=== PATIENT | female | born 1940 | race Caucasian/White ===

== ENCOUNTER 2017-11-01 15:15 | Outpatient (RCR) | payer MEDICARE, SELFPAY ==
--- NOTE | 2017-09-27 10:42 | PT.OTN ---
Current Diagnoses Other chronic pain (09/27/17) Bilateral primary osteoarthritis of knee (09/27/17) Pain in right knee (09/27/17) Other specified enthesopathies of unspecified lower limb, excluding foot (09/27/17) Transition note: On September 26, 2017 our therapy services consisting of Speech, Occupational, and Physical Therapy transitioned from the [employer] electronic documentation system to a new [employer] electronic documentation system.?? All documentation prior to September 26 can be found under [employer] saved data. From September 26 forward all medical record documentation will be in [employer] 6.1.
--- NOTE | 2017-09-27 14:45 | PT.OTN ---
Current Diagnoses Other chronic pain (09/27/17) Bilateral primary osteoarthritis of knee (09/27/17) Pain in right knee (09/27/17) Other specified enthesopathies of unspecified lower limb, excluding foot (09/27/17) Physical Therapy Treatment Note PT-OP-A Visit Information Start: 09/27/17 12:51 Freq: Status: Active Protocol: Activity Type Activity Date Activity User E-Sign Co-Sign Detail Recorded Client Recorded Date Recorded By Document 09/27/17 14:42 EA [id number] 09/27/17 14:44 EA 09/27/17 14:42 Out-Patient Physical Therapy Visit Information [Visit Information] -Visit Type Treatment Note -Total Visit Minutes 46 -Visit Number 3 -Number of SHOP SUPERVISOR Visits 0 PT-OP-C Subjective Start: 09/27/17 12:51 Freq: Status: Active Protocol: Activity Type Activity Date Activity User E-Sign Co-Sign Detail Recorded Client Recorded Date Recorded By Document 09/27/17 12:52 EA [id number] 09/27/17 12:54 EA 09/27/17 12:52 OP-PT Subjective [Patient Comments] -Patient Comments Patient reports she has been following recommended HEP and knee pain is much less at this time. Patient wants to know if previous cardio machine exercise still possible. -Patient Reported Progress Improving PT-OP-Q Treatments Start: 09/27/17 12:51 Freq: Status: Active Protocol: Activity Type Activity Date Activity User E-Sign Co-Sign Detail Recorded Client Recorded Date Recorded By Document 09/27/17 12:54 EA [id number] 09/27/17 13:01 EA 09/27/17 12:54 Cardio Equipment [Recumbent Elliptical ([employer])] -Duration (Minutes) 8 -Resistance 2 Gym Equipment [Shuttle Recovery] Unilateral Squats -Details R, SLS -Resistance 1 cord -Shuttle Recovery Platform Stable -Reps/Time 15 reps x 2 Bilateral Squats -Details 0-90 angle -Shuttle Recovery Platform Stable -Reps/Time 15 reps x 2 at 2 cords Therapeutic Exercises [Other Exercises] 1 -Other Exercise Name Sit to stand squat w/ hand support to progress with heel raises -Side bilateral -Resistance BW -Equipment Used // bars/rails -Reps/Minutes 10 reps x 2 -Comments knees not over toes Self-Care/Home Management Treatment [Education] -Patient Education Home Exercise Program -Other Education Patient educated w/ proper exercises sequencing from wam-up, cardio to HEP. PT-OP-R Modalities Start: 09/27/17 12:51 Freq: Status: Active Protocol: Activity Type Activity Date Activity User E-Sign Co-Sign Detail Recorded Client Recorded Date Recorded By Document 09/27/17 13:01 CARY [email or web address] 09/27/17 13:03 EA 09/27/17 13:01 Electric Stimulation [Electric Stimulation] Interferential Current (IFC) -Body Location Medial hamstring/quads -Duration (Minutes) 15 -Contraction Type Normal -Target/Sweep Target -High/Low High -Patient Position Supine -Combined With Heat/Cold Cold Pack Hot Pack/Cold Pack [Treatment] Cold Pack -Patient Position Supine -Treatment Duration (minutes) 15 -Patient Tolerance Good Ultrasound Therapy [Treatment] Right Knee -Treatment Duration (minutes) 8 -Patient Position Supine -Coupling Medium Ultrasound Gel -Frequency Setting (mHz) 1 -Mode Setting Pulsed -Intensity Setting (w/cm2) 1.0 -Patient Tolerance Fair [Comment] -Treatment Comment medial hamstring distal tendon, and medial distal quads tendon. PT-OP-T Assessment and Plan Start: 09/27/17 12:51 Freq: Status: Active Protocol: Activity Type Activity Date Activity User E-Sign Co-Sign Detail Recorded Client Recorded Date Recorded By Document 09/27/17 14:28 CARY [id number] 09/27/17 14:31 EA 09/27/17 14:28 Physical Therapy Assessment [Assessment Summary] -Assessment Patient unable to tolerate leg extension and curl machine due to increased of knee pain, however other exercises did not show increased in symptoms. Recommended patient begin cardio machine at home w/ min to moderate intensity and ice knee after any exercises. Physical Therapy Plan [Next Visit Focus/Plan] -Next Visit Plan Cont w/ current rehab. To begin with Isotonic ankle weight knee and hip exercises to right LE or as tolerated.
--- NOTE | 2017-09-29 12:41 | PT.OTN ---
Current Diagnoses Other chronic pain (09/29/17) Bilateral primary osteoarthritis of knee (09/29/17) Pain in right knee (09/29/17) Other specified enthesopathies of unspecified lower limb, excluding foot (09/29/17) Physical Therapy Treatment Note PT-OP-A Visit Information Start: 09/27/17 12:51 Freq: Status: Active Protocol: Activity Type Activity Date Activity User E-Sign Co-Sign Detail Recorded Client Recorded Date Recorded By Document 09/29/17 09:45 GGD [email or web address] 09/29/17 12:33 GGD 09/29/17 09:45 Out-Patient Physical Therapy Visit Information [Visit Information] -Visit Type Treatment Note -Total Visit Minutes 55 -Visit Number 4 -Number of ADVERTISING ASSOCIATE Visits 1 PT-OP-C Subjective Start: 09/27/17 12:51 Freq: Status: Active Protocol: Activity Type Activity Date Activity User E-Sign Co-Sign Detail Recorded Client Recorded Date Recorded By Document 09/29/17 09:45 GGD [email or web address] 09/29/17 12:33 GGD 09/29/17 09:45 OP-PT Subjective [Patient Comments] -Patient Comments Pt states she not having pain and is walking up to 3/4 of a mil. -Patient Reported Progress Improving PT-OP-Q Treatments Start: 09/27/17 12:51 Freq: Status: Active Protocol: Activity Type Activity Date Activity User E-Sign Co-Sign Detail Recorded Client Recorded Date Recorded By Document 09/29/17 09:45 GGD [email or web address] 09/29/17 12:41 GGD 09/29/17 09:45 Cardio Equipment [Recumbent Elliptical ([employer])] -Duration (Minutes) 8 -Resistance 2 -Seat Position 7 Gym Equipment [Shuttle Recovery] Unilateral Squats -Details R, SLS -Resistance 25# -Shuttle Recovery Platform Stable -Reps/Time 15 reps x 2 Bilateral Squats -Details 0-90 angle -Resistance 50# -Shuttle Recovery Platform Stable -Reps/Time 15 reps x 2 Therapeutic Exercises [Supine Exercises] 2 -Supine Exercise Name SAQ -Side right -Resistance 1 -Equipment Used ankle weight -Reps/Minutes 10x 1 -Supine Exercise Name SLR -Side right -Reps/Minutes 10 [Sidelying Exercises] 1 -Sidelying Exercise Name Hip abd -Side right -Resistance 1# -Equipment Used ankle weight -Reps/Minutes 15 [Other Exercises] 1 -Other Exercise Name Sit to stand squat w/ hand support to progress with heel raises -Side bilateral -Resistance BW -Equipment Used // bars/rails -Reps/Minutes 10 reps x 2 -Comments knees not over toes PT-OP-R Modalities Start: 09/27/17 12:51 Freq: Status: Active Protocol: Activity Type Activity Date Activity User E-Sign Co-Sign Detail Recorded Client Recorded Date Recorded By Document 09/29/17 09:45 GGD [email or web address] 09/29/17 12:41 GGD 09/29/17 09:45 Electric Stimulation [Electric Stimulation] Interferential Current (IFC) -Body Location Medial hamstring/quads -Duration (Minutes) 15 -Contraction Type Normal -Target/Sweep Sweep -High/Low High -Patient Position Supine -Combined With Heat/Cold Cold Pack Ultrasound Therapy [Treatment] Right Knee -Treatment Duration (minutes) 8 -Patient Position Supine -Coupling Medium Ultrasound Gel -Frequency Setting (mHz) 3 -Mode Setting Pulsed -Intensity Setting (w/cm2) 1.0 -Patient Tolerance Good PT-OP-T Assessment and Plan Start: 09/27/17 12:51 Freq: Status: Active Protocol: Activity Type Activity Date Activity User E-Sign Co-Sign Detail Recorded Client Recorded Date Recorded By Document 09/29/17 09:45 GGD [email or web address] 09/29/17 12:41 GGD 09/29/17 09:45 Physical Therapy Assessment [Assessment Summary] -Assessment Pt improving with LE strengthening tolerance. She was unable to tolerated SLR with ankle weight and LAQ. She had improved tolerance to PUS. Physical Therapy Plan [Frequency and Duration] -Frequency of Treatment 2 -Duration of Treatment 8 weeks -Plan of Care Start Date 09/19/17 -Plan of Care End Date 11/13/17 [Next Visit Focus/Plan] -Next Visit Plan Progress under current plan of care. Increase LE strengthening as tolerated.
--- NOTE | 2017-10-03 14:33 | PT.OTN ---
Current Diagnoses Other chronic pain (10/03/17) Bilateral primary osteoarthritis of knee (10/03/17) Pain in right knee (10/03/17) Other specified enthesopathies of unspecified lower limb, excluding foot (10/03/17) Physical Therapy Treatment Note PT-OP-A Visit Information Start: 09/27/17 12:51 Freq: Status: Active Protocol: Activity Type Activity Date Activity User E-Sign Co-Sign Detail Recorded Client Recorded Date Recorded By Document 10/03/17 11:15 GGD [email or web address] 10/03/17 14:33 [facility] 10/03/17 11:15 Out-Patient Physical Therapy Visit Information [Visit Information] -Visit Type Treatment Note -Visit Start Time 11:15 -Visit Stop Time 12:10 -Total Visit Minutes 55 -Visit Number 5 -Number of HEALTH SANITARIAN Visits 2 [Evaluation Information] -Evaluation Date 09/19/17 PT-OP-C Subjective Start: 09/27/17 12:51 Freq: Status: Active Protocol: Activity Type Activity Date Activity User E-Sign Co-Sign Detail Recorded Client Recorded Date Recorded By Document 10/03/17 11:15 GGD [email or web address] 10/03/17 14:33 GGD 10/03/17 11:15 OP-PT Subjective [Patient Comments] -Patient Comments Pt states that she doing her HEP and feels less pain. -Patient Reported Progress Improving PT-OP-Q Treatments Start: 09/27/17 12:51 Freq: Status: Active Protocol: Activity Type Activity Date Activity User E-Sign Co-Sign Detail Recorded Client Recorded Date Recorded By Document 10/03/17 11:15 GGD [email or web address] 10/03/17 14:33 GGD 10/03/17 11:15 Cardio Equipment [Recumbent Elliptical ([employer])] -Duration (Minutes) 8 -Resistance 2 -Seat Position 7 Gym Equipment [Shuttle Recovery] Unilateral Squats -Details R, SLS -Resistance 25# -Shuttle Recovery Platform Stable -Reps/Time 15 reps x 2 Bilateral Squats -Details 0-90 angle -Resistance 62# -Shuttle Recovery Platform Stable -Reps/Time 15 reps x 2 Therapeutic Exercises [Supine Exercises] 2 -Supine Exercise Name SAQ -Side right -Resistance 1 -Equipment Used ankle weight -Reps/Minutes 10x 1 -Supine Exercise Name SLR -Side right -Reps/Minutes 10 x 2 [Sidelying Exercises] 1 -Sidelying Exercise Name Hip abd -Side right -Resistance 1# -Equipment Used ankle weight -Reps/Minutes 15 [Other Exercises] 1 -Other Exercise Name Sit to stand squat w/ hand support to progress with heel raises -Side bilateral -Resistance BW -Equipment Used // bars/rails -Reps/Minutes 10 reps x 2 -Comments knees not over toes PT-OP-R Modalities Start: 09/27/17 12:51 Freq: Status: Active Protocol: Activity Type Activity Date Activity User E-Sign Co-Sign Detail Recorded Client Recorded Date Recorded By Document 10/03/17 11:15 GGD [email or web address] 10/03/17 14:33 GGD 10/03/17 11:15 Electric Stimulation [Electric Stimulation] Interferential Current (IFC) -Body Location Medial hamstring/quads -Duration (Minutes) 15 -Contraction Type Normal -Target/Sweep Sweep -High/Low High -Patient Position Supine -Combined With Heat/Cold Cold Pack Ultrasound Therapy [Treatment] Right Knee -Treatment Duration (minutes) 8 -Patient Position Supine -Coupling Medium Ultrasound Gel -Frequency Setting (mHz) 3 -Mode Setting Pulsed -Intensity Setting (w/cm2) 1.0 -Patient Tolerance Good PT-OP-T Assessment and Plan Start: 09/27/17 12:51 Freq: Status: Active Protocol: Activity Type Activity Date Activity User E-Sign Co-Sign Detail Recorded Client Recorded Date Recorded By Document 10/03/17 11:15 GGD [email or web address] 10/03/17 14:33 GGD 10/03/17 11:15 Physical Therapy Assessment [Assessment Summary] -Assessment Pt improving with LE strengthening tolerance and decrease extensor lag with SLR. Physical Therapy Plan [Frequency and Duration] -Frequency of Treatment 2 -Duration of Treatment 8 weeks -Plan of Care Start Date 09/19/17 -Plan of Care End Date 11/13/17 [Next Visit Focus/Plan] -Next Visit Plan Progress under current plan of care. Increase LE strengthening, LAQ.
--- NOTE | 2017-10-05 13:51 | PT.OTN ---
Current Diagnoses Other chronic pain (10/05/17) Bilateral primary osteoarthritis of knee (10/05/17) Pain in right knee (10/05/17) Other specified enthesopathies of unspecified lower limb, excluding foot (10/05/17) Physical Therapy Treatment Note PT-OP-A Visit Information Start: 09/27/17 12:51 Freq: Status: Active Protocol: Document 10/05/17 11:11 EA (Rec: 10/05/17 11:15 EA [id number]) Out-Patient Physical Therapy Visit Information Visit Information Visit Type Treatment Note Visit Start Time 10:30 Visit Stop Time 11:25 Total Visit Minutes 55 Visit Number 6 Number of MULTIPLE DRILL OPERATOR Visits 2 PT-OP-C Subjective Start: 09/27/17 12:51 Freq: Status: Active Protocol: Document 10/05/17 11:11 EA (Rec: 10/05/17 11:15 EA [id number]) OP-PT Subjective Patient Comments Patient Comments Patient reports has been compliant to HEP and is improving; states she feels much improve at this time. Patient Reported Progress Improving PT-OP-Q Treatments Start: 09/27/17 12:51 Freq: Status: Active Protocol: Document 10/05/17 13:05 EA (Rec: 10/05/17 13:50 EA [id number]) Cardio Equipment Recumbent Elliptical ([employer]) Duration (Minutes) 8 Resistance 2 Seat Position 7 Therapeutic Exercises Supine Exercises 1 Supine Exercise Name SLR Side right Reps/Minutes 10 x 2 Sitting Exercises 2 Sitting Exercise Name Hip flexion Side bilateral Resistance 5 lbs AW Reps/Minutes 12 x 2 1 Sitting Exercise Name leg extension pain free Side right Resistance ankle weight x 2 lbs Reps/Minutes 12 x 3 Other Exercises 1 Other Exercise Name Sit to stand squat w/ hand support to progress with heel raises Side bilateral Resistance BW Equipment Used // bars/rails Reps/Minutes 10 reps x 2 Comments knees not over toes PT-OP-R Modalities Start: 09/27/17 12:51 Freq: Status: Active Protocol: Document 10/05/17 13:05 EA (Rec: 10/05/17 13:50 EA [id number]) Electric Stimulation Electric Stimulation Interferential Current (IFC) Body Location Medial hamstring/quads Duration (Minutes) 15 Contraction Type Normal Target/Sweep Sweep High/Low High Patient Position Supine Combined With Heat/Cold Cold Pack Ultrasound Therapy Treatment Right Knee Treatment Duration (minutes) 8 Patient Position Supine Frequency Setting (mHz) 1 Mode Setting Pulsed Intensity Setting (w/cm2) 1.2 Patient Tolerance Good PT-OP-T Assessment and Plan Start: 09/27/17 12:51 Freq: Status: Active Protocol: Document 10/05/17 11:11 EA (Rec: 10/05/17 11:15 EA [id number]) Physical Therapy Assessment Assessment Summary Assessment Patient tolerated treatment and is improving well. Physical Therapy Plan Next Visit Focus/Plan Next Visit Plan Cont. w/ current plan.
--- NOTE | 2017-10-10 16:01 | PT.OTN ---
Current Diagnoses Other chronic pain (10/10/17) Bilateral primary osteoarthritis of knee (10/10/17) Pain in right knee (10/10/17) Other specified enthesopathies of unspecified lower limb, excluding foot (10/10/17) Physical Therapy Treatment Note PT-OP-A Visit Information Start: 09/27/17 12:51 Freq: Status: Active Protocol: Document 10/10/17 15:23 EA (Rec: 10/10/17 15:58 EA [id number]) Out-Patient Physical Therapy Visit Information Visit Information Visit Type Treatment Note Visit Start Time 02:30 Visit Stop Time 03:25 Visit Number 7 PT-OP-C Subjective Start: 09/27/17 12:51 Freq: Status: Active Protocol: Document 10/10/17 15:23 EA (Rec: 10/10/17 15:58 EA [id number]) OP-PT Subjective Patient Comments Patient Comments Pt reports both knees quite sore last session but much feeling better at this time. Pt states that she has been complaint w/ HEP. Patient Reported Progress Improving PT-OP-Q Treatments Start: 09/27/17 12:51 Freq: Status: Active Protocol: Document 10/10/17 15:23 EA (Rec: 10/10/17 15:58 EA [id number]) Cardio Equipment Recumbent Elliptical ([employer]) Duration (Minutes) 8 Resistance 2 Seat Position 8 Gym Equipment Shuttle Recovery Unilateral Squats Details R, SLS Resistance 25# Shuttle Recovery Platform Stable Reps/Time 15 reps x 2 Bilateral Squats Details 0-90 angle Resistance 62# Shuttle Recovery Platform Stable Reps/Time 15 reps x 2 Therapeutic Exercises Supine Exercises 2 Supine Exercise Name SAQ Side right Resistance 1 Equipment Used ankle weight Reps/Minutes 10x 1 Supine Exercise Name SLR Side right Reps/Minutes 10 x 2 Sitting Exercises 2 Sitting Exercise Name Hip flexion Side bilateral Resistance 5 lbs AW Reps/Minutes 12 x 2 1 Sitting Exercise Name leg extension pain free Side right Resistance ankle weight x 2 lbs Reps/Minutes 12 x 3 Other Exercises 1 Other Exercise Name Sit to stand squat w/ hand support to progress with heel raises Side bilateral Resistance BW Equipment Used // bars/rails Reps/Minutes 10 reps x 2 Comments knees not over toes PT-OP-R Modalities Start: 09/27/17 12:51 Freq: Status: Active Protocol: Document 10/10/17 15:23 EA (Rec: 10/10/17 15:58 EA [id number]) Electric Stimulation Electric Stimulation Interferential Current (IFC) Body Location Medial hamstring/quads Duration (Minutes) 15 Contraction Type Normal Target/Sweep Sweep High/Low High Patient Position Supine Combined With Heat/Cold Cold Pack Ultrasound Therapy Treatment Right Knee Treatment Duration (minutes) 8 Patient Position Supine Frequency Setting (mHz) 1 Mode Setting Pulsed Intensity Setting (w/cm2) 1.2 Patient Tolerance Good PT-OP-T Assessment and Plan Start: 09/27/17 12:51 Freq: Status: Active Protocol: Document 10/10/17 15:23 EA (Rec: 10/10/17 15:58 EA [id number]) Physical Therapy Assessment Assessment Summary Assessment Patient had improved strength and tolerance to exercises today; high sensitive pain spot still noted to medial distal quads tendon. Physical Therapy Plan Next Visit Focus/Plan Next Visit Plan Progress under current joyce; add wlla squat next visit as tolerated.
--- NOTE | 2017-10-12 13:46 | PT.OTN ---
Current Diagnoses Other chronic pain (10/12/17) Bilateral primary osteoarthritis of knee (10/12/17) Pain in right knee (10/12/17) Other specified enthesopathies of unspecified lower limb, excluding foot (10/12/17) Physical Therapy Treatment Note PT-OP-A Visit Information Start: 09/27/17 12:51 Freq: Status: Active Protocol: Document 10/12/17 12:14 EA (Rec: 10/12/17 13:03 EA [id number]) Out-Patient Physical Therapy Visit Information Visit Information Visit Type Treatment Note Visit Start Time 09:45 Visit Stop Time 10:30 Visit Number 7 PT-OP-C Subjective Start: 09/27/17 12:51 Freq: Status: Active Protocol: Document 10/12/17 12:14 EA (Rec: 10/12/17 13:03 EA [id number]) OP-PT Subjective Patient Comments Patient Comments Patient reports new knee pain appears in the morning but decreased after few activities; states today much feel better. Patient Reported Progress Improving PT-OP-Q Treatments Start: 09/27/17 12:51 Freq: Status: Active Protocol: Document 10/12/17 12:14 EA (Rec: 10/12/17 13:03 EA [id number]) Cardio Equipment Recumbent Elliptical ([employer]) Duration (Minutes) 8 Resistance 3 Gym Equipment Shuttle Recovery Unilateral Squats Details R, SLS Resistance 25- 37 Shuttle Recovery Platform Stable Reps/Time 15 reps x 3 Bilateral Squats Details 0-90 angle Resistance 50 -87 Shuttle Recovery Platform Stable Reps/Time 15 reps x3 Therapeutic Exercises Supine Exercises 1 Supine Exercise Name SLR Side right Reps/Minutes 10 x 2 Sidelying Exercises 1 Sidelying Exercise Name Hip abd Side right Resistance 1# Equipment Used ankle weight Reps/Minutes 15 Sitting Exercises 2 Sitting Exercise Name Hip flexion Side bilateral Resistance 5 lbs AW Reps/Minutes 12 x 2 1 Sitting Exercise Name leg extension pain free Side right Resistance ankle weight x 2 lbs Reps/Minutes 12 x 3 Other Exercises 1 Other Exercise Name Sit to stand squat w/ hand support to progress with heel raises Side bilateral Resistance BW Equipment Used // bars/rails Reps/Minutes 10 reps x 2 Comments knees not over toes PT-OP-R Modalities Start: 09/27/17 12:51 Freq: Status: Active Protocol: Document 10/12/17 12:14 EA (Rec: 10/12/17 13:03 EA [id number]) Electric Stimulation Electric Stimulation Interferential Current (IFC) Contraction Type Normal Combined With Heat/Cold Cold Pack PT-OP-T Assessment and Plan Start: 09/27/17 12:51 Freq: Status: Active Protocol: Document 10/12/17 12:14 EA (Rec: 10/12/17 13:03 EA [id number]) Physical Therapy Assessment Progress Towards Goals Progress Towards Goals Slow Progress - Other Assessment Summary Assessment Tolerated treatment well; no signs of acute inflammation Physical Therapy Plan Next Visit Focus/Plan Next Visit Plan Cont. with current plan; progress as tolerated
--- NOTE | 2017-10-17 17:06 | PT.OTN ---
Current Diagnoses Other chronic pain (10/17/17) Bilateral primary osteoarthritis of knee (10/17/17) Pain in right knee (10/17/17) Other specified enthesopathies of unspecified lower limb, excluding foot (10/17/17) Physical Therapy Treatment Note PT-OP-A Visit Information Start: 09/27/17 12:51 Freq: Status: Active Protocol: Document 10/17/17 13:45 GGD (Rec: 10/17/17 17:06 GGD [email or web address]) Out-Patient Physical Therapy Visit Information Visit Information Visit Type Treatment Note Visit Start Time 13:45 Visit Stop Time 14:40 Total Visit Minutes 55 Visit Number 9 Number of TASSEL MAKING MACHINE OPERATOR Visits 1 Evaluation Information Evaluation Date 09/19/17 PT-OP-C Subjective Start: 09/27/17 12:51 Freq: Status: Active Protocol: Document 10/17/17 13:45 GGD (Rec: 10/17/17 17:06 GGD [email or web address]) OP-PT Subjective Patient Comments Patient Comments Pt states knee pain and strength is improving. Patient Reported Progress Improving PT-OP-Q Treatments Start: 09/27/17 12:51 Freq: Status: Active Protocol: Document 10/17/17 13:45 GGD (Rec: 10/17/17 17:06 GGD [email or web address]) Cardio Equipment Recumbent Elliptical ([employer]) Duration (Minutes) 8 Resistance 3 Gym Equipment Shuttle Recovery Unilateral Squats Details R, SLS Resistance 25- 37 Shuttle Recovery Platform Stable Reps/Time 15 reps x 3 Bilateral Squats Details 0-90 angle Resistance 50 -87 Shuttle Recovery Platform Stable Reps/Time 15 reps x3 Therapeutic Exercises Supine Exercises 1 Supine Exercise Name SLR Side right Resistance 1# Reps/Minutes 10 x 2 Sidelying Exercises 1 Sidelying Exercise Name Hip abd Side right Resistance 1# Equipment Used ankle weight Reps/Minutes 15 Sitting Exercises 1 Sitting Exercise Name leg extension pain free Side right Resistance ankle weight x 2 lbs Reps/Minutes 12 x 3 Standing Exercises 2 Standing Exercise Name step ups Equipment Used 4 in 1 Standing Exercise Name wall squats with ball Reps/Minutes 10 Other Exercises 1 Other Exercise Name Sit to stand squat w/ hand support to progress with heel raises Side bilateral Resistance BW Equipment Used // bars/rails Reps/Minutes 10 reps x 2 Comments knees not over toes PT-OP-R Modalities Start: 09/27/17 12:51 Freq: Status: Active Protocol: Document 10/17/17 13:45 GGD (Rec: 10/17/17 17:06 GGD [email or web address]) Electric Stimulation Electric Stimulation Interferential Current (IFC) Body Location Medial hamstring/quads Duration (Minutes) 15 Contraction Type Normal Target/Sweep Sweep High/Low High Patient Position Supine Combined With Heat/Cold Cold Pack PT-OP-T Assessment and Plan Start: 09/27/17 12:51 Freq: Status: Active Protocol: Document 10/17/17 13:45 GGD (Rec: 10/17/17 17:06 GGD [email or web address]) Physical Therapy Assessment Assessment Summary Assessment Slow improvement in strength, diffcultly with squats and stairs. Physical Therapy Plan Frequency and Duration Frequency of Treatment 2 Duration of Treatment 8 weeks Plan of Care Start Date 09/19/17 Plan of Care End Date 11/13/17 Next Visit Focus/Plan Next Visit Plan Re-eval objective measurements for progress note and g-codes
--- NOTE | 2017-11-02 11:06 | PT.OTRE ---
Current Diagnoses Other chronic pain (11/01/17) Bilateral primary osteoarthritis of knee (11/01/17) Pain in right knee (11/01/17) Other specified enthesopathies of unspecified lower limb, excluding foot (11/01/17) Surgical History Status post appendectomy Status post laparoscopic cholecystectomy (04/07/16) Provider Visit Care Team Role Provider Type Andrew Gonzalez MD Family Provider Physician Primary Care Provider Specialty: Internal Medicine Address: [address] [place] [address] [address], [address] Email: [email or web address] Rito Zurita DO Attending Provider Non-Staff Specialty: Orthopedics Address: [address] [facility] [place] [address], [place], [address] Email: Physical Therapy Re-Evaluation PT-OP-A Visit Information Start: 09/27/17 12:51 Freq: Status: Active Protocol: Document 11/01/17 17:00 EA (Rec: 11/01/17 17:27 EA [id number]) Out-Patient Physical Therapy Visit Information Visit Information Visit Type Treatment Note Visit Note Progress reports perform to this session. Total Visit Minutes 15 Visit Number 10 PT-OP-B Current Condition Start: 09/27/17 12:51 Freq: Status: Active Protocol: Document 11/01/17 17:00 EA (Rec: 11/01/17 17:27 EA [id number]) Current Condition History of Current Condition Onset Date 5 years chronic condition and was intensified earlier in 2018. History of Current Condition Present condition started 5 years ago with single injury reports that she hyperextend the knee years ago; states pain disappear and was able to function few after the injury . Pt states earlier this year when she noted right knee pain is increasing and is not improving. Patient had 10 PT session including today's date and has been improving since the last visit until last week when patient accidentally hyperextend the knee and aggravated the condition. Patient seen his doctor and MRI reveals meniscal tear with severe tricompartmental OA. Prior Treatments and Tests Skilled PT sessions x 9 Future Testing and Treatments Planned None at the moment Treatment Goals Patient/Caregiver Goals Patient wants to decrease knee pain and strengthen it so she could perform usual daily activities without discomfort. Prior Functional Status Baseline Function- ADL's Independent Baseline Function- Mobility Independent Current Functional Impairments (Reported) Functional Limitations- ADL's Indep with increase time. Functional Limitations- Mobility/Gait Indep with increase time with STC and knee brace PT-OP-C Subjective Start: 09/27/17 12:51 Freq: Status: Active Protocol: Document 11/01/17 17:00 EA (Rec: 11/01/17 17:27 EA [id number]) OP-PT Subjective Patient Comments Patient Comments Patient reports right knee got worsen after hyperextending ( ) it while doing garden work. Patient reports that she feels better that morning prior to injury where she was able to climb up stairs without difficulty in which she was not able to do it for a long time. Patient states that she will follow her doctor advised to reduced inflammation and pain before coming back to skilled PT. Patient Reported Progress Worse Patient Questionnaires Oswestry Low Back Index Oswestry Score 73 (October 17 Prior to latest injury) PT-OP-G Mobility & Gait Start: 09/27/17 12:51 Freq: Status: Active Protocol: Document 11/01/17 17:00 EA (Rec: 11/01/17 17:27 EA [id number]) OP Gait Assessment Assistive Devices Assistive Device Straight Cane Orthotic/Prosthetic Devices or Brace: Yes Gait Deviations General Gait Pattern Antalgic Factors Limiting Gait Function Factors Limiting Gait Function Decreased Strength Pain Comments Gait Comments Decreased WB to right LE PT-OP-M Strength Start: 09/27/17 12:51 Freq: Status: Active Protocol: Document 11/01/17 17:00 EA (Rec: 11/02/17 11:01 EA [id number]) Knee Strength Knee Manual Muscle Testing Right Flexion (S2) 4- Good- Extension (L3) 3- Fair- Reason Not Measured Pain Comments weakness and atrophy of quads PT-OP-Q Treatments Start: 09/27/17 12:51 Freq: Status: Active Protocol: Document 11/01/17 17:00 EA (Rec: 11/01/17 17:27 EA [id number]) Gait Training Gait Activity 1 Description Level ambulation: heel to toe gait pattern step through Treatment Focus Step through gait PT-OP-R Modalities Start: 09/27/17 12:51 Freq: Status: Active Protocol: Document 10/17/17 13:45 GGD (Rec: 10/17/17 17:06 GGD [id number]) Electric Stimulation Electric Stimulation Interferential Current (IFC) Body Location Medial hamstring/quads Duration (Minutes) 15 Contraction Type Normal Target/Sweep Sweep High/Low High Patient Position Supine Combined With Heat/Cold Cold Pack PT-OP-T Assessment and Plan Start: 09/27/17 12:51 Freq: Status: Active Protocol: Document 11/01/17 17:00 EA (Rec: 11/01/17 17:27 EA [id number]) Physical Therapy Assessment Rehab Potential Rehabilitation Potential Fair Impairments Impairments Activity Tolerance Gait Pain ROM Strength Goals Three Impairment Grade 2 tenderness to right anterior knee (distomedial side) Skilled Nursing Goal (LTG) Patient will exhibit Grade 1 tenderness to right ant knee LTG Duration 4 wks. Two Impairment Weakness to right knee extensors Skilled Nursing Goal (LTG) Patient will exhibit MMT to right knee extensors of at least 3+/5 LTG Duration 4 wks One Impairment Pain score 6/10 Relays Draftsperson Goal (LTG) Patient will reports pain score of 2/10 with weight bearing activities. LTG Duration 4 wks Progress Towards Goals Progress Towards Goals Slow Progress - Other Progress Comments Patient exhibits relapse at this time due to recent home incident. Assessment Summary Assessment Patient requested to cancel all appointment and will call back once she is ready. Patient had relapsed due to recent injury at home. I recommended to focus on decreasing inflammation and other symptoms prior to resuming physical therapy. I recommended to see her physician for further advise and recommendations. Physical Therapy Plan Frequency and Duration Frequency of Treatment 2 x/wk once advise Plan of Care Start Date 11/01/17 Plan of Care End Date 12/20/17 Therapeutic Interventions Therapeutic Interventions Gait Training Home Exercise Program Joint Mobilizations Self-Care/Home Management Soft Tissue Mobilization Taping Therapeutic Exercises Modalities Cold Pack/Ice Massage Electric Stimulation Ultrasound Hold Physical Therapy Reason For Hold Patient request. Next Visit Focus/Plan Next Note Type Treatment Note Next Visit Plan assessment would be indicate prior to commencing planned PT program. Please Sign and Return: I have reviewed this Plan of Care and certify that the skilled therapy services above are required to meet the patient?s needs. Physician Signature Date Printed Name and Credentials Clinical Instructor Signature Printed Name and Credentials
--- NOTE | 2017-11-02 11:07 | PT.OPPOC ---
Current Diagnoses Other chronic pain (11/01/17) Bilateral primary osteoarthritis of knee (11/01/17) Pain in right knee (11/01/17) Other specified enthesopathies of unspecified lower limb, excluding foot (11/01/17) Provider Visit Care Team Role Provider Type Andrew Gonzalez MD Family Provider Physician Primary Care Provider Specialty: Internal Medicine Address: [address] [place] [address] [address], [place], [address] Email: [email or web address] Rito Zurita DO Attending Provider Non-Staff Specialty: Orthopedics Address: [address] [facility] [address], [place], [address] Email: Plan Of Care PT-OP-T Assessment and Plan Start: 09/27/17 12:51 Freq: Status: Active Protocol: Document 11/01/17 17:00 CARY (Rec: 11/01/17 17:27 EA [id number]) Physical Therapy Assessment Rehab Potential Rehabilitation Potential Fair Impairments Impairments Activity Tolerance Gait Pain ROM Strength Goals Three Impairment Grade 2 tenderness to right anterior knee (distomedial side) Halfway Goal (LTG) Patient will exhibit Grade 1 tenderness to right ant knee LTG Duration 4 wks. Two Impairment Weakness to right knee extensors Halfway Goal (LTG) Patient will exhibit MMT to right knee extensors of at least 3+/5 LTG Duration 4 wks One Impairment Pain score 6/10 Halfway Goal (LTG) Patient will reports pain score of 2/10 with weight bearing activities. LTG Duration 4 wks Progress Towards Goals Progress Towards Goals Slow Progress - Other Progress Comments Patient exhibits relapse at this time due to recent home incident. Assessment Summary Assessment Patient requested to cancel all appointment and will call back once she is ready. Patient had relapsed due to recent injury at home. I recommended to focus on decreasing inflammation and other symptoms prior to resuming physical therapy. I recommended to see her physician for further advise and recommendations. Physical Therapy Plan Frequency and Duration Frequency of Treatment 2 x/wk once advise Plan of Care Start Date 11/01/17 Plan of Care End Date 12/20/17 Therapeutic Interventions Therapeutic Interventions Gait Training Home Exercise Program Joint Mobilizations Self-Care/Home Management Soft Tissue Mobilization Taping Therapeutic Exercises Modalities Cold Pack/Ice Massage Electric Stimulation Ultrasound Hold Physical Therapy Reason For Hold Patient request. Next Visit Focus/Plan Next Note Type Treatment Note Next Visit Plan assessment would be indicate prior to commencing planned PT program. Plan of Care Dates Plan of Care Start Date 11/01/17 Plan of Care End Date 12/20/17 Please Sign and Return: I have reviewed this Plan of Care and certify that the skilled therapy services above are required to meet the patient?s needs. Physician Signature Date Printed Name and Credentials Clinical Instructor Signature Printed Name and Credentials
--- NOTE | 2018-02-27 14:15 | PT.OPDS ---
Current Diagnoses Other chronic pain (11/01/17) Bilateral primary osteoarthritis of knee (11/01/17) Pain in right knee (11/01/17) Other specified enthesopathies of unspecified lower limb, excluding foot (11/01/17) Provider Visit Care Team Role Provider Type Andrew Gonzalez MD Family Provider Physician Primary Care Provider Specialty: Internal Medicine Address: [address] [place] [address] [address], [address] Email: [email or web address] Rito Zurita DO Attending Provider Non-Staff Specialty: Orthopedics Address: [address] [facility] [address], [place], [address] Email: Visit Number Visit Number 10 Discharge Summary PT-OP-B Current Condition Start: 09/27/17 12:51 Freq: Status: Active Protocol: Document 11/01/17 17:00 EA (Rec: 11/01/17 17:27 EA [id number]) Current Condition History of Current Condition Onset Date 5 years chronic condition and was intensified earlier in 2018. History of Current Condition Present condition started 5 years ago with single injury reports that she hyperextend the knee years ago; states pain disappear and was able to function few after the injury . Pt states earlier this year when she noted right knee pain is increasing and is not improving. Patient had 10 PT session including today's date and has been improving since the last visit until last week when patient accidentally hyperextend the knee and aggravated the condition. Patient seen his doctor at MRI reveals menical tear with severe tricompartmental OA. Prior Treatments and Tests Skilled PT sessions x 9 Future Testing and Treatments Planned None at the moment Treatment Goals Patient/Caregiver Goals Patient wants to decrease knee pain and strengthen it so she could perform usual daily activities without discomfort. Prior Functional Status Baseline Function- ADL's Independent Baseline Function- Mobility Independent Current Functional Impairments (Reported) Functional Limitations- ADL's Indep with increase time. Functional Limitations- Mobility/Gait Indep with increase time with STC and knee brace PT-OP-C Subjective Start: 09/27/17 12:51 Freq: Status: Active Protocol: Document 11/01/17 17:00 EA (Rec: 11/01/17 17:27 EA [id number]) OP-PT Subjective Patient Comments Patient Comments Patient reports right knee got worsen after hyperextending ( ) it while doing garden work. Patient reports that she feels better that morning prior to injury where she was able to climb up stairs without difficulty in which she was not able to do it for a long time. Patient states that she will follow her doctor advised to reduced inflammation and pain before coming back to skilled PT. Patient Reported Progress Worse Patient Questionnaires Oswestry Low Back Index Oswestry Score 73 (October 17 Prior to latest injury) PT-OP-G Mobility & Gait Start: 09/27/17 12:51 Freq: Status: Active Protocol: Document 11/01/17 17:00 EA (Rec: 11/01/17 17:27 EA [id number]) OP Gait Assessment Assistive Devices Assistive Device Straight Cane Orthotic/Prosthetic Devices or Brace: Yes Gait Deviations General Gait Pattern Antalgic Factors Limiting Gait Function Factors Limiting Gait Function Decreased Strength Pain Comments Gait Comments Decreased WB to right LE PT-OP-M Strength Start: 09/27/17 12:51 Freq: Status: Active Protocol: Document 11/01/17 17:00 EA (Rec: 11/02/17 11:01 EA [id number]) Knee Strength Knee Manual Muscle Testing Right Flexion (S2) 4- Good- Extension (L3) 3- Fair- Reason Not Measured Pain Comments weakness and atrophy of quads PT-OP-T Assessment and Plan Start: 09/27/17 12:51 Freq: Status: Active Protocol: Document 02/27/18 14:11 EA (Rec: 02/27/18 14:15 EA [id number]) Physical Therapy Assessment Assessment Summary Assessment Patient is discharged due to no longer attending physical therapy session. Patient did not call back after advising to call back once seen by her primary care. Physical Therapy Plan Discharge Physical Therapy Discharge Reasons No Longer Attending PT
== END 2018-03-12 09:03 ==
LOC: PHYS 15:15
PROVIDERS: Family Provider Internal Medicine; PCP Internal Medicine; Visit Provider Orthopaedic Surgery
DX: M76.899 Other specified enthesopathies of unspecified lower limb, excluding foot (principal); M17.0 Bilateral primary osteoarthritis of knee; M25.561 Pain in right knee; G89.29 Other chronic pain
CPT/HCPCS: 97010; 97014; 97035; 97110; 97116; G0283

== ENCOUNTER → 2018-04-11 09:24 | Outpatient (CLI) | payer MEDICARE, SELFPAY ==
[2018-04-11 16:33] LABS: Alanine Aminotransferase 31 IU/L (9-52); Albumin 4.6 g/dL (3.5-5.0); Albumin Globulin Ratio 1.9 (1.0-2.8); Alkaline Phosphatase 88 U/L (38-126); Aspartate Aminotransferase 25 IU/L (14-36); BUN Creatinine Ratio 21.1 (6-22); Bilirubin Total 0.5 mg/dL (0.2-1.3); Blood Urea Nitrogen 19 mg/dL (7-17); Calcium 9.8 mg/dL (8.4-10.2); Carbon Dioxide 29 mmol/L (22-32); Chloride 104 mmol/L (98-107); Cholesterol 251 mg/dL (140-199); Estimated Glomerular Filt Rate > 60.0 mL/min (>60); Globulin 2.4 g/dL (1.7-4.1); Glucose 100 mg/dL (80-110); HDL Cholesterol 44 mg/dL (40-60); HEMOLYSIS < 15 (0-50); Sodium 145 mmol/L (137-145); Triglycerides 439 mg/dL (35-150)
[2018-04-11 16:42] LABS: Potassium 5.6 mmol/L (3.4-5.1)
== END ==
PROVIDERS: PCP Internal Medicine; Visit Provider Internal Medicine
DX: E78.5 Hyperlipidemia, unspecified (principal); I10 Essential (primary) hypertension; K21.9 Gastro-esophageal reflux disease without esophagitis
CPT/HCPCS: 36415; 80053; 80061

== ENCOUNTER → 2018-09-06 10:36 | Outpatient (CLI) | payer MEDICARE, SELFPAY ==
--- NOTE | 2018-09-06 | DI.MG.S_ITS ---
BILATERAL DIGITAL SCREENING MAMMOGRAM 3D/2D WITH CAD: 09/06/2018 CLINICAL: Personal history of bilateral breast cancer. Comparison is made to exams dated: 08/31/2017 mammogram, 08/11/2016 mammogram, and 08/27/2015 mammogram - [facility]. The tissue of both breasts is heterogeneously dense. This may lower the sensitivity of mammography. Current study was also evaluated with a Computer Aided Detection (CAD) system. There are benign post operative findings in both breasts. There also are benign vascular calcifications in both breasts. There are mole markers on both breasts. No significant masses, calcifications, or other findings are seen in either breast. There has been no significant interval change. IMPRESSION: There is no mammographic evidence of malignancy. A 1 year screening mammogram is recommended. This exam was interpreted at Station ID: [id number]. NOTE: For mammograms, a report in lay terms will be sent to the patient. Approximately 15% of breast malignancies will not be visualized mammographically. In the management of a palpable breast mass, a negative mammogram must not discourage biopsy of a clinically suspicious lesion. Electronically Signed By: Martínez messina/samantha:09/07/2018 03:14:06 letter sent: Normal Exam ACR BI-RADS Category 2: Benign Finding(s) 3342F
== END ==
PROVIDERS: Family Provider Internal Medicine; PCP Internal Medicine; Visit Provider Internal Medicine
DX: Z12.31 Encounter for screening mammogram for malignant neoplasm of breast (principal)
CPT/HCPCS: 77063; 77067

== ENCOUNTER 2018-12-11 08:32 | Day surgery (SDC) | payer MEDICARE, SELFPAY ==
[2018-12-11 09:45] VITALS: BP 197/87; PULSE 85; RESP 20; TEMP 36.6; O2SAT 98; BMI 24.2
[2018-12-11] MEDS: PROPARACAINE 0.5% OPHTH SOL 2 DROPS EYE-OP (09:45)
[2018-12-11] MEDS: CATARACT EYE COMPOUND (10 DROPS/SYRINGE) 3 DROPS EYE-OP (09:50)
--- NOTE | 2018-12-11 10:11 | PM.PREOP ---
Pre-operative Note Interval Note History & Physical reviewed/Exam performed by Physician: No Changes to H&P: No
--- NOTE | 2018-12-11 10:12 | PM.OP.1 ---
Operative Date/Time/Diagnoses Pre-op diagnosis: Nuclear Cataract Left eye Post-op diagnosis: same Procedure & Clinicians Surgeon: Ravi Wood Anesthesia Type: MAC +/- and Sedation Operative Notes Procedure in detail: Patient brought to the operating suite. Tetracaine drops placed in the left eye. Patient was prepped and draped in sterile manner. Wire lid speculum was placed in the eye. Betadine drops were placed on the eye. This was irrigated. Lidocaine jelly was placed on the eye. A paracentesis port was created with a side-port blade. 0.1 mL 1% preservative free lidocaine was injected into the anterior chamber. The anterior chamber was deepened with viscoelastic. 2.6 mm keratome was used to create a temporal clear corneal incision. Cystotome and Utrata forceps were used to create continuous tear capsulorrhexis. Balanced salt solution was used to hydro dissect the nucleus. The phacoemulsification handpiece was inserted and the nucleus was removed using the stop and chop technique. The irrigation aspiration handpiece was inserted and the remaining cortex was removed. Anterior chamber was deepened with viscoelastic. An Goldstein ZCB00 intraocular lens with a power of 23.0 was injected into the capsular bag. Irrigation aspiration handpiece was inserted and the remaining viscoelastic was removed. Incision was hydrated with balanced salt solution and found to be leak free with pressure with Weck-Nika sponges. 0.1 mL Vigamox injected anterior chamber. 0.3 mL Kenalog 10 mg was injected subconjunctivally. Lid speculum was removed. The patient left the operating room in excellent condition. Complications: none Condition: stable Disposition: same day surgery
[2018-12-11] MEDS: MOXIFLOXACIN OPHTH DROPS 3 ML BOTTLE 2 DROPS INJ (10:29)
[2018-12-11] MEDS: TRIAMCINOLONE 50 MG/5 ML VIAL INJ (10:29)
[2018-12-11] MEDS: PHENYLEPHRINE/LIDOCAINE VIAL (OR) 0.2 ML EYE-OP (10:29)
[2018-12-11] MEDS: TETRACAINE 0.5% OPHTH DROPS 4 ML 2 DROPS EYE-OP (10:30)
[2018-12-11] MEDS: LIDOCAINE JELLY 2% 5 ML 1 APPLIC TOP (10:30)
[2018-12-11] MEDS: BALANCED SALT IRRIG SOLN NO.2 500 ML, EPINEPHrine 1 MG IRR (10:30)
[2018-12-11] MEDS: CHONDROIDTIN/SOD HYALURONATE 1.05 ML SYRINGE INTRAOCULA (10:30)
[2018-12-11 10:47] VITALS: BP 172/99; PULSE 60; RESP 16; TEMP 36.5; O2SAT 100
== END 2018-12-11 10:55 | disposition home or self-care (01) ==
LOC: OR 08:37
PROVIDERS: Family Provider Internal Medicine; PCP Internal Medicine; Visit Provider Ophthalmology
PROC: (CPT 66984; principal; 2018-12-11 10:45)
DX: H25.12 Age-related nuclear cataract, left eye (principal); I10 Essential (primary) hypertension
CPT/HCPCS: 66984; J0171; J2250; J3301

== ENCOUNTER 2018-12-25 10:27 | Day surgery (SDC) | payer MEDICARE, SELFPAY ==
[2018-12-25 11:07] VITALS: BP 164/88; PULSE 96; RESP 16; TEMP 37.4; O2SAT 98; BMI 25.7
[2018-12-25] MEDS: PROPARACAINE 0.5% OPHTH SOL 2 DROPS EYE-OP (11:14)
[2018-12-25] MEDS: CATARACT EYE COMPOUND (10 DROPS/SYRINGE) 3 DROPS EYE-OP (11:16)
--- NOTE | 2018-12-25 11:58 | PM.PREOP ---
Pre-operative Note Interval Note History & Physical reviewed/Exam performed by Physician: No Changes to H&P: No
--- NOTE | 2018-12-25 11:58 | PM.OP.1 ---
Operative Date/Time/Diagnoses Pre-op diagnosis: Nuclear cataract right eye Procedure & Clinicians Procedure: Cataract Surgery Same procedure as scheduled: Yes Surgeon: Ravi Wood Anesthesia Type: MAC +/- and Sedation Operative Notes Procedure in detail: Patient brought to the operating suite. Tetracaine drops placed in the right eye. Patient was prepped and draped in sterile manner. Wire lid speculum was placed in the eye. Betadine drops were placed on the eye. This was irrigated. Lidocaine jelly was placed on the eye. A paracentesis port was created with a side-port blade. 0.1 mL 1% preservative free lidocaine was injected into the anterior chamber. The anterior chamber was deepened with viscoelastic. 2.6 mm keratome was used to create a temporal clear corneal incision. Cystotome and Utrata forceps were used to create continuous tear capsulorrhexis. Balanced salt solution was used to hydro dissect the nucleus. The phacoemulsification handpiece was inserted and the nucleus was removed using the stop and chop technique. The irrigation aspiration handpiece was inserted and the remaining cortex was removed. Anterior chamber was deepened with viscoelastic. An Goldstein ZCB00 intraocular lens with a power of 23.0 was injected into the capsular bag. Irrigation aspiration handpiece was inserted and the remaining viscoelastic was removed. Incision was hydrated with balanced salt solution and found to be leak free with pressure with Weck-Nika sponges. 0.1 mL Vigamox injected anterior chamber. 0.3 mL Kenalog 10 mg was injected subconjunctivally. Lid speculum was removed. The patient left the operating room in excellent condition. Complications: none Condition: stable Disposition: same day surgery
[2018-12-25] MEDS: TRIAMCINOLONE 50 MG/5 ML VIAL INJ (12:20)
[2018-12-25] MEDS: PHENYLEPHRINE/LIDOCAINE VIAL (OR) 0.2 ML EYE-OP (12:20)
[2018-12-25] MEDS: MOXIFLOXACIN OPHTH DROPS 3 ML BOTTLE 2 DROPS INJ (12:20)
[2018-12-25] MEDS: CHONDROIDTIN/SOD HYALURONATE 1.05 ML SYRINGE INTRAOCULA (12:20)
[2018-12-25] MEDS: BALANCED SALT IRRIG SOLN NO.2 500 ML, EPINEPHrine 1 MG IRR (12:21)
[2018-12-25] MEDS: TETRACAINE 0.5% OPHTH DROPS 4 ML 2 DROPS EYE-OP (12:21)
[2018-12-25] MEDS: LIDOCAINE JELLY 2% 5 ML 1 APPLIC TOP (12:21)
[2018-12-25 12:40] VITALS: BP 124/70; PULSE 70; RESP 16; TEMP 37; O2SAT 99
== END 2018-12-25 12:45 | disposition home or self-care (01) ==
LOC: OR 10:30
PROVIDERS: Family Provider Internal Medicine; PCP Internal Medicine; Visit Provider Ophthalmology
PROC: (CPT 66984; principal; 2018-12-25 12:15)
DX: H25.11 Age-related nuclear cataract, right eye (principal); I10 Essential (primary) hypertension
CPT/HCPCS: 66984; J0171; J2250; J3010; J3301

== ENCOUNTER → 2019-02-19 06:50 | Outpatient (CLI) | payer MEDICARE, SELFPAY ==
--- NOTE | 2019-02-19 06:51 | DI.ECHO.S_ITS ---
[facility]---------[facility] +---------+ : : [address] : : : : [id number] : : : : Phone: [phone]+ Echocardiogram Report + + :Name: JORDAN GONSALVES Study Date: 02/19/2019 Height: 66 in : :[facility] Exam Location: IS Weight: 160 lb : : Gender: Female BSA: 1.8 m2 : :: 1940 Age: 78 yrs BP: 142/85 mmHg: :Reason For Study: TIA, MURMUR : : Performed By: Kirk Patino : :Referring: MAURO RODRIGUEZ R : + + Interpretation Summary The left ventricle is normal in size. Left ventricular systolic function is normal without focal wall motion abnormalities. The ejection fraction is estimated to be 60-65%. The right ventricle is normal in size and function. The left atrium is mildly dilated. Right atrial size is normal. There is moderate mitral regurgitation. The aortic valve is mildly calcified. There is no hemodynamically significant valvular aortic stenosis. There is mild aortic regurgitation. There is no other significant valvular heart disease. The aortic root is normal size. Procedure: A two-dimensional transthoracic echocardiogram with color flow and Doppler was performed. The study quality was technically adequate. There is no prior echocardiogram noted for this patient. The patient was in normal sinus rhythm during the exam. The patient had occasional PACs during the exam. Left Ventricle: The left ventricle is normal in size. There is normal left ventricular wall thickness. Left ventricular systolic function is normal without focal wall motion abnormalities. The ejection fraction is estimated to be 60-65%. Diastolic function could not be accurately assessed due to contradictory data. Right Ventricle: The right ventricle is normal in size and function. Atria: The left atrium is mildly dilated. Right atrial size is normal. The interatrial septum is intact with no evidence for an atrial septal defect. Mitral Valve: The mitral valve leaflets are mildly calcified. There is moderate mitral regurgitation. Aortic Valve: The aortic valve is trileaflet. The aortic valve is mildly calcified. There is minimally reduced leaflet mobility. The calculated aortic valve area is 1.8 cm2. There is no hemodynamically significant valvular aortic stenosis. There is mild aortic regurgitation. Tricuspid Valve: The tricuspid valve is normal in structure and function. There is trace tricuspid regurgitation. Pulmonic Valve: The pulmonic valve is normal in structure and function. There is trace pulmonic regurgitation. There is no other significant valvular heart disease. Great Vessels: The aortic root is normal size. The dimensions of the ascending aorta are normal. The pulmonary artery is normal size. The IVC is of normal diameter and collapses greater than 50% with a sniff. This suggests a low right atrial pressure of 3 mm Hg. Pericardium/ Pleura There is no pericardial effusion. There is no pleural effusion. MMode/2D Measurements & Calculations LVIDd: 4.3 cm LVOT diam: 2.0 cm LVIDs: 2.6 cm Ao root diam: 2.5 cm FS: 38.9 % asc Aorta Diam: 3.2 cm EPSS: 0.44 cm Ao Arch Diam (Prox Trans): 2.9 cm IVSd: 0.83 cm LVPWd: 1.0 cm LV martinez. diameter/BSA (cm/m^2): 2.3 LV sys. diameter/BSA (cm/m^2): 1.4 LA dimension: 3.7 cm RA long axis: 4.2 cm LA A2 area: 21.1 cm2 RA area: 14.0 cm2 LA A4 area: 20.2 cm2 RA vol: 39.9 ml LA length (vol): 5.5 cm RA : 22.0 ml/m2 LA vol: 65.1 ml IVC diam: 1.9 cm LA vol index: 35.8 ml/m2 Doppler Measurements & Calculations Ao V2 max: 203.1 cm/sec LVOT Max Rainer: 120.5 cm/sec Ao V2 mean: 150.9 cm/sec LV V1 max P.8 mmHg Ao max P.5 mmHg LV V1 VTI: 29.7 cm Ao mean P.6 mmHg SVETLANA(I,D): 2.0 cm2 Ao V2 VTI: 46.0 cm SVETLANA(V,D): 1.8 cm2 sev ratio: 0.65 SVETLANA indexed to BSA (cm^2/m^2): 1.1 AI P1/2t: 541.8 msec AI dec slope: 234.4 cm/sec2 MV E max rainer: 98.9 cm/sec TR max rainer: 242.8 cm/sec MV A max rainer: 113.8 cm/sec TR max P.6 mmHg MV E/A: 0.87 PA V2 max: 95.3 cm/sec Med Peak E' Rainer: 4.6 cm/sec PA V2 mean: 70.1 cm/sec E/E' med: 21.3 PA mean P.1 mmHg Lat Peak E' Rainer: 7.0 cm/sec PA pr(Accel): 46.6 mmHg E/E' lat: 14.1 PA Accel Time: 0.07 sec E/e' average: 17.7 MV dec time: 0.12 sec SV(LVOT): 92.6 ml Reading Physician:07:36 PM
== END ==
PROVIDERS: Family Provider Internal Medicine; PCP Internal Medicine; Visit Provider Internal Medicine
DX: G45.9 Transient cerebral ischemic attack, unspecified (principal); R01.1 Cardiac murmur, unspecified; I08.0 Rheumatic disorders of both mitral and aortic valves; I10 Essential (primary) hypertension
CPT/HCPCS: 93306

== ENCOUNTER → 2019-02-20 07:37 | Outpatient (CLI) | payer MEDICARE, SELFPAY ==
--- NOTE | 2019-02-20 07:39 | DI.US.S_ITS ---
PROCEDURE: US CAROTID DOPPLER BI INDICATIONS: TRANSIENT ISCHEMIC ATTACK TECHNIQUE: Color and pulse Doppler interrogation was performed of both carotid systems, with image documentation and velocity measurements. COMPARISON: None. FINDINGS: Stenosis calculations are based on SRU (Society of Radiologists in Ultrasound) criteria. Right side: Brachial blood pressure: 159/89 mm Hg. Common carotid artery peak systolic velocity: 105 cm/sec. Internal carotid artery peak systolic velocity: 127 cm/sec. Internal carotid artery end diastolic velocity: 38 cm/sec. External carotid artery peak systolic velocity: 61 cm/sec. ICA/CCA peak systolic ratio: 1.2. Schwarz scale imaging description: There is atherosclerosis involving the imaged portions of the distal common carotid artery and internal carotid artery with less than 50% narrowing of the lumen. Percent internal carotid artery stenosis: 50-60% stenosis. Vertebral artery: Flow direction is antegrade. Left side: Brachial blood pressure: Unable to measure secondary to surgical changes in the area the left arm. Common carotid artery peak systolic velocity: 98 cm/sec. Internal carotid artery peak systolic velocity: 105 cm/sec. Internal carotid artery end diastolic velocity: 21 cm/sec. External carotid artery peak systolic velocity: 75 cm/sec. ICA/CCA peak systolic ratio: 1.1. Schwarz scale imaging description: There are atherosclerotic calcifications of the imaged portions of the common carotid artery and internal carotid artery with less than 50% narrowing of the lumen. Percent internal carotid artery stenosis: Less than 50% stenosis.. Vertebral artery: Flow direction is antegrade. 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 Dictated by: Max Mkcenzie M.D. on 02/20/2019 at 11:58 Approved by: Max Mckenzie M.D. on 02/20/2019 at 12:08
--- NOTE | 2019-02-20 07:39 | DI.MRI.S_ITS ---
PROCEDURE: MR STROKE Pre- and post-contrast brain MRI, non-contrast brain MR angiogram, pre- and postcontrast neck MR angiogram INDICATIONS: tia TECHNIQUE: Brain: Noncontrast axial T1 spin echo, axial T2 fast spin echo, sagittal and axial FLAIR, coronal T2 fast spin echo, axial gradient echo, axial diffusion and ADC through the brain. After the administration of contrast, axial 3D VIBE of the cranial vasculature and brain. Brain MRA: Non-contrast 3-D time of flight MR angiogram, with multiple zsknwad-crfgiyafh-koplomzfqv (MIP) reformats performed. Neck MRA: Axial and sagittal TruFISP through the neck. Coronal dynamic MR angiogram during administration of contrast in the arterial and venous phases, with 3-dimenstional lklzvzm-zzfjtflcc-wefiptscmk (MIP) reformats constructed from subtraction images. COMPARISON: None. FINDINGS: Image quality: Excellent. BRAIN: CSF spaces: Ventricles are normal in size and shape. Basal cisterns are patent. No extra-axial fluid collections. Brain: No intracranial bleeds or mass effects. Mild diffuse cerebral volume loss. Mild degree of patchy high FLAIR signal within the periventricular and subcortical white matter. Schwarz-white matter interface is normal. Diffusion weighted images show no acute ischemic insults. Brainstem appears normal. Normal intravascular flow voids are present. No abnormal intracranial enhancement. Skull and face: Calvarial marrow signal is normal. Orbits appear normal. Sinuses: Sinuses and mastoids are clear. BRAIN MR ANGIOGRAM: Anterior circulation: There are artifactual weblike stenoses within the bilateral high cervical internal carotid arteries which appear normally on the accompanying cervical MR angiography examination. Intracranial internal carotid arteries are otherwise normal in size and enhancement. The flow within the paired anterior cerebral arteries is normal and symmetric. The flow within the middle cerebral arteries is normal and symmetric. The anterior communicating artery is seen. No stenoses, occlusions, or aneurysms. Posterior circulation: The visualized portions of the vertebral arteries demonstrate normal caliber, and join to form a normal appearing basilar artery. The flow within the posterior cerebral arteries is normal and symmetric. No stenoses, occlusions, or aneurysms. NECK MR ANGIOGRAM: Carotids: Great vessels demonstrate a conventional anatomy as they arise from the aortic arch. The origins of the common carotid arteries appear patent. The calibers and courses of both common carotid arteries are normal. The bifurcation regions appear normal bilaterally. The internal carotid arteries demonstrate normal course and caliber. Posterior circulation: The origins of the vertebral arteries appear patent. More superior portions of both vertebral arteries demonstrate normal course and caliber, and join to form a normal appearing basilar artery. Miscellaneous: Subclavian arteries appear patent. Pre-contrast images through the neck show no soft tissue abnormalities. IMPRESSION: BRAIN MRI: 1. No acute intracanal abnormality. No recent infarct. 2. Mild volume loss and small vessel ischemic disease. BRAIN MR ANGIOGRAM: Negative cerebral MR angiography. NECK MR ANGIOGRAM: 1. No internal carotid artery stenosis bilaterally. 2. Patent bilateral vertebral arteries. Dictated by: Britney Angulo M.D. on 02/20/2019 at 9:31 Approved by: Britney Angulo M.D. on 02/20/2019 at 9:47
== END ==
PROVIDERS: Family Provider Internal Medicine; PCP Internal Medicine; Visit Provider Internal Medicine
DX: I65.23 Occlusion and stenosis of bilateral carotid arteries (principal)
CPT/HCPCS: 70548; 70553; 93880

== ENCOUNTER → 2019-06-10 16:10 | Outpatient (CLI) | payer MEDICARE, SELFPAY ==
[2019-06-10 16:43] LABS: Add Manual Diff / Slide Review NO; Basophils Absolute Auto 100 /uL (0-100); Basophils Percent Auto 0.9 % (0-2); Eosinophils Absolute Auto 500 /uL (0-450); Hematocrit 43.9 % (36-46); Hemoglobin 14.7 g/dL (12.0-16.0); Lymphocytes Absolute Auto 2100 /uL (1100-4500); Lymphocytes Percent Auto 21.1 % (25-40); Mean Corpuscular HGB Conc 33.4 % (30-36); Mean Corpuscular Hemoglobin 27.1 PG (26-34); Mean Corpuscular Volume 81.3 fL (80-100); Monocytes Absolute Auto 800 /uL (0-900); Monocytes Percent Auto 8.3 % (3-14); Neutrophils Absolute Auto 6500 /uL (1500-7000); Neutrophils Percent Auto 64.7 % (50-75); Platelet Count 205 X10^3/uL (150-400)
[2019-06-10 16:57] LABS: Carbon Dioxide 27 mmol/L (22-32); Chloride 102 mmol/L (98-107); HEMOLYSIS < 15 (0-50); Potassium 4.1 mmol/L (3.4-5.1); Sodium 140 mmol/L (137-145)
== END ==
PROVIDERS: PCP Internal Medicine; Visit Provider Orthopaedic Surgery
DX: Z01.812 Encounter for preprocedural laboratory examination (principal); Z01.818 Encounter for other preprocedural examination
CPT/HCPCS: 36415; 80051; 85025; 93005

== ENCOUNTER 2019-07-03 07:44 | Day surgery (SDC) | payer MEDICARE, SELFPAY ==
[2019-06-27 09:59] VITALS: BMI 26.6
[2019-07-03] VITALS (18 sets, daily range): BP systolic 124–228; BP diastolic 61–129; PULSE 74–105; RESP 8–18; TEMP 36.4–37; O2SAT 91–100; BMI 26.6
--- NOTE | 2019-07-03 06:00 | DI.RAD.S_ITS ---
PROCEDURE: XR KNEE RT 1TO2V INDICATIONS: post op TKA TECHNIQUE: 2 views of the knee were acquired. COMPARISON: [facility] Outside Film, RG, KNEE 3VW (RT), 03/26/2019, 9:03. FINDINGS: Expected interval postsurgical changes are present related to a total knee arthroplasty. The metallic prosthetic components are intact without a periprosthetic fracture evident. There is a soft tissue air and edema are present within the overlying soft tissues about the knee. No unexpected radiopaque foreign bodies are appreciated. IMPRESSION: Expected interval postoperative changes related to a total right knee arthroplasty. Dictated by: Jace Mo M.D. on 07/03/2019 at 10:05 Approved by: Jace Mo M.D. on 07/03/2019 at 10:06
[2019-07-03] MEDS: CELECOXIB 200 MG CAPSULE PO (08:16)
[2019-07-03] MEDS: PREGABALIN 75 MG CAPSULE PO (08:17)
[2019-07-03] MEDS: ACETAMINOPHEN 325 MG TABLET 975 MG PO (08:17)
[2019-07-03] MEDS: LACTATED RINGERS 1,000 ML 42 ML IV (08:27)
--- NOTE | 2019-07-03 08:42 | PM.PREOP ---
Pre-operative Note Interval Note History & Physical reviewed/Exam performed by Physician: Yes Changes to H&P: No
--- NOTE | 2019-07-03 08:43 | P.OP_ITS ---
Operative Date/Time/Diagnoses Date of procedure: 07/03/19 Time of procedure: 10:50 Pre-op diagnosis: Right knee osteoarthritis Post-op diagnosis: same Procedure & Clinicians Procedure: Right total knee arthroplasty Same procedure as scheduled: Yes Indications: The patient presents today for total knee arthroplasty after failure of conservative treatment. The nature of the procedure including the risks and benefits, alternatives, postoperative course and expected outcome were discussed and all questions answered. Consent was obtained. Operative site confirmed and marked. Surgeon: Domenic Jones Software Publisher: Alex Flores Anesthesia Type: General and Local Operative Notes Findings: The patient had relatively full range of motion prior to surgery with a moderate varus deformity. Standard cuts were made. The bone was fairly soft overall. The knee was tight medially which was corrected with routine medial soft tissue releases as well as percutaneous release of the MCL with an 18 gauge needle. This nicely balance the knee with just slight increased laxity laterally compared to medially. Patella tracks centrally. The knee easily went into full extension with flexion beyond 130?. Closure Type: primary Specimen(s): none sent Prosthetic devices, grafts, tissues, transplants, or devices: [employer] BCS: 5 femoral component, 4 tibial component, 9 mm BCS polyethylene tray and 29 x 7.5 mm round patella Applied: implant(s) Estimated Blood Loss (mL): 10 Blood products transfused: none Tourniquet time (min): 57 Procedure in detail: The patient was taken to the operative suite and placed under general anesthesia. The patient was given prophylactic antibiotics prior to surgery. The patient was also given tranexamic acid, 1 g, just prior to surgery for postoperative hemostasis. The lateral knee was prepped and the joint injected with 20 mL of 1% Lidocaine with epinephrine. The knee was then prepped and draped in usual sterile fashion. The leg was exsanguinated with an Esmarch dressing and the tourniquet raised to 250 torr. A 15 cm anterior incision was made. Next a medial trivector arthrotomy was made. The extensor mechanism was marked to ensure accurate repair. Initial exposing dissection was carried out medially and laterally. The knee was then flexed and the intramedullary femoral guide brandon placed. The distal femoral cut was made in 6? of valgus at the +0 position. The femoral size was measured and the appropriate cutting block was then placed and the anterior, posterior and chamfer cuts made. The intramedullary tibial alignment brandon was then placed. The guide was set to remove approximately 10 mm from the less affected lateral side. The proximal tibial cut was then made with an oscillating saw. All meniscus and bony debris was then removed. Posterior femoral osteophytes removed with a curved osteotome. Flexion extension gaps were checked. The knee was tight medially especially in extension. This was corrected with routine soft tissue releases as well as some percutaneous release of the MCL with an 18 gauge needle. The soft tissues were then injected with a combination of 20 mL of half percent Marcaine with epinephrine and 20 mL of Exparel. The trial components were then placed. The knee was then extended and the patellar thickness was measured and a cut made removing approximately 7-8 mm of bone. The patella was then sized and drilled. Some excess lateral bone was excised and the patellofemoral ligament released. The knee went into full extension and flexion beyond 130?. There was excellent medial-lateral balance throughout motion. Patellar tracking was excellent. The trial components were removed and the knee was cleansed with Pulsavac irrigation and dried. The final components were cemented with high viscosity vacuum mixed bone cement with antibiotics. The joint was filled with a dilute Betadine solution. The knee was held in extension and the patellar clamped until the cement was adequately cured. The knee was then irrigated. The extensor mechanism was closed with 5 interrupted #1 Vicryl sutures and a running Quill suture at approximately 90 degrees of flexion. The joint was then injected with a combination of 1 g of tranexamic acid and 20 mL of quarter percent Marcaine with epinephrine. The subcutaneous tissue was closed with 2 0 Vicryl. The skin was closed with a subcuticular suture and surgical adhesive. An Aquacel dressing and Dannie wrap were then applied. The patient tolerated the procedure well and was returned to recovery room in good condition. Complications: none Post-operative Condition: stable Disposition: PACU Plan for aftercare: [facility] protocol for total knee arthroplasty.
[2019-07-03] MEDS: CEFAZOLIN 2 GM/100 ML FROZ.PIGGY IV ×2 (08:45→16:30)
[2019-07-03] MEDS: LIDOCAINE 1% W/EPI 20 ML INJ (09:00)
[2019-07-03] MEDS: TRANEXAMIC ACID 1,000 MG VIAL 1000 MG INJ (09:10)
--- NOTE | 2019-07-03 09:19 | SUR.OPER ---
Supine on padded OR bed. Pillow under head, arms secured on padded armboards <90 degree abduction. Safety belt across torso. Non-operative leg secured with tape over blanket over lower leg. Operative leg secured in DeMayo/Vance positioner. Foam padded brace at thigh of operative leg.
[2019-07-03] MEDS: BUPIVACAINE 0.25% W/ EPI (PF) 40 ML, BUPIVACAINE LIPOSOME 266 MG, SODIUM CHLORIDE 0.9% ... INJ (09:23)
[2019-07-03] MEDS: BUPIVACAINE 0.25% W/ EPI (PF) 20 ML, TRANEXAMIC ACID 1,000 MG, SODIUM CHLORIDE 0.9% 10 ML INJ (09:23)
[2019-07-03] MEDS: ONDANSETRON 4 MG/2 ML INJ IV (11:58)
[2019-07-03] MEDS: lisinopriL 10 MG TABLET PO (11:58)
[2019-07-03] MEDS: LACTATED RINGERS 1,000 ML 125 ML IV ×2 (11:58→20:24)
--- NOTE | 2019-07-03 13:49 | PC.NURSE ---
Pt to floor at 1200 from PACU; moderate nausea; IV Zofran administered; 100 mL emesis, following lisinopril administration; @ 1315 BP 228/129; this RN at lunch; Nurse Coordinator, Roxie spoke with MD and IV Labetol ordered c/m/s to RLE positive; LS clear, O2 RA=95%; pt denies pain; SCD to LLE active; pt instructed to use IS with 1200 output; pt instructed regarding fall prevention; call light within reach; daughter in room
[2019-07-03] MEDS: LABETALOL 20 MG/4 ML SYRINGE 10 MG IV (14:04)
[2019-07-03] MEDS: SIMVASTATIN 20 MG TABLET PO (15:02)
[2019-07-03] MEDS: ACETAMINOPHEN 325 MG TABLET 650 MG PO ×2 (15:03→21:37)
--- NOTE | 2019-07-03 15:35 | PT.IIE ---
Current Diagnoses Unilateral primary osteoarthritis, right knee (07/03/19) Surgery Performed Operation Date: 07/03/19 08:45 Actual Procedures p Total Knee Arthroplasty(Right) - Domenic Jones MD Surgical History (Last Updated 06/27/19 @ 10:26 by Jazmin Cabral RN) History of colonoscopy (Acute) History of lumpectomy of both breasts (Acute) Hx of bilateral cataract extraction (Acute ~10/2018) Hx of tonsillectomy (Acute) Status post appendectomy (~1958) Status post laparoscopic cholecystectomy (04/07/16) Medical History (Last Updated 06/27/19 @ 10:11 by Jazmin Cabral RN) Bilateral breast cancer (Acute) Cardiac murmur (Chronic) Carotid bruit (Chronic) Cholelithiasis (Chronic ~01/2016) Difficulty swallowing (Acute) Elevated liver enzymes (Acute ~2017) Essential hypertension (Chronic 08/31/11) Gastroesophageal reflux disease (Chronic 02/07/14) History of malignant neoplasm of breast (Inactive 08/31/11) Hyperlipidemia (Chronic 08/31/11) Hypertension (Chronic) Pancreatitis (Chronic) Physical Therapy Inpatient Evaluation/Re-Eval M1 PT/OT-IP Prior Functional Status Start: 07/03/19 17:38 Freq: NEEDED Status: Active Protocol: Document 07/03/19 15:35 AB (Rec: 07/03/19 17:55 AB [id number]) Medical Review Prior Functional Status Medical History Reviewed Yes Communication able to make needs known Mobility and Gait pt stated that she is independent with all mobilities and ambulation without AD Social History Household Members none Living Arrangements House Number of Floors (Floors) One Floor Number of Stairs To Enter/Railing? 2 steps to enter with R rail ascending Home Environment Standard Height Toilet,Walk in Shower Home Equipment Front Wheel Walker,Raised Toilet Seat w/Armrests,Hand Held Shower,Grab Bars In Shower Additional Social History Comment pt's daughter will stay with her for 2 weeks to assist her pt also has a hurrycane M2 PT-IP Current Condition Start: 07/03/19 17:38 Freq: NEEDED Status: Active Protocol: Document 07/03/19 15:35 AB (Rec: 07/03/19 17:55 AB [id number]) Physical Therapy Current Condition Current Condition Evaluation Date 07/03/19 Treatment Diagnosis s/p R TKA; difficulty in walking Onset Date 07/03/2019 Weight Bearing Status Weight Bearing Status Weight Bear as Tolerated Allowed Weight Bearing Amount (enter % RLE WBAT or #) (%) M3 PT-IP Subjective Start: 07/03/19 17:38 Freq: NEEDED Status: Active Protocol: Document 07/03/19 15:35 AB (Rec: 07/03/19 17:55 AB [id number]) Subjective Physical Therapy Visit Type Type Initial Evaluation Visit Start Time 15:35 Visit Stop Time 16:01 Total Visit Minutes 26 Number of MARKETING LEAD Visits 0 Physical Therapy Visit Comments Patient Comments pt agreeable to do PT Therapy Pain Assessment Pain When Pain Assessed At Rest Pain Present Pain Present Pain Reported Location right knee Intensity 2 Scale Used Numeric (1 - 10) Pain Management Techniques Apply Cold,Re-positioning, Timing of Activity with Medications M4 PT-IP Mobility and Gait Start: 07/03/19 17:38 Freq: NEEDED Status: Active Protocol: Document 07/03/19 15:35 AB (Rec: 07/03/19 17:55 AB [id number]) PT-Bed Mobility Assessment Supine to Sit Supine to Sit Standby Assistance PT-Transfer Assessment Sit to and From Stand Sit to and from Stand Minimal Assistance,1 Person Assistance,Use of Upper Extremities Equipment Transfer Assistive Device Gait Belt,Front Wheeled Walker Orthotic/Prosthetic Devices or Brace: No Transfers Transfer Destination Toilet Transfer Technique ambulated using FWW Transfer Ability Level of Assist Minimal Assistance,1 Person Assistance,Use of Upper Extremities Comments Mobility Comments BP: 135/70. pt completed supine to sit SBA, sit to stand min A and cues. requested to use the toilet and ambulation using FWw min A ~ 10 ft. cues for quad activation. c/o nausea. ambulated back to the chair after using the toilet. BP checked: 170/90. positioned pt on the chair. call light and table placed within reach. informed nurse regarding c/o nausea. Gait Assessment Gait Gait Assistance Required: Minimum Assistance Distance (Feet) 10 Able to Maintain Weight Bearing Status Yes During Gait Assistive Devices Assistive Device Gait Belt,Front Wheeled Walker Orthotic/Prosthetic Devices or Brace: No Gait Deviations General Gait Pattern Antalgic,Decreased Stride Length,Decreased Feet Clearance Factors Limiting Gait Function Factors Limiting Gait Function Decreased Activity Tolerance, Decreased Strength,Limited Range of Motion,Pain,Poor Balance Comments Gait Comments pls refer to mobility section for details PT-Balance Assessment Sitting Balance and Reactions Static Sitting Balance Ability Normal Dynamic Sitting Balance Ability Good Standing Balance and Reactions Static Standing Balance Ability Fair Dynamic Standing Balance Ability Fair Device Used FWW M5 PT-IP Objective Assessments Start: 07/03/19 17:38 Freq: NEEDED Status: Active Protocol: Document 07/03/19 15:35 AB (Rec: 07/03/19 17:55 AB [id number]) Orientation Orientation/Cognition Level of Alertness Alert Orientation Name,Place,Situation Memory Description No Deficits Noted Gross Range of Motion Lower Extremity ROM Assessment Right Impaired Impairments R knee flexion up to 70 deg R knee extension lacking ~ 20 deg to neutral Strength Lower Extremity Strength Assessment Right Impaired Hip 4-/5 Knee 3+/5 Coordination Assessment Gross Coordination Gross Coordination WNL Muscle Tone Muscle Tone WNL Yes M6 PT-IP Treatment Start: 07/03/19 17:38 Freq: NEEDED Status: Active Protocol: Document 07/03/19 15:35 AB (Rec: 07/03/19 17:55 AB [id number]) Physical Therapy Treatment Exercises Exercises Heel Slides Education Education Provided Precautions,Weight Bearing Status,Post-Op Packet,Safety M7 PT-IP Assessment and Plan Start: 07/03/19 17:38 Freq: NEEDED Status: Active Protocol: Document 07/03/19 15:35 AB (Rec: 07/03/19 17:55 AB [id number]) PT Summary Assessment and Plan Potential Rehabilitation Potential Good Status of Condition at Evaluation Stable Summary Impairments Pain,ROM,Strength,Balance, Coordination,Sensation,Tone, Cognition,Bed Mobility, Transfers,Gait,Activity Tolerance Assessment Summary pt requiring min A with mobility. pt just had surgery today and will likely improve during hospital stay. pt plans to go home and daughter will be assisting her. will conduct caregiver training when appropriate. pt also has steps to enter the house and stair training will be completed prior to d/c. pt stated that she is set up for outpt PT. Goals Bed Mobility Goal Independent Transfer Goal Independent,Front Wheeled Walker Gait Goal Independent,Front Wheel Walker Gait Distance 200 Other Goals up/down 2 steps R rail ascending SBA Days to Meet Goals 5 Frequency of Treatment Frequency Of Treatment Twice a Day Treatment Plan Physical Therapy Treatment Plan Bed Mobility Training,Transfer Training,Gait Training, Therapeutic Exercise,Balance Retraining,Post Op Education, Discharge Planning,Hot or Cold Pack,Neuromuscular Re-ed, Coordination Retraining,Manual Therapy Recommendations To Nursing Amount of Assist Needed 1 Person Assist Discharge Recommendations PT Discharge Recommendations Home with Assistance, Outpatient PT Transportation Needs at Discharge Private Vehicle
[2019-07-03] MEDS: IBUPROFEN 400 MG TABLET PO ×2 (16:30→21:39)
--- NOTE | 2019-07-03 16:56 | PC.NURSE ---
- Pt was in bed at beginning of shift, is currently up to chair by PT, 1PA FWW to BR to void 300mL yellow urine. A/O x4, thankful for staffs great care. Rt knee aquacell elenita wrap CDI with ice pack to knee, pillow under calves bilat. Pt reports little numbness to right outer aspect of foot and top of Rt great toe, feels pressure, but little numb. LS clear 96% RA, RAC LR @ 125, and ABO infusing. Pt has scar to forehead. Reports pain managed with ibu and tylenol. Daughter in room visiting. Call light in reach.
[2019-07-03] MEDS: ASPIRIN EC 81 MG TABLET PO (21:39)
[2019-07-03] MEDS: PANTOPRAZOLE 40 MG TABLET PO (21:40)
[2019-07-04 00:02] VITALS: BP 136/67; PULSE 87; RESP 16; TEMP 36.9; O2SAT 98
[2019-07-04] MEDS: IBUPROFEN 400 MG TABLET PO ×4 (01:07→13:43)
[2019-07-04] MEDS: CEFAZOLIN 2 GM/100 ML FROZ.PIGGY IV (01:07)
--- NOTE | 2019-07-04 05:36 | PC.NURSE ---
Patient with elevated BP of 171/67, asymptomatic, notifying on-call Dr Kalyn kimball ordered for patient's lisnopril to be given early and to monitor blood pressure.
[2019-07-04 05:41] VITALS: BP 171/67; PULSE 75; RESP 16; TEMP 36.6; O2SAT 98
[2019-07-04 05:44] VITALS: BP 171/67
[2019-07-04] MEDS: lisinopriL 10 MG TABLET PO (05:44)
[2019-07-04 05:58] LABS: Hemoglobin 12.6 g/dL (12.0-16.0)
--- NOTE | 2019-07-04 07:02 | PM.PN.1 ---
Subjective Subjective Date Patient Seen: 07/04/19 Time Patient Seen: 07:02 Interval history: Patient is POD# 1 s/p right TKA with Dr. Jones. Pain has been mild and well controlled. She has mobilized with PT about the room. Voiding appropriately. One episode of emesis, nausea has since resolved. No lightheadedness, dizziness, or headache. Exam Vital Signs (past 8 hours): - 07/04/19 00:02 07/04/19 05:41 07/04/19 05:44 Temperature 98.5 F 97.9 F Pulse Rate 87 75 Respiratory Rate 16 16 Blood Pressure 136/67 171/67 H 171/67 H Pulse Oximetry 98 98 Oxygen Delivery Method Room Air Oxygen Flow Rate 0 Narrative Exam Narrative: 78 year old female resting in bed. Alert and oriented in no acute distress. Dressing in place over right knee is CDI, small area of shadow drainage at distal dressing. Patient able to flex/extend the ankle. Palpable pedal pulse with soft calves. Objective Labs Result Diagrams: 07/04/19 05:25 Labs: Laboratory Results - last 24 hr 07/04/19 05:25 Hgb 12.6 Hct 38.0 Assessment & Plan Assessment & Plan narrative: Patient progressing well postoperatively. Continue present pain control. Continue to work with PT. Would benefit from completing afternoon session of PT as well as stair training prior to discharge. Several episodes of hypertension, continue Lisinopril. If this continues as is will have her increase to BID and follow with her PCP within 1 week. Discharge this afternoon after completing PT. Quality VTE Deep Vein Thrombosis/Pulmonary Embolism Present on Admission: No
[2019-07-04 08:35] VITALS: BP 145/64; PULSE 80; RESP 16; TEMP 36.6; O2SAT 99
[2019-07-04] MEDS: ASPIRIN EC 81 MG TABLET PO (08:54)
[2019-07-04] MEDS: DOCUSATE 100 MG CAPSULE PO (08:55)
[2019-07-04] MEDS: ACETAMINOPHEN 325 MG TABLET 650 MG PO ×2 (08:56→13:42)
[2019-07-04] MEDS: SIMVASTATIN 20 MG TABLET PO (09:17)
--- NOTE | 2019-07-04 09:44 | PT.IPTN ---
Current Diagnoses Unilateral primary osteoarthritis, right knee (07/03/19) Surgery Performed Operation Date: 07/03/19 08:45 Actual Procedures p Total Knee Arthroplasty(Right) - Domenic Jones MD Physical Therapy Treatment Note M2 PT-IP Current Condition Start: 07/03/19 17:38 Freq: NEEDED Status: Active Protocol: Document 07/03/19 15:35 AB (Rec: 07/03/19 17:55 AB [id number]) Physical Therapy Current Condition Current Condition Evaluation Date 07/03/19 Treatment Diagnosis s/p R TKA; difficulty in walking Onset Date 07/03/2019 Weight Bearing Status Weight Bearing Status Weight Bear as Tolerated Allowed Weight Bearing Amount (enter % RLE WBAT or #) (%) M3 PT-IP Subjective Start: 07/03/19 17:38 Freq: NEEDED Status: Active Protocol: Document 07/04/19 09:18 KS (Rec: 07/04/19 10:05 KS [id number]) Subjective Physical Therapy Visit Type Type Treatment Note Visit Start Time 09:18 Visit Stop Time 09:44 Total Visit Minutes 26 Notes Pt daughter was present when returning to room, pt and daughter will benefit from caregiver training for ambulation and stairs this afternoon. 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 Visits 1 Physical Therapy Visit Comments Patient Comments pt agreeable to do PT Therapy Pain Assessment Pain When Pain Assessed During Mobility Pain Present Pain Present Pain Reported Location right knee Intensity 3 Scale Used Numeric (1 - 10) Pain Management Techniques Apply Cold,Re-positioning, Timing of Activity with Medications M4 PT-IP Mobility and Gait Start: 07/03/19 17:38 Freq: NEEDED Status: Active Protocol: Document 07/04/19 09:18 KS (Rec: 07/04/19 10:05 KS [id number]) PT-Bed Mobility Assessment Supine to Sit Supine to Sit Standby Assistance PT-Transfer Assessment Sit to and From Stand Sit to and from Stand Standby Assistance,1 Person Assistance,Use of Upper Extremities Equipment Transfer Assistive Device Gait Belt,Front Wheeled Walker Orthotic/Prosthetic Devices or Brace: No Transfers Transfer Destination Bed Transfer Technique ambulated using FWW Transfer Ability Level of Assist Standby Assistance Comments Mobility Comments Pt was sitting in bed w/ HOB elevated upon arrival from therapy. Pt recalled and performed 1x5 post-op LE exercises including SLR, ankle pumps, and quad sets. Instructed pt on heel slides. SBA for sup<>sit w/ HOB elevated, scooting EOB, and sit<.stand w/ FWW w/ cues to push up from bed. Pt then ambulated w/ FWW and completed stair training and then returned to bed. SBA and Min cues for reaching back for bed when sitting and SBA for sit< >sup. Pt left in bed w/ all needs in reach and daugther in room. Gait Assessment Gait Gait Assistance Required: Standby Assistance,Contact Guard Assist,1 Person Assist Distance (Feet) 200 Able to Maintain Weight Bearing Status Yes During Gait Assistive Devices Assistive Device Gait Belt,Front Wheeled Walker Orthotic/Prosthetic Devices or Brace: No Gait Deviations General Gait Pattern Antalgic,Decreased Stride Length,Decreased Feet Clearance Factors Limiting Gait Function Factors Limiting Gait Function Decreased Activity Tolerance, Decreased Strength,Limited Range of Motion,Pain,Poor Balance Comments Gait Comments Pt ambulated ~200ft w/ FWW and CGA on the way to stairs and SBA on the way back from stairs. Pts initial gait is step-to pattern and she had some trouble staying inside of FWW. With cues, pt is able to perform step-thru gait and remain inside of FWW and states she feels more comfortable doing so. Pt still has gait deviations due to pain and lack of ROM. Stair Climbing Assessment Evaluation Level of Assist On Stairs Contact Guard Assistance,1 Person Assistance Devices Stair Climbing Assistive Devices Left Railing,Right Railing Technique/Endurance Stair Climbing Direction Ascend and Descend Stair Climbing Technique Step to Step Number of Steps Climbed 3 Stair Climbing Set # Repetitions (reps) 1 Comments Stair Climbing Comments Pt was instructed on how to ascend stairs w/ unoperative leg, and descend w/ operative first. Pt used B hand rails for support, but only has R side at home. Step to step technique, pt remained stable and had good safety awareness. After finishing stairs, pt stated she really wants to be able to perform stairs later today w/ daughter for caregiver training so she feels more comfortable at home . PT-Balance Assessment Sitting Balance and Reactions Static Sitting Balance Ability Normal Dynamic Sitting Balance Ability Good Standing Balance and Reactions Static Standing Balance Ability Fair Dynamic Standing Balance Ability Fair Device Used FWW M5 PT-IP Objective Assessments Start: 07/03/19 17:38 Freq: NEEDED Status: Active Protocol: Document 07/03/19 15:35 AB (Rec: 07/03/19 17:55 AB [id number]) Orientation Orientation/Cognition Level of Alertness Alert Orientation Name,Place,Situation Memory Description No Deficits Noted Gross Range of Motion Lower Extremity ROM Assessment Right Impaired Impairments R knee flexion up to 70 deg R knee extension lacking ~ 20 deg to neutral Strength Lower Extremity Strength Assessment Right Impaired Hip 4-/5 Knee 3+/5 Coordination Assessment Gross Coordination Gross Coordination WNL Muscle Tone Muscle Tone WNL Yes M6 PT-IP Treatment Start: 07/03/19 17:38 Freq: NEEDED Status: Active Protocol: Document 07/04/19 09:18 KS (Rec: 07/04/19 10:05 KS [id number]) Physical Therapy Treatment Exercises Exercises Ankle Pumps,Quad Sets,Heel Slides,Straight Leg Raises Education Education Provided Precautions,Weight Bearing Status,Post-Op Packet,Safety Other Treatments Other Treatment Performed Instructed daughter how to don gait belt on pt. M7 PT-IP Assessment and Plan Start: 07/03/19 17:38 Freq: NEEDED Status: Active Protocol: Document 07/04/19 09:18 KS (Rec: 07/04/19 10:05 KS [id number]) PT Summary Assessment and Plan Potential Rehabilitation Potential Good Status of Condition at Evaluation Stable Summary Impairments Pain,ROM,Strength,Balance, Coordination,Sensation,Tone, Cognition,Bed Mobility, Transfers,Gait,Activity Tolerance Assessment Summary Pt is SBA for bed mobility, SBA to CGA for ambulation and CGA for stair training. Pt was able to improve gait with cues for quad activation, staying inside FWW, and step thru gait pattern. Pt ambulated ~200 ft and then compelted 3 steps w/ step to gait pattern and B hand rails. Pt will benefit from and feel more comfortable to go home after receving caregiver training this afternoon. Goals Bed Mobility Goal Independent Transfer Goal Independent,Front Wheeled Walker Gait Goal Independent,Front Wheel Walker Gait Distance 200 Other Goals up/down 2 steps R rail ascending SBA Days to Meet Goals 5 Frequency of Treatment Frequency Of Treatment Twice a Day Treatment Plan Physical Therapy Treatment Plan Bed Mobility Training,Transfer Training,Gait Training, Therapeutic Exercise,Balance Retraining,Post Op Education, Discharge Planning,Hot or Cold Pack,Neuromuscular Re-ed, Coordination Retraining,Manual Therapy Recommendations To Nursing Amount of Assist Needed 1 Person Assist Discharge Recommendations PT Discharge Recommendations Home with Assistance, Outpatient PT Transportation Needs at Discharge Private Vehicle
--- NOTE | 2019-07-04 11:41 | CM.IDA ---
Discharge Planning/Care Management CM Discharge Assessment Start: 07/04/19 11:37 Freq: Status: Active Protocol: Document 07/04/19 11:37 JOCY (Rec: 07/04/19 11:41 JOCY [id number]) Discharge Planning Assessment Assigned Ems Director TAYLOR Mauro DPOA/Assigned Designee Name Bozena (daughter) Contact Information [phone] Advance Directives? Yes Advance Directives on File Yes History Provided By Patient,Medical Record Prior Living Arrangements House Household Members none Type of transporation used prior to Drives own vehicle admit Independent with ADL's Yes Is patient alert and oriented? Yes Patient/Family Preference OP PT Therapy Barriers to Discharge No Comment Pt is POD#1 from rt knee surgery w/ Dr Jones. PCP: Andrew Gonzalez Payer: K[employer]/ LAURA Reviewed chart. therapy team has cleared pt for return home today, after stair training and cg training this afternoon w/pt's dtr. Pt is eager to return home and feels confident about plan to return home w/her dtr to assist. No barriers identified to safe return home upon DC. Following in case any DC needs or concerns arise. TAYLOR Ortiz Discharge Plan Home Transportation Arrangement Family Referrals Initiated None needed Review Status In Process
[2019-07-04 12:40] VITALS: BP 148/67; PULSE 76; RESP 16; TEMP 36.6; O2SAT 100
--- NOTE | 2019-07-04 14:02 | PT.IPTN ---
Current Diagnoses Unilateral primary osteoarthritis, right knee (07/03/19) Surgery Performed Operation Date: 07/03/19 08:45 Actual Procedures p Total Knee Arthroplasty(Right) - Domenic Jones MD Physical Therapy Treatment Note M2 PT-IP Current Condition Start: 07/03/19 17:38 Freq: NEEDED Status: Discharge Protocol: Document 07/03/19 15:35 AB (Rec: 07/03/19 17:55 AB [id number]) Physical Therapy Current Condition Current Condition Evaluation Date 07/03/19 Treatment Diagnosis s/p R TKA; difficulty in walking Onset Date 07/03/2019 Weight Bearing Status Weight Bearing Status Weight Bear as Tolerated Allowed Weight Bearing Amount (enter % RLE WBAT or #) (%) M3 PT-IP Subjective Start: 07/03/19 17:38 Freq: NEEDED Status: Discharge Protocol: Document 07/04/19 13:40 SP (Rec: 07/04/19 14:48 SP [email or web address]) Subjective Physical Therapy Visit Type Type Treatment Note Visit Start Time 13:10 Visit Stop Time 14:02 Total Visit Minutes 22 Notes Pt daughter present for caregiver training, Number of AIR AND [employer]DRONIC BALANCING TECHNICIAN Visits 2 Physical Therapy Visit Comments Patient Comments Pt agreeable to PT. Therapy Pain Assessment Pain When Pain Assessed During Mobility Pain Present Pain Present Pain Reported Location right knee Intensity 2 Scale Used Numeric (1 - 10) Pain Management Techniques Re-positioning,Timing of Activity with Medications M4 PT-IP Mobility and Gait Start: 07/03/19 17:38 Freq: NEEDED Status: Discharge Protocol: Document 07/04/19 13:10 SP (Rec: 07/04/19 14:48 SP [id number]) PT-Bed Mobility Assessment Supine to Sit Supine to Sit Independent PT-Transfer Assessment Sit to and From Stand Sit to and from Stand Standby Assistance,Use of Upper Extremities Equipment Transfer Assistive Device Gait Belt,Front Wheeled Walker Transfers Transfer Technique ambulated using FWW Transfer Ability Level of Assist Standby Assistance,Use of Upper Extremities Comments Mobility Comments Pt was laying in bed with nursing and daughter in room when arrived receiving tylenol pre PT to assist paincontrol. Patient and daughter completed caregiver training including gait belt donning, bed mob, transfers and gait using FWW, stair mgt RHR and SPC LUE. Pt was able to complete supine>sitting HOB flat Mod I with ability to move her RLE itself. sit <> stand SBA with use of FWW and walked to stairs and back to the chair with safety hand placement demonstration. Pt was sitting in chair when left with call light and all needs in reach, daughter in room. Gait Assessment Gait Gait Assistance Required: Standby Assistance,Contact Guard Assist,1 Person Assist Distance (Feet) 220 Able to Maintain Weight Bearing Status Yes During Gait Assistive Devices Assistive Device Gait Belt,Front Wheeled Walker Orthotic/Prosthetic Devices or Brace: No Gait Deviations General Gait Pattern Antalgic Factors Limiting Gait Function Factors Limiting Gait Function Decreased Activity Tolerance, Decreased Strength,Limited Range of Motion,Pain Comments Gait Comments Pt was ableto ambulate from R side of bed to stairs and back to her room chair using FWW SBA provided by daughter. Therapist cued awareness of R knee flexion and heel toe and step over step toward normal gait, with improvement demonstrated. Stair Climbing Assessment Evaluation Level of Assist On Stairs Contact Guard Assistance Devices Stair Climbing Assistive Devices Straight Cane,Right Railing Technique/Endurance Stair Climbing Direction Ascend and Descend Stair Climbing Technique Step to Step Number of Steps Climbed 3 Stair Climbing Set # Repetitions (reps) 1 Comments Stair Climbing Comments Pt was ableto complete 3 stairs usign RHR and SPC in LUE step to patterning with daughter provided CGA, stable to assimulate home front enterance but stated doesn't need to enter usign stairs, has a ramp in garage to door but good to try. PT-Balance Assessment Sitting Balance and Reactions Static Sitting Balance Ability Normal Dynamic Sitting Balance Ability Good Standing Balance and Reactions Static Standing Balance Ability Good Dynamic Standing Balance Ability Fair Device Used FWW M5 PT-IP Objective Assessments Start: 07/03/19 17:38 Freq: NEEDED Status: Discharge Protocol: Document 07/03/19 15:35 AB (Rec: 07/03/19 17:55 AB [id number]) Orientation Orientation/Cognition Level of Alertness Alert Orientation Name,Place,Situation Memory Description No Deficits Noted Gross Range of Motion Lower Extremity ROM Assessment Right Impaired Impairments R knee flexion up to 70 deg R knee extension lacking ~ 20 deg to neutral Strength Lower Extremity Strength Assessment Right Impaired Hip 4-/5 Knee 3+/5 Coordination Assessment Gross Coordination Gross Coordination WNL Muscle Tone Muscle Tone WNL Yes M6 PT-IP Treatment Start: 07/03/19 17:38 Freq: NEEDED Status: Discharge Protocol: Document 07/04/19 13:10 SP (Rec: 07/04/19 14:48 SP [id number]) Physical Therapy Treatment Education Education Provided Precautions,Weight Bearing Status,Post-Op Packet,Safety Other Treatments Other Treatment Performed Discussed performance of post op HEP 3xdaily and walking around every hour to progress in ROM until appt with outpatient PT with verbal understanding. M7 PT-IP Assessment and Plan Start: 07/03/19 17:38 Freq: NEEDED Status: Discharge Protocol: Document 07/04/19 13:10 SP (Rec: 07/04/19 14:48 SP [id number]) PT Summary Assessment and Plan Potential Rehabilitation Potential Good Status of Condition at Evaluation Stable Summary Impairments Pain,ROM,Strength,Balance, Coordination,Sensation,Tone, Cognition,Bed Mobility, Transfers,Gait,Activity Tolerance Assessment Summary Pt is Mod I for bed mobility, SBA for ambulation and CGA for stair training. Pt was able to improve gait with cues for quad activation, staying inside FWW, knee flexion and step thru gait pattern. Pt ambulated ~220 ft and then compelted 3 steps w/ step to gait pattern and R HR and SPC in LUE. Pt is cleared by PT to go home with daughter to assist her and recommending outpatient PT. Goals Bed Mobility Goal Independent Transfer Goal Independent,Front Wheeled Walker Gait Goal Independent,Front Wheel Walker Gait Distance 200 Other Goals up/down 2 steps R rail ascending SBA Days to Meet Goals 5 Frequency of Treatment Frequency Of Treatment Twice a Day Treatment Plan Physical Therapy Treatment Plan Bed Mobility Training,Transfer Training,Gait Training, Therapeutic Exercise,Balance Retraining,Post Op Education, Discharge Planning,Hot or Cold Pack,Neuromuscular Re-ed, Coordination Retraining,Manual Therapy Recommendations To Nursing Amount of Assist Needed 1 Person Assist Discharge Recommendations PT Discharge Recommendations Home with Assistance, Outpatient PT Transportation Needs at Discharge Private Vehicle
--- NOTE | 2019-07-04 14:12 | PC.NURSE ---
Patient cleared by P.T. and ready for discharge to home with her daughter. Dressing with JOSE wrap remains intact. IV removed. Patient has prescriptions already at home. Patient has follow up appointment with ortho scheduled, and will call her PCP to schedule a BP check appointment. Medicated with tylenol and ibuprofen for mild discomfort prior to leaving. Patient escorted out via wheelchair with all belongings by student nurse, to be discharged to home with her daughter.
== END 2019-07-04 14:18 | disposition home or self-care (01) ==
LOC: AC 07-04 13:17 → OR 07-04 17:02
PROVIDERS: PCP Internal Medicine; Referring Provider Orthopaedic Surgery; Visit Provider Orthopaedic Surgery
PROC: 0SRC0JZ Replacement of Right Knee Joint with Synthetic Substitute, Open Approach (ICD-10-PCS; CPT 27447; principal; 2019-07-03 08:45)
DX: M17.11 Unilateral primary osteoarthritis, right knee (principal); M21.161 Varus deformity, not elsewhere classified, right knee
CPT/HCPCS: 27447; 36415; 73560; 85014; 85018; 97116; 97161; 97530; C1776; C9290; J0690; J1100; J1170; J2250; J2405; J2704; J3010

== ENCOUNTER → 2019-11-05 09:36 | Outpatient (CLI) | payer MEDICARE, SELFPAY ==
[2019-07-03 12:52] VITALS: BMI 26.6
--- NOTE | 2019-11-05 | DI.MG.S_ITS ---
BILATERAL DIGITAL SCREENING MAMMOGRAM 3D/2D WITH CAD POST LUMPECTOMY: 11/05/2019 CLINICAL: Routine screening. Personal history of bilateral breast cancer. Family history of breast cancer. Comparison is made to exams dated: 09/06/2018 mammogram, 08/31/2017 mammogram, and 08/11/2016 mammogram - [facility]. The tissue of both breasts is heterogeneously dense. This may lower the sensitivity of mammography. Current study was also evaluated with a Computer Aided Detection (CAD) system. There are benign vascular calcifications in both breasts. There also are benign post operative findings in both breasts. There are mole markers on both breasts. No significant masses, calcifications, or other findings are seen in either breast. There has been no significant interval change. IMPRESSION: There is no mammographic evidence of malignancy. A 1 year screening mammogram is recommended. This exam was interpreted at Station ID: [id number]. NOTE: For mammograms, a report in lay terms will be sent to the patient. Approximately 15% of breast malignancies will not be visualized mammographically. In the management of a palpable breast mass, a negative mammogram must not discourage biopsy of a clinically suspicious lesion. Electronically Signed By: Max burgos/samantha:11/05/2019 09:58:19 letter sent: Normal Exam ACR BI-RADS Category 2: Benign Finding(s) 3342F
== END ==
PROVIDERS: PCP Internal Medicine; Referring Provider Internal Medicine; Visit Provider Internal Medicine
DX: Z12.31 Encounter for screening mammogram for malignant neoplasm of breast (principal); Z85.3 Personal history of malignant neoplasm of breast; Z80.3 Family history of malignant neoplasm of breast
CPT/HCPCS: 77063; 77067

== ENCOUNTER → 2020-03-03 09:47 | Outpatient (CLI) | payer MEDICARE, SELFPAY ==
[2019-07-03 12:52] VITALS: BMI 26.6
[2020-03-03 10:57] LABS: INR 0.9 (0.9-1.3); Prothrombin Time 10.8 SECONDS (10.1-12.7)
[2020-03-03 11:02] LABS: Erythrocyte Sedimentation Rate 14 MM/HR (0-20)
[2020-03-03 11:07] LABS: Alanine Aminotransferase 26 IU/L (<35); Albumin 4.3 g/dL (3.5-5.0); Albumin Globulin Ratio 1.5 (1.0-2.8); Alkaline Phosphatase 100 U/L (38-126); Aspartate Aminotransferase 29 IU/L (14-36); BUN Creatinine Ratio 22.5 (6-22); Bilirubin Total 0.3 mg/dL (0.2-1.3); Bilirubin Unconjugated 0.1 mg/dL (0.0-1.1); Blood Urea Nitrogen 20 mg/dL (7-17); C-Reactive Protein Quant 1.2 mg/dL (<1.0); Calcium 9.3 mg/dL (8.4-10.2); Carbon Dioxide 28 mmol/L (22-32); Chloride 104 mmol/L (98-107); Estimated Glomerular Filt Rate > 60.0 mL/min (>60); Globulin 2.9 g/dL (1.7-4.1); Glucose 113 mg/dL (80-110); HEMOLYSIS < 15 (0-50); Potassium 4.2 mmol/L (3.4-5.1); Sodium 139 mmol/L (137-145); Total Protein 7.2 g/dL (6.3-8.2)
[2020-03-03 11:21] LABS: Free T4, Direct Thyroxine 1.11 ng/dL (0.78-2.19)
== END ==
PROVIDERS: PCP Internal Medicine; Referring Provider Internal Medicine; Visit Provider Internal Medicine
DX: E78.5 Hyperlipidemia, unspecified (principal); I10 Essential (primary) hypertension; R74.01 Elevation of levels of liver transaminase levels; L29.9 Pruritus, unspecified; K73.9 Chronic hepatitis, unspecified
CPT/HCPCS: 36415; 80048; 80076; 84439; 84443; 85610; 85651; 86140

== ENCOUNTER → 2020-04-08 12:53 | Outpatient (CLI) | payer MEDICARE, SELFPAY ==
[2019-07-03 12:52] VITALS: BMI 26.6
[2020-04-08 13:55] LABS: Add Manual Diff / Slide Review NO; Basophils Absolute Auto 100 /uL (0-100); Basophils Percent Auto 0.6 % (0-2); Eosinophils Absolute Auto 500 /uL (0-450); Eosinophils Percent Auto 6.1 % (2-4); Hematocrit 39.8 % (36-46); Hemoglobin 13.2 g/dL (12.0-16.0); Lymphocytes Absolute Auto 1800 /uL (1100-4500); Lymphocytes Percent Auto 20.4 % (25-40); Mean Corpuscular HGB Conc 33.2 % (30-36); Mean Corpuscular Hemoglobin 26.9 PG (26-34); Mean Corpuscular Volume 81.1 fL (80-100); Monocytes Absolute Auto 700 /uL (0-900); Monocytes Percent Auto 8.2 % (3-14); Neutrophils Absolute Auto 5600 /uL (1500-7000); Neutrophils Percent Auto 64.7 % (50-75); Platelet Count 196 X10^3/uL (150-400); Red Cell Distribution Width 13.7 % (11.6-14.8); White Blood Cell Count 8.6 X10^3/uL (4.5-11.0)
[2020-04-08 14:54] LABS: Rheumatoid Factor 26.8 IU/mL (<12.0)
[2020-04-10 18:36] LABS: ANA Screen, IFA Positive (.)
== END ==
PROVIDERS: PCP Internal Medicine; Referring Provider Physician Assistant; Visit Provider Physician Assistant
DX: L50.1 Idiopathic urticaria (principal); L30.9 Dermatitis, unspecified
CPT/HCPCS: 36415; 85025; 86038; 86430

== ENCOUNTER → 2020-04-16 14:37 | Outpatient (CLI) | payer MEDICARE, SELFPAY ==
[2019-07-03 12:52] VITALS: BMI 26.6
== END ==
PROVIDERS: PCP Internal Medicine; Referring Provider Physician Assistant; Visit Provider Physician Assistant
DX: L30.9 Dermatitis, unspecified (principal)
CPT/HCPCS: 36415; 86038

== ENCOUNTER → 2020-11-05 10:16 | Outpatient (CLI) | payer MEDICARE, SELFPAY ==
[2019-07-03 12:52] VITALS: BMI 26.6
--- NOTE | 2020-11-05 | DI.MG.S_ITS ---
BILATERAL DIGITAL SCREENING MAMMOGRAM 3D/2D WITH CAD POST LUMPECTOMY: 11/05/2020 CLINICAL: Routine screening. Personal history of bilateral breast cancer. Family history of breast cancer. Comparison is made to exams dated: 11/05/2019 mammogram, 09/06/2018 mammogram, and 08/31/2017 mammogram - [facility]. The tissue of both breasts is heterogeneously dense. This may lower the sensitivity of mammography. Current study was also evaluated with a Computer Aided Detection (CAD) system. There are benign vascular calcifications in both breasts. There also are benign post operative findings in both breasts. There are mole markers on both breasts. No significant masses, calcifications, or other findings are seen in either breast. There has been no significant interval change. IMPRESSION: BENIGN There is no mammographic evidence of malignancy. A 1 year screening mammogram is recommended. This exam was interpreted at Station ID: [id number]. NOTE: For mammograms, a report in lay terms will be sent to the patient. Approximately 15% of breast malignancies will not be visualized mammographically. In the management of a palpable breast mass, a negative mammogram must not discourage biopsy of a clinically suspicious lesion. Electronically Signed By: Rayshawn Hinojosa M.D., jr/samantha:11/05/2020 11:15:02 letter sent: Normal Exam ACR BI-RADS Category 2: Benign Finding(s) 3342F
== END ==
PROVIDERS: PCP Internal Medicine; Referring Provider Internal Medicine; Visit Provider Internal Medicine
DX: Z12.31 Encounter for screening mammogram for malignant neoplasm of breast (principal); Z85.3 Personal history of malignant neoplasm of breast; Z80.3 Family history of malignant neoplasm of breast
CPT/HCPCS: 77063; 77067

== ENCOUNTER → 2021-01-06 07:39 | Outpatient (CLI) | payer MEDICARE, SELFPAY ==
[2019-07-03 12:52] VITALS: BMI 26.6
== END ==
PROVIDERS: PCP Internal Medicine; Referring Provider Ophthalmology; Visit Provider Ophthalmology
DX: H16.202 Unspecified keratoconjunctivitis, left eye (principal)
CPT/HCPCS: 87070; 87205

== ENCOUNTER → 2021-06-17 10:56 | Outpatient (CLI) | payer MEDICARE, SELFPAY ==
[2019-07-03 12:52] VITALS: BMI 26.6
--- NOTE | 2021-06-17 | DI.MRI.S_ITS ---
PROCEDURE: MR SHOULDER RT WO CON INDICATIONS: BURSITIS OF RIGHT SHOULDER TECHNIQUE: Noncontrast oblique coronal T2 fast spin echo with fat saturation, oblique sagittal T1 spin echo and T2 fast spin echo with fat saturation, axial T1 spin echo and T2 fast spin echo with fat saturation through the shoulder. COMPARISON: None. FINDINGS: Image quality: Excellent. Rotator cuff: Full-thickness supraspinatus tendon with retraction by approximately 3.3 cm. Full-thickness infraspinatus tear with retraction by approximately 1.3 cm. Mild subscapularis tendinopathy with partial articular surface tear. Sagittal images demonstrate supraspinatus and infraspinatus muscle atrophy. Bones and bursae: No bone marrow contusions or fractures. Moderate acromioclavicular joint degeneration. No os acromiale. Small volume subacromial-subdeltoid bursal fluid is present. Capsule and soft tissues: Labrum demonstrates degenerative change The long head of the biceps tendon demonstrates normal location evidence of tendinopathy. Small glenohumeral joint effusion. The coracohumeral ligament is normal in thickness. IMPRESSION: 1. Full-thickness supraspinatus and infraspinatus tendon tears as described above. 2. Mild subscapularis tendinopathy with partial articular surface tear. 3. Moderate AC joint degeneration. 4. Small glenohumeral joint effusion. 5. Biceps tendinopathy. Dictated by: Von Erickson M.D. on 06/17/2021 at 11:40 Approved by: Von Erickson M.D. on 06/17/2021 at 11:51
== END ==
PROVIDERS: PCP Internal Medicine; Referring Provider Orthopaedic Surgery; Visit Provider Orthopaedic Surgery
DX: M75.51 Bursitis of right shoulder (principal); M75.121 Complete rotator cuff tear or rupture of right shoulder, not specified as traumatic; M19.011 Primary osteoarthritis, right shoulder; M25.411 Effusion, right shoulder
CPT/HCPCS: 73221

== ENCOUNTER → 2021-07-16 14:08 | Outpatient (CLI) | payer MEDICARE, SELFPAY ==
[2019-07-03 12:52] VITALS: BMI 26.6
[2021-07-16 16:00] LABS: Alanine Aminotransferase 20 IU/L (<35); Albumin 4.6 g/dL (3.5-5.0); Albumin Globulin Ratio 1.5 (1.0-2.8); Alkaline Phosphatase 81 U/L (38-126); Aspartate Aminotransferase 24 IU/L (14-36); Bilirubin Total 0.4 mg/dL (0.2-1.3); Blood Urea Nitrogen 22 mg/dL (7-17); Calcium 9.9 mg/dL (8.4-10.2); Carbon Dioxide 30 mmol/L (22-32); Chloride 106 mmol/L (98-107); Estimated Glomerular Filt Rate 50.7 mL/min (>60); Globulin 3.1 g/dL (1.7-4.1); Glucose 90 mg/dL (80-110); HEMOLYSIS < 15 (0-50); Potassium 4.1 mmol/L (3.4-5.1); Sodium 142 mmol/L (137-145); Total Protein 7.7 g/dL (6.3-8.2)
[2021-07-16 17:23] LABS: TSH w/ Reflex to FT4 1.93 uIU/mL (0.47-4.68)
== END ==
PROVIDERS: PCP Internal Medicine; Referring Provider Internal Medicine; Visit Provider Internal Medicine
DX: E78.5 Hyperlipidemia, unspecified (principal); I10 Essential (primary) hypertension
CPT/HCPCS: 36415; 80053; 84443

== ENCOUNTER → 2021-09-13 08:25 | Outpatient (CLI) | payer MEDICARE, SELFPAY ==
[2019-07-03 12:52] VITALS: BMI 26.6
[2021-09-13 09:35] LABS: BUN Creatinine Ratio 18.2 (6-22); Blood Urea Nitrogen 18 mg/dL (7-17); Calcium 9.2 mg/dL (8.4-10.2); Carbon Dioxide 30 mmol/L (22-32); Chloride 105 mmol/L (98-107); Estimated Glomerular Filt Rate 58 mL/min (>60); Glucose 100 mg/dL (80-110); HEMOLYSIS < 15 (0-50); Sodium 142 mmol/L (137-145)
== END ==
PROVIDERS: PCP Internal Medicine; Referring Provider Internal Medicine; Visit Provider Internal Medicine
DX: I10 Essential (primary) hypertension (principal)
CPT/HCPCS: 36415; 80048

== ENCOUNTER → 2021-11-10 09:42 | Outpatient (CLI) | payer MEDICARE, SELFPAY ==
[2019-07-03 12:52] VITALS: BMI 26.6
--- NOTE | 2021-11-10 | DI.MG.S_ITS ---
BILATERAL DIGITAL SCREENING MAMMOGRAM 3D/2D WITH CAD POST LUMPECTOMY: 11/10/2021 CLINICAL: Routine screening. History of bilateral breast cancer. Comparison is made to exams dated: 11/05/2020 mammogram, 11/05/2019 mammogram, and 09/06/2018 mammogram - [facility]. The tissue of both breasts is heterogeneously dense. This may lower the sensitivity of mammography. Current study was also evaluated with a Computer Aided Detection (CAD) system. There are benign vascular calcifications in both breasts. There also are benign post operative findings in both breasts. There are mole markers on both breasts. No significant masses, calcifications, or other findings are seen in either breast. There has been no significant interval change. IMPRESSION: BENIGN There is no mammographic evidence of malignancy. A 1 year screening mammogram is recommended. This exam was interpreted at Station ID: [id number]. NOTE: For mammograms, a report in lay terms will be sent to the patient. Approximately 15% of breast malignancies will not be visualized mammographically. In the management of a palpable breast mass, a negative mammogram must not discourage biopsy of a clinically suspicious lesion. Electronically Signed By: Rayshawn Hinojosa M.D., jr/samantha:11/10/2021 11:18:14 letter sent: Normal Exam ACR BI-RADS Category 2: Benign Finding(s) 3342F
== END ==
PROVIDERS: PCP Internal Medicine; Referring Provider Internal Medicine; Visit Provider Internal Medicine
DX: Z12.31 Encounter for screening mammogram for malignant neoplasm of breast (principal); Z85.3 Personal history of malignant neoplasm of breast
CPT/HCPCS: 77063; 77067

== ENCOUNTER → 2022-06-16 13:09 | Outpatient (CLI) | payer MEDICARE, SELFPAY ==
[2019-07-03 12:52] VITALS: BMI 26.6
[2022-06-16 14:30] LABS: BUN Creatinine Ratio 31.5 (6-22); Blood Urea Nitrogen 39 mg/dL (7-17); Calcium 9.3 mg/dL (8.4-10.2); Carbon Dioxide 26 mmol/L (22-32); Chloride 101 mmol/L (98-107); Estimated Glomerular Filt Rate 44 mL/min (>60); Glucose 83 mg/dL (80-110); HEMOLYSIS 21 (0-50); Potassium 4.6 mmol/L (3.4-5.1); Sodium 138 mmol/L (137-145)
== END ==
PROVIDERS: PCP Internal Medicine; Referring Provider Internal Medicine; Visit Provider Internal Medicine
DX: I10 Essential (primary) hypertension (principal)
CPT/HCPCS: 36415; 80048

== ENCOUNTER → 2022-11-11 11:47 | Outpatient (CLI) | payer MEDICARE, SELFPAY ==
[2019-07-03 12:52] VITALS: BMI 26.6
--- NOTE | 2022-11-11 | DI.MG.S_ITS ---
BILATERAL DIGITAL SCREENING MAMMOGRAM 3D/2D WITH CAD: 11/11/2022 CLINICAL: Routine screening. Personal history of bilateral breast cancer. Family history of breast cancer. Comparison is made to exams dated: 11/10/2021 mammogram, 11/05/2020 mammogram, and 11/05/2019 mammogram - [facility]. Both breasts are heterogeneously dense, which may obscure small masses (category c / 51-75% glandular tissue). Current study was also evaluated with a Computer Aided Detection (CAD) system. There are benign vascular calcifications in both breasts. There also are benign post operative findings in both breasts. There are mole markers on both breasts. No significant masses, calcifications, or other findings are seen in either breast. There has been no significant interval change. IMPRESSION: BENIGN There is no mammographic evidence of malignancy. A 1 year screening mammogram is recommended. This exam was interpreted at Station ID: [id number]. NOTE: For mammograms, a report in lay terms will be sent to the patient. Approximately 15% of breast malignancies will not be visualized mammographically. In the management of a palpable breast mass, a negative mammogram must not discourage biopsy of a clinically suspicious lesion. Electronically Signed By: Max burgos/samantha:11/11/2022 14:44:52 letter sent: Normal Exam ACR BI-RADS Category 2: Benign Finding(s) [id number]
== END ==
PROVIDERS: PCP Internal Medicine; Referring Provider Internal Medicine; Visit Provider Internal Medicine
DX: Z12.31 Encounter for screening mammogram for malignant neoplasm of breast (principal); Z85.3 Personal history of malignant neoplasm of breast; Z80.3 Family history of malignant neoplasm of breast
CPT/HCPCS: 77063; 77067

== ENCOUNTER → 2022-12-05 08:52 | Outpatient (CLI) | payer MEDICARE, SELFPAY ==
[2019-07-03 12:52] VITALS: BMI 26.6
[2022-12-05 10:42] LABS: BUN Creatinine Ratio 19.4 (6-22); Blood Urea Nitrogen 27 mg/dL (7-17); Calcium 9.4 mg/dL (8.4-10.2); Carbon Dioxide 28 mmol/L (22-32); Chloride 103 mmol/L (98-107); Estimated Glomerular Filt Rate 38 mL/min (>60); Glucose 104 mg/dL (80-110); HEMOLYSIS < 15 (0-50); Potassium 4.8 mmol/L (3.4-5.1); Sodium 137 mmol/L (137-145); Uric Acid 9.9 mg/dL (2.5-6.2)
== END ==
PROVIDERS: PCP Internal Medicine; Referring Provider Internal Medicine; Visit Provider Internal Medicine
DX: M1A.00X0 Idiopathic chronic gout, unspecified site, without tophus (tophi) (principal); I10 Essential (primary) hypertension; N18.31 Chronic kidney disease, stage 3a
CPT/HCPCS: 36415; 80048; 84550

== ENCOUNTER → 2023-03-14 13:16 | Outpatient (CLI) | payer MEDICARE, SELFPAY ==
[2019-07-03 12:52] VITALS: BMI 26.6
[2023-03-14 14:49] LABS: BUN Creatinine Ratio 27.1 (6-22); Blood Urea Nitrogen 39 mg/dL (7-17); Calcium 9.7 mg/dL (8.4-10.2); Carbon Dioxide 24 mmol/L (22-32); Chloride 101 mmol/L (98-107); Estimated Glomerular Filt Rate 37 mL/min (>60); Glucose 109 mg/dL (80-110); HEMOLYSIS < 15 (0-50); Potassium 5.1 mmol/L (3.4-5.1); Sodium 137 mmol/L (137-145)
== END ==
PROVIDERS: PCP Internal Medicine; Referring Provider Internal Medicine; Visit Provider Internal Medicine
DX: I10 Essential (primary) hypertension (principal); N18.31 Chronic kidney disease, stage 3a
CPT/HCPCS: 36415; 80048

== ENCOUNTER → 2023-06-13 09:41 | Outpatient (CLI) | payer MEDICARE, SELFPAY ==
[2019-07-03 12:52] VITALS: BMI 26.6
[2023-06-13 10:55] LABS: BUN Creatinine Ratio 26.4 (6-22); Blood Urea Nitrogen 37 mg/dL (7-17); Carbon Dioxide 27 mmol/L (22-32); Chloride 101 mmol/L (98-107); Estimated Glomerular Filt Rate 38 mL/min (>60); Glucose 81 mg/dL (80-110); HEMOLYSIS < 15 (0-50); Potassium 4.4 mmol/L (3.4-5.1); Sodium 138 mmol/L (137-145); Uric Acid 9.6 mg/dL (2.5-6.2)
== END ==
PROVIDERS: PCP Internal Medicine; Referring Provider Internal Medicine; Visit Provider Internal Medicine
DX: N18.31 Chronic kidney disease, stage 3a (principal); I10 Essential (primary) hypertension; M1A.9XX0 Chronic gout, unspecified, without tophus (tophi)
CPT/HCPCS: 36415; 80048; 84550

== ENCOUNTER 2023-08-08 08:50 | Observation (INO) | payer MEDICARE, SELFPAY ==
[2019-07-03 12:52] VITALS: BMI 26.6
[2023-08-08] VITALS (23 sets, daily range): BP systolic 150–219; BP diastolic 59–94; PULSE 72–91; RESP 13–27; TEMP 36.4–36.8; O2SAT 92–100; BMI 25.0; BMI 26.6
--- NOTE | 2023-08-08 09:09 | DI.RAD.S_ITS ---
PROCEDURE: XR CHEST 1V INDICATIONS: chest pain TECHNIQUE: One view of the chest was acquired. COMPARISON: [facility], , CHEST 2 VIEW, 01/07/2014, 10:13. FINDINGS: Surgical changes and devices: None. Lungs and pleura: Lungs are clear. No pleural effusions or pneumothorax. Mediastinum: Mediastinal contours appear normal. Heart size is normal. Bones and chest wall: No suspicious bony lesions. Overlying soft tissues appear unremarkable. IMPRESSION: No acute cardiopulmonary abnormality is seen. Dictated by: Britney Angulo M.D. on 08/08/2023 at 9:39 Approved by: Britney Angulo M.D. on 08/08/2023 at 9:39
[2023-08-08 09:22] LABS: Add Manual Diff / Slide Review NO; Basophils Absolute Auto 100 /uL (0-100); Basophils Percent Auto 0.9 % (0-2); Eosinophils Absolute Auto 300 /uL (0-450); Hematocrit 36.7 % (36-46); Hemoglobin 12.1 g/dL (12.0-16.0); Lymphocytes Absolute Auto 1500 /uL (1100-4500); Lymphocytes Percent Auto 16.7 % (25-40); Mean Corpuscular HGB Conc 33.1 % (30-36); Mean Corpuscular Hemoglobin 26.2 PG (26-34); Mean Corpuscular Volume 79.3 fL (80-100); Monocytes Absolute Auto 700 /uL (0-900); Monocytes Percent Auto 7.6 % (3-14); Neutrophils Absolute Auto 6200 /uL (1500-7000); Neutrophils Percent Auto 70.8 % (50-75); Platelet Count 208 X10^3/uL (150-400); Red Blood Cell Count 4.63 X10^6/uL (4.0-5.2); Red Cell Distribution Width 14.1 % (11.6-14.8); White Blood Cell Count 8.7 X10^3/uL (4.5-11.0)
--- NOTE | 2023-08-08 09:23 | PC.NURSE ---
Pt came to the ED today because she passed out in the shower and hit her head. + LOC. Pt c/o 10/05 crushing/sharp cp and SOB. Pt currently taking pednisone for gout that was prescribed by her pcp. Pt states that she recently felt dizzy like this while she was shopping at [employer] and had to be escorted to her car before she passed out. Currently a&ox4. Hx htn and breast CA.
[2023-08-08 09:30] LABS: Prothrombin Time 11.4 SECONDS (9.4-12.5)
--- NOTE | 2023-08-08 09:32 | DI.CT.S_ITS ---
PROCEDURE: CT HEAD/BRAIN WO CON INDICATIONS: fall, hit head TECHNIQUE: Noncontrast 4.5 mm thick angled axial sections acquired from the foramen magnum to the vertex, with coronal and sagittal reformats. For radiation dose reduction, the following was used: automated exposure control, adjustment of mA and/or kV according to patient size. COMPARISON: None. FINDINGS: Image quality: Diagnostic. CSF spaces: Basal cisterns are patent. No extra-axial fluid collections. The ventricles are symmetric in size and shape. Brain: No intracranial bleeds or masses. There is cerebral volume loss for age, with resultant ventricular and sulcal prominence. There are periventricular and deep white matter chronic small vessel ischemic changes. There is intracranial internal carotid artery atherosclerosis. Skull and face: Calvarium and visualized facial bones appear intact, without suspicious lesions. Sinuses: Visualized sinuses and mastoids are clear. IMPRESSION: No acute intracranial pathology. Dictated by: Britney Angulo M.D. on 08/08/2023 at 10:00 Approved by: Britney Angulo M.D. on 08/08/2023 at 10:00
--- NOTE | 2023-08-08 09:32 | DI.CT.S_ITS ---
PROCEDURE: CT CERVICAL SPINE WO CON INDICATIONS: fall, hit head TECHNIQUE: Noncontrast 3 mm thick sections acquired from the skull base to the T4 level. Sagittal and coronal reformats were then constructed. For radiation dose reduction, the following was used: automated exposure control, adjustment of mA and/or kV according to patient size. COMPARISON: None. FINDINGS: Image quality: Excellent. Bones: No fractures or dislocations. Visualized superior ribs are intact. Soft tissues: Prevertebral soft tissues are normal in thickness. No paravertebral hematomas. No apical pneumothoraces. IMPRESSION: No acute fracture. No osseous lesion. If symptoms and/or clinical suspicion for pathology persist, further assessment with MRI or bone scan may be helpful for further assessment. Dictated by: Britney Angulo M.D. on 08/08/2023 at 10:00 Approved by: Britney Angulo M.D. on 08/08/2023 at 10:02
[2023-08-08 09:33] LABS: PTT Partial Thromboplastin Tim 34 SECONDS (25.1-36.5)
[2023-08-08 09:35] LABS: Alanine Aminotransferase 18 IU/L (<35); Albumin 4.3 g/dL (3.5-5.0); Albumin Globulin Ratio 1.3 (1.0-2.8); Alkaline Phosphatase 92 U/L (38-126); Aspartate Aminotransferase 21 IU/L (14-36); BUN Creatinine Ratio 15.3 (6-22); Bilirubin Total 0.5 mg/dL (0.2-1.3); Blood Urea Nitrogen 19 mg/dL (7-17); Calcium 9.4 mg/dL (8.4-10.2); Carbon Dioxide 27 mmol/L (22-32); Chloride 105 mmol/L (98-107); Creatine Kinase 45 U/L (30-135); Estimated Glomerular Filt Rate 44 mL/min (>60); Globulin 3.2 g/dL (1.7-4.1); Glucose 116 mg/dL (80-110); HEMOLYSIS < 15 (0-50); Lipase 125 U/L (23-300); Magnesium 1.8 mg/dL (1.6-2.3); Potassium 4.3 mmol/L (3.4-5.1); Sodium 139 mmol/L (137-145); Total Protein 7.5 g/dL (6.3-8.2)
[2023-08-08 09:46] LABS: Troponin I < 0.012 ng/mL (0.01-0.034)
[2023-08-08 09:59] LABS: NT-proBNP (BNP-Adult 18+) 819 pg/mL (<450)
--- NOTE | 2023-08-08 09:59 | ED.SYNCOPE ---
HPI - Syncope General Chief Complaint: Syncope Stated Complaint: syncope, sob, chest pain Time Seen by Provider: 08/08/23 09:32 Source: patient Mode of arrival: Family Vehicle Limitations: no limitations History of Present Illness HPI narrative: 82-year-old female with history of hypertension, dyslipidemia, GERD and gout. Patient presents with symptoms of lightheadedness and feeling like she was going to pass out she had an episode today while taking a shower. States she felt very dizzy like she would pass out and then woke up on the floor. She is good pulled herself up but continued to have some dizziness and felt very lightheaded like she would pass out for a little bit. She is to feels improved now. She did have an episode a week ago while at the grocery store was very similar but did not lose consciousness but felt very close. She has had episodes on and off and will feel short of breath with these episodes when they occur. She has not appreciate any palpitations in her chest. She states no chest pain or pressure until today. Is on her left side. It has not worse with movement cold cough. No nausea or vomiting. She did not have any bowel or bladder incontinence. No issues with bowel movements recently. Normal urination. She denies any headache. She did not realize she had a cut on her brow until she looked in the mirror. Patient states no prior cardiac issues has been told she has a murmur. No prior stents. Was recently treated for gout and was on prednisone for 4 days about 2 weeks ago. Surgeries include knee replacement, cholecystectomy, treated for gallstone pancreatitis. Has had a history of silent migraines. No tobacco, last alcohol was 6 months ago she drinks very rarely, no recreational drugs. No known drug allergies. Dr. Gonzalez is her primary care physician. Related Data Home Medications Medication Instructions Recorded Confirmed cholecalciferol (vitamin D3) 50 50 mcg PO DAILY 03/03/20 06/13/23 mcg (2,000 unit) capsule ascorbate calcium (vitamin C) 1 cap PO DAILY 03/19/21 06/13/23 ibuprofen 200 mg tablet 400 mg PO DAILY 03/19/21 06/13/23 Previous Rx's Medication Instructions Recorded clonidine HCl 0.2 mg tablet 0.2 mg PO Q4H PRN hypertensive 07/16/21 emergency #60 tabs simvastatin 20 mg tablet 20 mg PO QDAY #90 tabs 06/30/22 lisinopril 40 mg tablet 40 mg PO DAILY #90 tabs 08/15/22 metoprolol succinate 25 mg 25 mg PO DAILY #90 tabs 12/19/22 tablet,extended release 24 hr chlorthalidone 25 mg tablet 25 mg PO Q OTHER DAY #45 tabs 05/04/23 omeprazole 40 mg capsule,delayed 40 mg PO HS #90 caps 05/04/23 release Allergies Allergy/AdvReac Type Severity Reaction Status Date / Time No Known Drug Allergies Allergy Verified 08/08/23 09:13 Review of Systems Review of Systems ROS Unobtainable: All systems reviewed & are unremarkable except as noted in HPI and below Patient History Medical History Chronic gout Chronic renal failure, stage 3a Elevated liver enzymes (~2017) Difficulty swallowing Bilateral breast cancer Cardiac murmur Carotid bruit Hypertension Cholelithiasis (~01/2016) Pancreatitis Gastroesophageal reflux disease (02/07/14) History of malignant neoplasm of breast (08/31/11) Hyperlipidemia (08/31/11) Essential hypertension (08/31/11) Surgical History S/P knee replacement (~06/2019) Hx of bilateral cataract extraction (~10/2018) History of lumpectomy of both breasts History of colonoscopy Hx of tonsillectomy Status post laparoscopic cholecystectomy (04/07/16) Status post appendectomy (~1958) Social History marital status: number of children: 4 household members: none lives independently: Yes caregiver/support person: No housing: house pets and animals: No education level: college occupational status: employed current occupational exposures/hazards: Yes prince/lutheran: Nondenominational travel history: recent leisure activities: exercise and other Smoking Status: Never smoker Tobacco: How many years used: 0 quit status: quit date established second hand exposure: No alcohol intake: current substance use type: does not use Smoking Status: Never smoker alcohol intake frequency: holidays/special occasions only Substance Use Type: does not use Exam Narrative Exam Narrative: GEN: atient appears in mild distress. HEAD: Patient a 2 cm superficial laceration over the left brow, slightly gapped the base, no raccoon/Moura sign. NECK: Nontender, painless range of motion, trachea midline Negative Nexus criteria, there is no midline line tenderness, distracting injury, altered mental status, neuro deficit, recent EtOH. EYES: PERRLA, EOMI ENT: External inspection normal other than above, trachea is midline, TM's are normal no hemotypanum, Nares are clear, no septal hematoma, no dental or oral injury, airway is normal and with normal occlusion, No bony tenderness RESP: Chest is nontender and has symmetric movement, no ecchymosis, breath sounds are normal no crackles, wheezes or rales CVS: Heart sounds are normal, no murmur noted, patient does have frequent PVC somewhat irregular heartbeat on exam No JVD. ABG/GI: Nontender, soft, normal bowel sounds, no distention, no organomegaly, pelvic rock is negative NEURO: Oriented AOx3, neuro is grossly intact, sensation and motor is normal all 4 extremities moving, cranial nerves II through XII are intact, GCS is 15 PSYCH: Normal mood and affect SKIN: Intact, warm and dry, no crepitus and without decubitus BACK: No CVA tenderness, no vertebral tenderness, no step-off's, no crepitus EXT: Atraumatic, hips are nontender, no pedal edema, normal color and temperature, normal range of motion of extremities with normal tendon exam, 2+ pulses in all four extremities Initial Vital Signs Initial Vital Signs: Vital Signs Temperature 98.2 F 08/08/23 09:10 Pulse Rate 86 08/08/23 09:10 Respiratory Rate 17 08/08/23 09:10 Blood Pressure 196/94 H 08/08/23 09:10 Pulse Oximetry 92 08/08/23 09:10 Oxygen Delivery Method Room Air 08/08/23 09:10 Procedures Laceration Repair Laceration 1: Site: face Side (If applicable): left Size (cm): 2 Description: linear Depth: simple, single layer Pre-repair: wound explored, irrigated extensively and deep structures intact Skin layer closed with: dermabond (steristrips applied) Scores PERC Score Age greater than or equal to 50 years: Yes Heart rate greater than or equal to 100 bpm: No Room Air O2 Sat less than 95%: No Unilateral leg swelling: No Recent trauma or surgery: No Hemoptysis: No Prior PE or DVT: No Hormone Use: No Total PERC Score: 1 Course Orders Ordered: ED Orders 08/08/23 09:09 XR chest 1V Stat EKG-12 Lead Stat 08/08/23 09:15 BNP [NT-proBNP (BNP-Adult 18+)] Stat Complete Blood Count AUTO DIFF Stat Comprehensive Metabolic Panel Stat Lipase Stat Magnesium Stat PTT Partial Thromboplastin Gino Stat Prothrombin Time INR Stat Troponin & CK Cardiac Panel Stat 08/08/23 09:32 CT cervical spine wo con Stat CT head/brain wo con Stat 08/08/23 10:45 Covid-19 + FLU A/B + RSV - PCR Stat 08/08/23 11:20 Trop I [Troponin I] Stat 08/08/23 11:26 Urine Culture Stat Urine Microscopic Stat 08/08/23 12:20 EC echo doppler complete Stat Discontinued Medications Aspirin (Aspirin 81 Mg Chew Tab) 324 mg PO NOW ONE Stop: 08/08/23 09:10 Last Admin: 08/08/23 10:12 Dose: Not Given Documented By: FABIOLA Sodium Chloride (Normal Saline 0.9%) 1,000 mls @ 1,000 mls/hr IV BOLUS ONE Stop: 08/08/23 11:02 Last Infusion: 08/08/23 11:13 Dose: Infused Documented By: Admin: 08/08/23 10:12 Dose: 1,000 mls/hr Documented By: FABIOLA Metoprolol Tartrate (Metoprolol Ir 25 Mg Tablet) 25 mg PO NOW ONE Stop: 08/08/23 10:20 Last Admin: 08/08/23 10:40 Dose: 25 mg Documented By: FABIOLA Vital Signs Vital signs: Vital Signs - 8 hr 08/08/23 09:10 08/08/23 09:10 08/08/23 09:15 Temperature 98.2 F Pulse Rate 86 91 H 83 Respiratory Rate 17 19 15 Blood Pressure 196/94 H 196/94 H 198/90 H Pulse Oximetry 92 98 Oxygen Delivery Method Room Air Room Air 08/08/23 09:30 08/08/23 09:54 08/08/23 09:59 Temperature Pulse Rate 79 76 Respiratory Rate 18 Blood Pressure 176/92 H 186/81 H Pulse Oximetry 98 Oxygen Delivery Method 08/08/23 09:59 08/08/23 10:00 08/08/23 10:00 Temperature Pulse Rate 78 81 Respiratory Rate 16 16 Blood Pressure 198/77 H Pulse Oximetry 99 100 Oxygen Delivery Method 08/08/23 10:30 08/08/23 10:31 08/08/23 10:31 Temperature Pulse Rate 81 81 Respiratory Rate 20 19 Blood Pressure 194/83 H Pulse Oximetry 100 99 Oxygen Delivery Method 08/08/23 11:00 08/08/23 11:01 08/08/23 11:01 Temperature Pulse Rate 74 73 Respiratory Rate 13 18 Blood Pressure 182/74 H Pulse Oximetry 100 99 Oxygen Delivery Method 08/08/23 11:25 08/08/23 11:25 Temperature Pulse Rate 78 Respiratory Rate 15 Blood Pressure 219/88 H Pulse Oximetry 92 Oxygen Delivery Method MDM - Syncope Lab Data 08/08/23 09:15 08/08/23 09:15 Labs: Lab Results 08/08/23 08/08/23 08/08/23 Range/Units 09:15 10:45 11:20 WBC 8.7 (4.5-11.0) X10^3/uL RBC 4.63 (4.0-5.2) X10^6/uL Hgb 12.1 (12.0-16.0) g/dL Hct 36.7 (36-46) % MCV 79.3 L (80-100) fL MCH 26.2 (26-34) PG MCHC 33.1 (30-36) % RDW 14.1 (11.6-14.8) % Plt Count 208 (150-400) X10^3/uL Neut % (Auto) 70.8 (50-75) % Lymph % (Auto) 16.7 L (25-40) % Mccreary % (Auto) 7.6 (3-14) % Eos % (Auto) 4.0 (2-4) % Baso % (Auto) 0.9 (0-2) % Neut # (Auto) 6200 (9621-1621) /uL Lymph # (Auto) 1500 (5630-0896) /uL Mccreary # (Auto) 700 (0-900) /uL Eos # (Auto) 300 (0-450) /uL Baso # (Auto) 100 (0-100) /uL PT 11.4 (9.4-12.5) SECONDS INR 1.0 (0.9-1.3) APTT 34 (25.1-36.5) SECONDS Sodium 139 (137-145) mmol/L Potassium 4.3 (3.4-5.1) mmol/L Chloride 105 (98-107) mmol/L Carbon Dioxide 27 (22-32) mmol/L BUN 19 H (7-17) mg/dL Creatinine 1.24 H (0.52-1.04) mg/dL Estimated GFR 44 L (>60) mL/min BUN/Creatinine Ratio 15.3 (6-22) Glucose 116 H (80-110) mg/dL Calcium 9.4 (8.4-10.2) mg/dL Magnesium 1.8 (1.6-2.3) mg/dL Total Bilirubin 0.5 (0.2-1.3) mg/dL AST 21 (14-36) IU/L ALT 18 (<35) IU/L Alkaline Phosphatase 92 (38-126) U/L Total Creatine Kinase 45 (30-135) U/L Troponin I < 0.012 < 0.012 (0.01-0.034) ng/mL NT-Pro-B Natriuret Pep 819 H (<450) pg/mL Total Protein 7.5 (6.3-8.2) g/dL Albumin 4.3 (3.5-5.0) g/dL Globulin 3.2 (1.7-4.1) g/dL Albumin/Globulin Ratio 1.3 (1.0-2.8) Lipase 125 (23-300) U/L Urine RBC (0-5/HPF) Urine WBC (0-5/HPF) Ur Squamous Epith Cells (0-5/HPF) Urine Bacteria (None) Ur Culture Indicated? Vol Urine Centrifuged SARS-CoV-2 (PCR) Negative (Negative) Influenza A (RT-PCR) Flu a negative (NEGATIVE) Influenza B (RT-PCR) Flu b negative (NEGATIVE) RSV (PCR) Negative (Negative) 08/08/23 Range/Units 11:26 WBC (4.5-11.0) X10^3/uL RBC (4.0-5.2) X10^6/uL Hgb (12.0-16.0) g/dL Hct (36-46) % MCV (80-100) fL MCH (26-34) PG MCHC (30-36) % RDW (11.6-14.8) % Plt Count (150-400) X10^3/uL Neut % (Auto) (50-75) % Lymph % (Auto) (25-40) % Mccreary % (Auto) (3-14) % Eos % (Auto) (2-4) % Baso % (Auto) (0-2) % Neut # (Auto) (6530-7218) /uL Lymph # (Auto) (6140-1491) /uL Mccreary # (Auto) (0-900) /uL Eos # (Auto) (0-450) /uL Baso # (Auto) (0-100) /uL PT (9.4-12.5) SECONDS INR (0.9-1.3) APTT (25.1-36.5) SECONDS Sodium (137-145) mmol/L Potassium (3.4-5.1) mmol/L Chloride (98-107) mmol/L Carbon Dioxide (22-32) mmol/L BUN (7-17) mg/dL Creatinine (0.52-1.04) mg/dL Estimated GFR (>60) mL/min BUN/Creatinine Ratio (6-22) Glucose (80-110) mg/dL Calcium (8.4-10.2) mg/dL Magnesium (1.6-2.3) mg/dL Total Bilirubin (0.2-1.3) mg/dL AST (14-36) IU/L ALT (<35) IU/L Alkaline Phosphatase (38-126) U/L Total Creatine Kinase (30-135) U/L Troponin I (0.01-0.034) ng/mL NT-Pro-B Natriuret Pep (<450) pg/mL Total Protein (6.3-8.2) g/dL Albumin (3.5-5.0) g/dL Globulin (1.7-4.1) g/dL Albumin/Globulin Ratio (1.0-2.8) Lipase (23-300) U/L Urine RBC None seen (0-5/HPF) Urine WBC 5-10/hpf H (0-5/HPF) Ur Squamous Epith Cells 10-30 /hpf H (0-5/HPF) Urine Bacteria Moderate (10-30) H (None) Ur Culture Indicated? Specimen cultured Vol Urine Centrifuged 10ml (spun) SARS-CoV-2 (PCR) (Negative) Influenza A (RT-PCR) (NEGATIVE) Influenza B (RT-PCR) (NEGATIVE) RSV (PCR) (Negative) Urine Dip Bedside Urine Glucose Negative Bedside Urine Bilirubin - Negative Bedside Urine Ketone - Negative Urine Specific [place] 1.020 Bedside Urine Occult Blood - Negative Bedside Urine pH 6.0 Bedside Urine Protein +/- 15 Bedside Urine Urobilinogen - Negative Bedside Urine Nitrite - Negative Bedside Urine Leukocytes - Negative Esterase Imaging Data Chest x-ray: Radiologist's Impression: Krista Houston??82??F??1940 ? Allergy/Adv: No Known Drug Allergies (More??) Close Head CT 08/08/[address] 08/08/23 Chest X-Ray (Signed) Britney Angulo - 08/08/23 Mammogram Screening (Signed) Max Mckenzie - 11/11/22 Mammogram Screening (Signed) Rayshawn Hinojosa - 11/10/21 Shoulder MRI (Signed) Von Erickson - 06/17/21 Mammogram Screening (Signed) Rayshawn Hinojosa - 11/05/20 Mammogram Screening (Signed) Max Mckenzie - 11/05/19 Knee X-Ray (Signed) Jace Mo - 07/03/19 Carotid Doppler Study (Signed) Max Mckenzie - 02/20/19 Brain MRI (Signed) Britney Angulo - 02/20/19 Echocardiogram Ultrasound (Signed) Jose Miguel Hsieh - 02/19/19 Mammogram Screening (Signed) Martínez Del Castillo - 09/06/18 Launch?Image [address] [address] XRay Report Signed Patient: Krista Houston MR#: [id number] : 1940 Acct:[id number] Age/Sex: 82 / F Date of Service: 08/08/23 Loc: Accession Number: [id number] Procedure: XR chest 1V Ordering Provider: Lu Morfin D.O. PROCEDURE: XR CHEST 1V INDICATIONS: chest pain TECHNIQUE: One view of the chest was acquired. COMPARISON: [facility], [place], CHEST 2 VIEW, 01/07/2014, 10:13. FINDINGS: Surgical changes and devices: None. Lungs and pleura: Lungs are clear. No pleural effusions or pneumothorax. Mediastinum: Mediastinal contours appear normal. Heart size is normal. Bones and chest wall: No suspicious bony lesions. Overlying soft tissues appear unremarkable. IMPRESSION: No acute cardiopulmonary abnormality is seen. Dictated by: Britney Angulo M.D. on 08/08/2023 at 9:39 Approved by: Britney Angulo M.D. on 08/08/2023 at 9:39 ECG Data Attestation: I personally reviewed and interpreted this ECG as follows: Prior ECG tracings: available for review Interpretation: Sinus rhythm with frequent premature atrial complexes, right bundle-branch block, rate of 96 GA 206 QRS of 116 QTC of 482. Prior from 06/10/2019 has RSR in 3 and AVF but not appreciated in lateral leads. Did not have CBC is as frequently. EKG2. Sinus rhythm right bundle-branch rate 72 GA 180 QRS of 112 QTC of 453. No acute ST elevation or depression noted. Patient still continues to have PVCs but not as frequently. [facility] Narrative Medical decision making narrative: 82-year-old female with syncopal episode earlier today and some near syncopal episodes in the last week. Patient has quite frequent PVCs but otherwise asymptomatic at this time. Patient's workup labs show white count 8.7 hemoglobin of 12, platelets of 208 coags are negative. Patient's creatinine is 1.24, improved from baseline in May and February, sodium is 139 potassium 4.3 magnesium is 1 point, chloride 105 with a CO2 of 27 and a BUN 19, glucose stain negative troponin and a BNP of 819 Chest x-ray shows no acute change. Head CT is negative for acute change, CT C-spine shows no acute fracture. EKG shows frequent PVCs but no other significant rhythm changes. Patient has a right bundle-branch block. Prior EKGs had RSR in 3 and but was not as appreciable lateral leads. Patient received fluids did give her additional dose of her home metoprolol dose but immediate release she normally takes hers in the evening. Discussed with patient she does not wish for sutures do think her laceration be amenable to Dermabond and Steri-Strips she would prefer this route. Repeat troponin is negative and EKG does show right bundle-branch, PVCs are still present frequently on telemetry but not quite as persistently. Patient ambulated to the bathroom still was quite lightheaded and felt like she might pass out. Laceration was repaired with Dermabond and Steri-Strips. Spoke with Dr. Gonzalez about observation for syncope with frequent PVCs. He accepts for observation for syncope with frequent PVCs. Patient updated. She is comfortable with the plan. Discharge Plan Departure Patient Disposition: Admitted as Observation Clinical Impression: Syncope, Frequent PVCs Admit Date/Time: 08/08/23 12:29 Admit Provider: Andrew Gonzalez
[2023-08-08] MEDS: SODIUM CHLORIDE 0.9% 1,000 ML 1000 ML IV (10:12)
[2023-08-08] MEDS: METOPROLOL IR 25 MG TABLET PO ×2 (10:40→17:53)
[2023-08-08 11:25] LABS: COVID-19 CEPHEID 4-PLEX PCR Negative (Negative); Influenza A - CEPHEID Flu A NEGATIVE (NEGATIVE); Influenza B - CEPHEID Flu B NEGATIVE (NEGATIVE); Respiratory Syncytial Virus Negative (Negative)
--- NOTE | 2023-08-08 11:27 | PC.NURSE ---
Pt ambulated to bathroom with standby assist with TEST CARRIER. pt used bathroom call nash because she began to feel extremely dizzy. Pt denies SOB or CP. Pt Taken back to bed. HR 84 BP 219/88. Pt states that she did not black out, but she felt like if she did not sit down she would faint. Pt a&ox4, answers all questions appropriately. Dr Morfin notified.
[2023-08-08 11:51] LABS: Urine Volume 10mL (spun)
[2023-08-08 11:54] LABS: RBC Urine None Seen (0-5/HPF); WBC Urine 5-10/HPF (0-5/HPF)
[2023-08-08 11:55] LABS: Bacteria Urine Moderate (10-30); Culture Indicated Urine Specimen Cultured; Squamous Epithelial Cell Urine 10-30 /HPF (0-5/HPF)
[2023-08-08 11:56] LABS: Troponin I < 0.012 ng/mL (0.01-0.034)
--- NOTE | 2023-08-08 12:20 | DI.ECHO.S_ITS ---
Version: 1 Study ID: [id number] [place] [address] Name: JORDAN GONSALVES Study Date: 08/08/2023, 1: 55 PM : 1940 BP: 198 / 82 mmHg Gender: Female Height: 66 in Age: 82 Years Weight: 157 lb BSA: 1.80 mA? Ordering: MAURO RODRIGUEZ Referring: MAURO RODRIGUEZ Clinician: Rayshawn Pabon Reason For Study: SYNCOPE, SOB, CHEST PAIN History: Summary Statements Normal sinus rhythm Normal LV size and borderline LVH; EF is 55-60%. Normal chamber sizes. Aortic valve is a trileaflet structure with moderate aortic stenosis. Peak velocity is 3.5 m/sec; mean gradient is 28 mm Hg. Estimated PA systolic pressure is 58 mm Hg assuming RA pressure of 15 mm Hg. Compared to prior study 02/19/2019 Aortic stenosis is newly described. Procedure: A two-dimensional transthoracic echocardiogram with color flow and Doppler was performed. The study quality was technically adequate. Comparison is made with the echocardiogram of 02/19/2019. Left Ventricle: The left ventricle is normal in size. There is borderline concentric left ventricular hypertrophy. EF ESTIMATED 55-60. Right Ventricle: The right ventricle is normal size. The right ventricular systolic function is normal. Atria: The left atrial size is normal. Right atrial size is normal. Mitral Valve: The mitral valve is normal in structure and function. CALCIFICATION ON AMVL. There is no mitral valve stenosis. There is mild to moderate mitral regurgitation. Aortic Valve: The aortic valve is trileaflet. The aortic valve is mildly calcified. There is moderate aortic stenosis. The peak aortic velocity is 3.51 m/sec. The aortic valve mean gradient is 27.7 mmHg. There is mild aortic regurgitation. Tricuspid Valve: The tricuspid valve is normal in structure and function. There is no tricuspid stenosis. There is mild tricuspid regurgitation. The right ventricular systolic pressure is estimated to be at least 58 mmHg based on an estimated right atrial pressure of 15 mm Hg. Pulmonic Valve: The pulmonic valve is not well visualized. There is no pulmonic valvular stenosis. There is no pulmonic valvular regurgitation. Great Vessels: The aortic root is normal size. The ascending aorta could not be visualized. The IVC is dilated (diameter is greater than 2.1 cm) and it collapses less than 50% with a sniff. This suggests a high right atrial pressure of 15 mm Hg. Pericardium/ Pleura: There is no pericardial effusion. There is no pleural effusion. 2D and M-Mode Measurements and Calculations LVIDd: 4.5 cm LVOT diam: 1.95 cm LVIDs: 3.2 cm Ao root diam: 3.0 cm IVSd: 1.13 cm Ao Arch Diam (Prox Trans): 3.5 cm LVPWd: 1.17 cm LV martinez. diameter/BSA (cm/m^2): 2.5 LV sys. diameter/BSA (cm/m^2): 1.79 RVD1 (basal): 3.2 cm RVD2 (mid): 2.9 cm TAPSE: 2.7 cm LA A4 area: 19.0 manager infusion? IVC diam: 2.30 cm LA A2 area: 19.8 manager infusion? RA area: 11.5 manager infusion? LA length (vol): 5.2 cm RA long axis: 4.3 cm LA vol: 61.8 ml RA vol: 26.3 ml LA vol index: 34.2 ml/mA? RA : 14.5 ml/mA? Doppler Measurements and Calculations Ao V2 max: 351.3 cm/sec LVOT Max Rainer: 124.6 cm/sec Ao V2 mean: 248.8 cm/sec LV V1 max P.2 mmHg Ao V2 VTI: 89.4 cm LV V1 VTI: 31.2 cm Ao max P.4 mmHg SV(LVOT): 93.0 ml Ao mean P.7 mmHg SVETLANA(I,D): 1.04 manager infusion? SVETLANA(V,D): 1.06 manager infusion? SVETLANA indexed to BSA (cm^2/m^2): 0.58 sev ratio: 0.35 MV E max rainer: 125.2 cm/sec MV dec time: 0.20 sec MV A max rainer: 115.0 cm/sec MV E/A: 1.09 Med Peak E' Rainer: 6.5 cm/sec Lat Peak E' Rainer: 7.6 cm/sec E/e' average: 18.0 TR max rainer: 327.7 cm/sec PA mean P.4 mmHg TR max P.0 mmHg PA V2 max: 118.3 cm/sec Electronically signed by: Crystal Haywood M.D. 08/08/2023, 6: 38 PM
[2023-08-08] MEDS: DEXTROSE 5%-0.45% NS 1,000 ML 100 ML IV ×2 (13:46→23:51)
--- NOTE | 2023-08-08 13:46 | PM.HP.1 ---
History of Present Illness History of Present Illness Date Patient Seen: 08/08/23 Time Patient Seen: 13:46 Chief complaint: syncope, sob, chest pain Narrative: 82-year-old female well known to me who presented to the emergency department today after suffering a syncopal spell at home. She was in her shower and next thing she knew she was on the ground and realized later that she had laceration over her I. She had felt so lightheaded and dizzy while in the shower and even prior to getting in the shower this morning. When she did awaken she still felt lightheaded dizzy etcetera. In the ER she was found to be hypertensive as well as having frequent PVCs even runs of ventricular trigeminy. Otherwise ER evaluation was unremarkable including head and neck CT chest x-ray labs including troponin x2 etcetera She was given some metoprolol in the ER which seem to reduce the frequency of her PVCs and had very little effect on her blood pressure Patient reports over the last 2 weeks she had been having these episodes although she did not pass out until today. Has just had a sense of sort of a near-syncope he very much lightheaded some fatigue unsteady on her feet feels better she sits down at times. No real pattern to it she can be doing anything. She is checked her blood pressure it has been sometimes in the 160s or 170s during or after 1 of these episodes and it is also reading her as an irregular heart rate at these times. Patient with a history of neurologic symptoms TIA like or felt to be complicated migraine by Neurology in the past. Those symptoms per patient's seem completely disconnected from what she is experiencing here now [facility] Medical History Chronic gout Chronic renal failure, stage 3a Elevated liver enzymes (~2017) Difficulty swallowing Bilateral breast cancer Cardiac murmur Carotid bruit Hypertension Cholelithiasis (~01/2016) Pancreatitis Gastroesophageal reflux disease (02/07/14) History of malignant neoplasm of breast (08/31/11) Hyperlipidemia (08/31/11) Essential hypertension (08/31/11) Surgical History S/P knee replacement (~06/2019) Hx of bilateral cataract extraction (~10/2018) History of lumpectomy of both breasts History of colonoscopy Hx of tonsillectomy Status post laparoscopic cholecystectomy (04/07/16) Status post appendectomy (~1959) Social History marital status: number of children: 4 household members: none lives independently: Yes caregiver/support person: No housing: house pets and animals: No education level: college occupational status: employed current occupational exposures/hazards: Yes prince/hindu: [employer] travel history: recent leisure activities: exercise and other Smoking Status: Never smoker Tobacco: How many years used: 0 quit status: quit date established second hand exposure: No alcohol intake: current substance use type: does not use Meds Home Medications and Allergies Home Medications Medication Instructions Recorded Confirmed Type cholecalciferol (vitamin D3) 50 50 mcg PO DAILY 03/03/20 08/08/23 History mcg (2,000 unit) capsule ascorbate calcium (vitamin C) 1 cap PO DAILY vitamin 03/19/21 08/08/23 History ibuprofen 200 mg tablet 400 mg PO DAILY Pain 03/19/21 08/08/23 History clonidine HCl 0.2 mg tablet 0.2 mg PO Q4H PRN hypertensive 07/16/21 08/08/23 Rx emergency #60 tabs simvastatin 20 mg tablet 20 mg PO QDAY #90 tabs 06/30/22 08/08/23 Rx lisinopril 40 mg tablet 40 mg PO DAILY #90 tabs 08/15/22 08/08/23 Rx metoprolol succinate 25 mg 25 mg PO DAILY #90 tabs 12/19/22 08/08/23 Rx tablet,extended release 24 hr omeprazole 40 mg capsule,delayed 40 mg PO HS #90 caps 05/04/23 08/08/23 Rx release Allergies Allergy/AdvReac Type Severity Reaction Status Date / Time No Known Drug Allergies Allergy Verified 08/08/23 09:13 Review of Systems Review of Systems ROS: Yes All systems reviewed with the patient and are negative except as otherwise documented Exam Vital Signs (past 8 hours): - 08/08/23 09:10 08/08/23 09:10 08/08/23 09:15 Temperature 98.2 F Pulse Rate 86 91 H 83 Respiratory Rate 17 19 15 Blood Pressure 196/94 H 196/94 H 198/90 H Pulse Oximetry 92 98 Oxygen Delivery Method Room Air Room Air Oxygen Flow Rate 08/08/23 09:30 08/08/23 09:54 08/08/23 09:59 Temperature Pulse Rate 79 76 Respiratory Rate 18 Blood Pressure 176/92 H 186/81 H Pulse Oximetry 98 Oxygen Delivery Method Oxygen Flow Rate 08/08/23 09:59 08/08/23 10:00 08/08/23 10:00 Temperature Pulse Rate 78 81 Respiratory Rate 16 16 Blood Pressure 198/77 H Pulse Oximetry 99 100 Oxygen Delivery Method Oxygen Flow Rate 08/08/23 10:30 08/08/23 10:31 08/08/23 10:31 Temperature Pulse Rate 81 81 Respiratory Rate 20 19 Blood Pressure 194/83 H Pulse Oximetry 100 99 Oxygen Delivery Method Oxygen Flow Rate 08/08/23 11:00 08/08/23 11:01 08/08/23 11:01 Temperature Pulse Rate 74 73 Respiratory Rate 13 18 Blood Pressure 182/74 H Pulse Oximetry 100 99 Oxygen Delivery Method Oxygen Flow Rate 08/08/23 11:25 08/08/23 11:25 08/08/23 11:30 Temperature Pulse Rate 78 Respiratory Rate 15 Blood Pressure 219/88 H 213/88 H Pulse Oximetry 92 Oxygen Delivery Method Oxygen Flow Rate 08/08/23 11:30 08/08/23 12:00 08/08/23 12:01 Temperature Pulse Rate 75 73 Respiratory Rate 21 16 Blood Pressure 187/79 H Pulse Oximetry 99 99 Oxygen Delivery Method Oxygen Flow Rate 08/08/23 12:01 08/08/23 12:30 08/08/23 12:31 Temperature Pulse Rate 73 76 Respiratory Rate 17 23 Blood Pressure 216/88 H Pulse Oximetry 98 99 Oxygen Delivery Method Oxygen Flow Rate 08/08/23 12:31 08/08/23 12:35 08/08/23 12:40 Temperature Pulse Rate 80 85 82 Respiratory Rate 27 H 21 20 Blood Pressure Pulse Oximetry 98 94 99 Oxygen Delivery Method Oxygen Flow Rate 08/08/23 12:45 08/08/23 13:18 Temperature 98.0 F Pulse Rate 79 78 Respiratory Rate 19 20 Blood Pressure 183/81 H 198/82 H Pulse Oximetry 99 98 Oxygen Delivery Method Oxygen Flow Rate 0 Oxygen Delivery Method Room Air Oxygen Flow Rate 0 Narrative Exam Narrative: HEENT-unremarkable Neck-no bruits Lungs-clear Heart-regular rate and rhythm with a sounds like frequent extrasystoles no murmur Abdomen-benign Neuro-alert oriented x3 no focal findings Objective Labs 08/08/23 09:15 08/08/23 09:15 Labs: Laboratory Results - last 24 hr 08/08/23 08/08/23 08/08/23 09:15 10:45 11:20 WBC 8.7 RBC 4.63 Hgb 12.1 Hct 36.7 MCV 79.3 L MCH 26.2 MCHC 33.1 RDW 14.1 Plt Count 208 Neut % (Auto) 70.8 Lymph % (Auto) 16.7 L [place] % (Auto) 7.6 Eos % (Auto) 4.0 Baso % (Auto) 0.9 Neut # (Auto) 6200 Lymph # (Auto) 1500 [place] # (Auto) 700 Eos # (Auto) 300 Baso # (Auto) 100 PT 11.4 INR 1.0 APTT 34 Sodium 139 Potassium 4.3 Chloride 105 Carbon Dioxide 27 BUN 19 H Creatinine 1.24 H Estimated GFR 44 L BUN/Creatinine Ratio 15.3 Glucose 116 H Calcium 9.4 Magnesium 1.8 Total Bilirubin 0.5 AST 21 ALT 18 Alkaline Phosphatase 92 Total Creatine Kinase 45 Troponin I < 0.012 < 0.012 NT-Pro-B Natriuret Pep 819 H Total Protein 7.5 Albumin 4.3 Globulin 3.2 Albumin/Globulin Ratio 1.3 Lipase 125 Urine RBC Urine WBC Ur Squamous Epith Cells Urine Bacteria Ur Culture Indicated? Vol Urine Centrifuged SARS-CoV-2 (PCR) Negative Influenza A (RT-PCR) Flu a negative Influenza B (RT-PCR) Flu b negative RSV (PCR) Negative 08/08/23 11:26 WBC RBC Hgb Hct MCV MCH MCHC RDW Plt Count Neut % (Auto) Lymph % (Auto) [place] % (Auto) Eos % (Auto) Baso % (Auto) Neut # (Auto) Lymph # (Auto) [place] # (Auto) Eos # (Auto) Baso # (Auto) PT INR APTT Sodium Potassium Chloride Carbon Dioxide BUN Creatinine Estimated GFR BUN/Creatinine Ratio Glucose Calcium Magnesium Total Bilirubin AST ALT Alkaline Phosphatase Total Creatine Kinase Troponin I NT-Pro-B Natriuret Pep Total Protein Albumin Globulin Albumin/Globulin Ratio Lipase Urine RBC None seen Urine WBC 5-10/hpf H Ur Squamous Epith Cells 10-30 /hpf H Urine Bacteria Moderate (10-30) H Ur Culture Indicated? Specimen cultured Vol Urine Centrifuged 10ml (spun) SARS-CoV-2 (PCR) Influenza A (RT-PCR) Influenza B (RT-PCR) RSV (PCR) Assessment & Plan Assessment & Plan narrative: 1. Syncopal episode-difficult to know whether this is primary neurologic or cardiac in origin. It frankly sounds bit more cardiac to me even though there was no real sudden nature to it she had some persistent warning with lightheadedness dizziness etcetera. She does have the obvious dysrhythmia. She had an echocardiogram done in 2019 that was essentially unremarkable She needs continued cardiac monitoring here in the hospital on probably an extended period as an outpatient as well to look for dysrhythmia has a source of her symptoms. She needs repeat echocardiography. This point without further neurologic symptoms I am not inclined to repeat advanced imaging of her brain, e.g. MRI of her brain, but if she has any additional neurologic symptoms that would be an option Continue her on higher dose beta blockade. She takes metoprolol succinate 25 mg daily on a routine basis she probably needs a higher dose to help control blood pressure and her dysrhythmia more carefully 2. Hypertension-continue patient's usual medications although increase dose metoprolol as above 3. Chronic renal failure stage 3 a-numbers appear to be stable. No changes at this time 4. VTE prophylaxis-SCDs for now. I am going to hold off on chemo prophylaxis until we have a better idea of what her clinical course looks like specially with recent fall and laceration above the eye etcetera 5. Code status-patient appropriate for full code in the event of a sudden cardiac or respiratory arrest which is not anticipated at this time. Patient is in agreement.
--- NOTE | 2023-08-08 14:08 | PC.NURSE ---
Pt to room 205 via w/c from ER. Pt denies pain, nausea, shortness of breath, dizziness, or chest pain at this time. Pt to br to void with sba. Pt oriented to room, call light, bed controls, and tv controls. Bed alarm on for safety for fall today. Pt agrees to call for assistance as needed.
[2023-08-08] MEDS: ATORVASTATIN 20 MG TABLET 10 MG PO (21:16)
[2023-08-08] MEDS: PANTOPRAZOLE DR 40 MG TABLET PO (21:16)
[2023-08-08] MEDS: ACETAMINOPHEN 325 MG TABLET 650 MG PO (23:54)
[2023-08-09 04:36] VITALS: BP 156/59; PULSE 73; RESP 18; TEMP 36.4; O2SAT 99
[2023-08-09 08:00] VITALS: BP 159/60; PULSE 74; RESP 16; TEMP 36.4; O2SAT 99
[2023-08-09 08:22] VITALS: BP 156/86
[2023-08-09] MEDS: lisinopriL 20 MG TABLET 40 MG PO (08:22)
[2023-08-09 08:24] VITALS: BP 156/86
[2023-08-09] MEDS: METOPROLOL ER 50 MG TABLET 75 MG PO (08:24)
--- NOTE | 2023-08-09 09:30 | P.DS_ITS ---
History of Present Illness History of Present Illness Date Patient Seen: 08/09/23 Time Patient Seen: 09:31 Chief complaint: syncope, sob, chest pain Narrative: 82-year-old female well known to me who presented to the emergency department today after suffering a syncopal spell at home. She was in her shower and next thing she knew she was on the ground and realized later that she had laceration over her I. She had felt so lightheaded and dizzy while in the shower and even prior to getting in the shower this morning. When she did awaken she still felt lightheaded dizzy etcetera. In the ER she was found to be hypertensive as well as having frequent PVCs even runs of ventricular trigeminy. Otherwise ER evaluation was unremarkable including head and neck CT chest x-ray labs including troponin x2 etcetera She was given some metoprolol in the ER which seem to reduce the frequency of her PVCs and had very little effect on her blood pressure Patient reports over the last 2 weeks she had been having these episodes although she did not pass out until today. Has just had a sense of sort of a near-syncope he very much lightheaded some fatigue unsteady on her feet feels better she sits down at times. No real pattern to it she can be doing anything. She is checked her blood pressure it has been sometimes in the 160s or 170s during or after 1 of these episodes and it is also reading her as an irregular heart rate at these times. Patient with a history of neurologic symptoms TIA like or felt to be complicated migraine by Neurology in the past. Those symptoms per patient's seem completely disconnected from what she is experiencing here now Discharge Providers Provider Date of admission: 08/08/23 12:29 Discharge Date: 08/09/23 Primary care physician: Andrew Gonzalez MD Discharge provider: Andrew Gonzalez MD Summary Hospital Course Discharge Diagnosis: 1. Syncope 2. Frequent PVCs including runs of bigeminy and trigeminy 3. Aortic stenosis, moderate 4. Hypertension 5. Chronic renal failure stage 3 a 6. Migraine, chronic Hospital Course: Patient was admitted as noted above. She would continued demonstrate frequent PVCs although somewhat decreased frequency of the time of her hospitalization. Her beta-armando dose was increased and was felt as though the increased beta armando helped reduce the frequency of the PVCs. No other significant or serious dysrhythmias were identified on telemetry Echocardiography was remarkable for new moderate aortic stenosis but otherwise was normal with normal left ventricular function etcetera. Patient within several hours of admission felt much better up on her feet no longer lightheaded or dizzy. Blood pressure came down nicely. Therefore patient was felt to be stable for discharge with careful close outpatient follow-up Status at Discharge Cognitive/behavioral status at discharge: oriented Functional status at discharge: independent ambulation Overall status at discharge: patient is back to baseline Time Spent with Patient Time spent: Less than 30 minutes Exam Vital Signs (past 8 hours): - 08/09/23 04:36 08/09/23 08:00 08/09/23 08:22 Temperature 97.6 F 97.5 F L Pulse Rate 73 74 Respiratory Rate 18 16 Blood Pressure 156/59 H 159/60 H 156/86 H Pulse Oximetry 99 99 Oxygen Flow Rate 0 0 08/09/23 08:24 Temperature Pulse Rate Respiratory Rate Blood Pressure 156/86 H Pulse Oximetry Oxygen Flow Rate Oxygen Delivery Method Room Air Oxygen Flow Rate 0 Objective Labs 08/08/23 09:15 08/08/23 09:15 Labs: Laboratory Results - last 24 hr 08/08/23 08/08/23 08/08/23 09:15 10:45 11:20 PT 11.4 INR 1.0 APTT 34 Sodium 139 Potassium 4.3 Chloride 105 Carbon Dioxide 27 BUN 19 H Creatinine 1.24 H Estimated GFR 44 L BUN/Creatinine Ratio 15.3 Glucose 116 H Calcium 9.4 Magnesium 1.8 Total Bilirubin 0.5 AST 21 ALT 18 Alkaline Phosphatase 92 Total Creatine Kinase 45 Troponin I < 0.012 < 0.012 NT-Pro-B Natriuret Pep 819 H Total Protein 7.5 Albumin 4.3 Globulin 3.2 Albumin/Globulin Ratio 1.3 Lipase 125 Urine RBC Urine WBC Ur Squamous Epith Cells Urine Bacteria Ur Culture Indicated? Vol Urine Centrifuged SARS-CoV-2 (PCR) Negative Influenza A (RT-PCR) Flu a negative Influenza B (RT-PCR) Flu b negative RSV (PCR) Negative 08/08/23 11:26 PT INR APTT Sodium Potassium Chloride Carbon Dioxide BUN Creatinine Estimated GFR BUN/Creatinine Ratio Glucose Calcium Magnesium Total Bilirubin AST ALT Alkaline Phosphatase Total Creatine Kinase Troponin I NT-Pro-B Natriuret Pep Total Protein Albumin Globulin Albumin/Globulin Ratio Lipase Urine RBC None seen Urine WBC 5-10/hpf H Ur Squamous Epith Cells 10-30 /hpf H Urine Bacteria Moderate (10-30) H Ur Culture Indicated? Specimen cultured Vol Urine Centrifuged 10ml (spun) SARS-CoV-2 (PCR) Influenza A (RT-PCR) Influenza B (RT-PCR) RSV (PCR) [facility] Medical History Aortic stenosis (~07/2023) Chronic gout Chronic renal failure, stage 3a Elevated liver enzymes (~2017) Difficulty swallowing Bilateral breast cancer Cardiac murmur Carotid bruit Hypertension Cholelithiasis (~01/2016) Pancreatitis Gastroesophageal reflux disease (02/07/14) History of malignant neoplasm of breast (08/31/11) Hyperlipidemia (08/31/11) Essential hypertension (08/31/11) Surgical History S/P knee replacement (~06/2019) Hx of bilateral cataract extraction (~10/2018) History of lumpectomy of both breasts History of colonoscopy Hx of tonsillectomy Status post laparoscopic cholecystectomy (04/07/16) Status post appendectomy (~1958) Social History marital status: number of children: 4 household members: none lives independently: Yes caregiver/support person: No housing: house pets and animals: No education level: college occupational status: employed current occupational exposures/hazards: Yes prince/yazidi: [employer] travel history: recent leisure activities: exercise and other Smoking Status: Never smoker Tobacco: How many years used: 0 quit status: quit date established second hand exposure: No alcohol intake: current substance use type: does not use Discharge Assessment & Plan Assessment and Plan Plan of Treatment: Discharge home on increased dose of long-acting metoprolol Plan for outpatient 2 week assistant laboratory director Close follow-up in clinic with Dr. Gonzalez Discharge Plan Discharge Plan Patient Disposition: Home Discharge orders & Medications Prescriptions: New metoprolol succinate 25 mg tablet extended release 24 hr 75 mg PO DAILY Qty: 270 3RF Continued simvastatin 20 mg tablet 20 mg PO QDAY Qty: 90 3RF lisinopril 40 mg tablet 40 mg PO DAILY Qty: 90 3RF omeprazole 40 mg capsule,delayed release(DR/EC) 40 mg PO HS Qty: 90 3RF cholecalciferol (vitamin D3) 50 mcg (2,000 unit) capsule 50 mcg PO DAILY ibuprofen 200 mg tablet 400 mg PO DAILY ascorbate calcium (vitamin C) 1 cap PO DAILY clonidine HCl 0.2 mg tablet 0.2 mg PO Q4H PRN (Reason: hypertensive emergency) Qty: 60 5RF Rx Instructions: Only instructed to take if BP exceeds/is 200 Discontinued metoprolol succinate 25 mg tablet extended release 24 hr 25 mg PO DAILY Qty: 90 3RF Patient Comments: got a dose in the ER Rx Instructions: takes in the evening Follow up/Referrals: Andrew Gonzalez MD [Primary Care Provider] - 1 Week Discharge Health Status Multidrug resistant organism: No MDRO Diet/Activity/Treatments Diet: Diet as Tolerated Visit Report/Discharge Packet Stand Alone Forms: Patient Portal/API, Stroke Signs & Symptoms Discharge Data Primary Care Provider: Andrew Gonzalez Attending Provider: Andrew Gonzalez Admit Date/Time: 08/08/23 12:29 Quality VTE Deep Vein Thrombosis/Pulmonary Embolism Present on Admission: No
--- NOTE | 2023-08-09 10:52 | PC.NURSE ---
Pt is dressed and ready for discharge home with friend Kannan. IV and tele have been removed. Went over d/c instructions with Pt-discussed d/c meds, time of last dose, reviewed stroke education, reminded Pt to get up slowly from bed or chair to prevent dizziness and to consider putting a small stool in the shower or in the bathroom for resting if she does become dizzy. Encouraged Pt to drink plenty of fluids to prevent constipation or dehydration and to follow up with Dr. Gonzalez in 1 week as recommended. Pt denied further questions and was taken out via w/c by SURVEILLANCE INSPECTOR to POV with friend and all belongings.
--- NOTE | 2023-08-09 10:55 | CM.DANOTE ---
DCP Assessment Note Pt is a 82yo F, resident [facility], presented following a syncopal episode in the shower. Pt lives alone. PCP: Andrew Gonzalez [facility] Reviewed chart and team rounds for pt's medical status and discharge needs. GRANITE SETTER met w/patient and RN, Qing, at bedside; introduced self and role. Pt was found alert and oriented, sitting up in chair, was in the process of obtaining discharge education from RN. GRANITE SETTER discussed discharge plans, pt was agreeable to plan and eager to discharge home. Pt reports while she lives alone and is still adjusting to being retired (worked for 18 years at [employer]), she has a large support network of friends. Plan: Pt has discharge orders for 3.13 and declined any discharge needs at this time. Pt's friend will be transporting her home. CM team following for impending needs until discharge. TAYLOR Salmeron Discharge Planning/Care Management CM Discharge Assessment Start: 08/09/23 10:51 Freq: Status: Active Protocol: Document 08/09/23 10:51 MW (Rec: 08/09/23 10:55 MW [id number]) Discharge Planning Assessment Assigned Machine Inspector TYALOR Keating DPOA/Assigned Designee Name Adonis Son [Lives in [place]] Contact Information [phone] Advance Directives? Yes Advance Directives on File Yes History Provided By Patient,Medical Record Expected Length of Stay 1 Has Patient been admitted in last 30 No days? Prior Living Arrangements House Household Members none Type of transporation used prior to Drives own vehicle admit Independent with ADL's Yes Is patient alert and oriented? Yes Caregiver for Another No Barriers to Discharge No Discharge Plan Home Transportation Arrangement Friend Referrals Initiated None needed Whiteboard Updated in Patient Room with Yes name and ext. # of Machine Inspector Please Provide Date Initial DC 08/09/23 Assessment Was Performed Next Review Type Continued Stay Review
== END 2023-08-09 10:59 | disposition home or self-care (01) ==
LOC: ED 12:15 → AC 12:30
PROVIDERS: Admitting Provider Internal Medicine; Emergency Provider Emergency Medicine; PCP Internal Medicine; Referring Provider Emergency Medicine; Visit Provider Internal Medicine
DX: R55 Syncope and collapse (principal); R06.02 Shortness of breath; R07.9 Chest pain, unspecified; I49.3 Ventricular premature depolarization; S01.112A Laceration without foreign body of left eyelid and periocular area, initial encounter; W18.39XA Other fall on same level, initial encounter; Y92.012 Bathroom of single-family (private) house as the place of occurrence of the external cause; I35.0 Nonrheumatic aortic (valve) stenosis; I12.9 Hypertensive chronic kidney disease with stage 1 through stage 4 chronic kidney disease, or unspecified chronic kidney disease; N18.31 Chronic kidney disease, stage 3a
CPT/HCPCS: 0241U; 12011; 36415; 70450; 71045; 72125; 80053; 81003; 81015; 82550; 83690; 83735; 83880; 84484; 85025; 85610; 85730; 87086; 93005; 93010; 93306; 96360; 96361; 99222; 99238; 99285; G0378

== ENCOUNTER → 2023-08-17 09:46 | Outpatient (CLI) | payer MEDICARE, SELFPAY ==
[2023-08-08 13:18] VITALS: BMI 26.6
== END ==
PROVIDERS: PCP Internal Medicine; Referring Provider Internal Medicine; Visit Provider Internal Medicine
DX: R55 Syncope and collapse (principal)
CPT/HCPCS: 93246

== ENCOUNTER 2023-10-19 05:37 | Emergency (ER) | payer MEDICARE, SELFPAY ==
[2023-08-08 13:18] VITALS: BMI 26.6
[2023-10-19] VITALS (18 sets, daily range): BP systolic 129–190; BP diastolic 62–83; PULSE 69–91; RESP 12–23; TEMP 36.7–36.9; O2SAT 97–100; BMI 26.1
--- NOTE | 2023-10-19 05:39 | DI.RAD.S_ITS ---
PROCEDURE: XR CHEST 1V INDICATIONS: chest pain TECHNIQUE: One view of the chest was acquired. COMPARISON: [facility], , XR CHEST 1V, 08/08/2023, 9:16. [facility], , CHEST 2 VIEW, 01/07/2014, 10:13. FINDINGS: Surgical changes and devices: Surgical clips are seen in the left breast and left axilla and projecting over the right chest. Electronic device projects over the left chest. Lungs and pleura: Lungs are clear. No pleural effusions or pneumothorax. Mediastinum: Mediastinal contours appear normal. Heart size is normal. Bones and chest wall: No suspicious bony lesions. Overlying soft tissues appear unremarkable. IMPRESSION: No acute cardiopulmonary abnormality is seen. Approved by: Bayron Moreno M.D. on 10/19/2023 at 8:04
--- NOTE | 2023-10-19 06:20 | ED.CHESTPAIN ---
HPI - Chest Pain <Froylan Gilliam DO - Last Filed: 10/19/23 18:32> General Chief Complaint: Chest Pain Stated Complaint: cardic patient, having chest pains Time Seen by Provider: 10/19/23 05:39 Source: patient Mode of arrival: Ambulatory Limitations: no limitations History of Present Illness HPI narrative: Patient is an 83-year-old female. Has a history of frequent PVCs. Is currently wearing a ZIO patch. Also has a history of moderate aortic stenosis. She states there also has been some talk about a pacemaker. She has not on anticoagulation. Has never had heart attack. Does have history of high blood pressure. States that last evening she started to develop some chest pressure. She woke up at 0300 hours in the morning in the pressure was still there she thinks that it has been worsening since that time. Also having some shortness of breath. When she woke up at 0300 hours in the morning she stated that she was covered in sweat. She did take a baby aspirin last evening but nothing this morning. She was never had a stress test. Pain is not worse with palpation or movement Related Data Home Medications Medication Instructions Recorded Confirmed cholecalciferol (vitamin D3) 50 50 mcg PO DAILY 03/03/20 08/15/23 mcg (2,000 unit) capsule ascorbate calcium (vitamin C) 1 cap PO DAILY vitamin 03/19/21 08/15/23 ibuprofen 200 mg tablet 400 mg PO DAILY Pain 03/19/21 08/15/23 Previous Rx's Medication Instructions Recorded clonidine HCl 0.2 mg tablet 0.2 mg PO Q4H PRN hypertensive 07/16/21 emergency #60 tabs simvastatin 20 mg tablet 20 mg PO QDAY #90 tabs 06/30/22 omeprazole 40 mg capsule,delayed 40 mg PO HS #90 caps 05/04/23 release metoprolol succinate 25 mg 75 mg (3 x 25 mg) PO DAILY #270 08/09/23 tablet,extended release 24 hr tabs lisinopril 40 mg tablet 40 mg PO DAILY #90 tabs 09/08/23 Allergies Allergy/AdvReac Type Severity Reaction Status Date / Time No Known Drug Allergies Allergy Verified 08/15/23 13:52 Review of Systems <DO Donya Castillo Last Filed: 10/19/23 18:32> Review of Systems ROS Unobtainable: All systems reviewed & are unremarkable except as noted in HPI and below Patient History <Froylan Gilliam DO - Last Filed: 10/19/23 18:32> Medical History Aortic stenosis (~07/2023) Chronic gout Chronic renal failure, stage 3a Elevated liver enzymes (~2017) Difficulty swallowing Bilateral breast cancer Cardiac murmur Carotid bruit Hypertension Cholelithiasis (~01/2016) Pancreatitis Gastroesophageal reflux disease (02/07/14) History of malignant neoplasm of breast (08/31/11) Hyperlipidemia (08/31/11) Essential hypertension (08/31/11) Surgical History S/P knee replacement (~06/2019) Hx of bilateral cataract extraction (~10/2018) History of lumpectomy of both breasts History of colonoscopy Hx of tonsillectomy Status post laparoscopic cholecystectomy (04/07/16) Status post appendectomy (~1958) Social History marital status: number of children: 4 household members: none lives independently: Yes caregiver/support person: No housing: house pets and animals: No education level: college occupational status: employed current occupational exposures/hazards: Yes prince/yarsani: Evangelical travel history: recent leisure activities: exercise and other Smoking Status: Never smoker Tobacco: How many years used: 0 quit status: quit date established second hand exposure: No alcohol intake: current substance use type: does not use Smoking Status: Never smoker alcohol intake frequency: holidays/special occasions only Substance Use Type: does not use Exam <Froylan Gilliam DO - Last Filed: 10/19/23 18:32> Initial Vital Signs Initial Vital Signs: Vital Signs Temperature 98.1 F 10/19/23 05:45 Pulse Rate 91 H 10/19/23 05:45 Respiratory Rate 18 10/19/23 05:45 Blood Pressure 190/83 H 10/19/23 05:45 Pulse Oximetry 99 10/19/23 05:45 Oxygen Delivery Method Room Air 10/19/23 05:45 Const General: cooperative, comfortable and No ill appearing HENMT Head: normal to inspection and normocephalic Resp Effort & Inspection: normal respiratory effort Auscultation: clear to auscultation bilaterally Cardio Rate: regular rate Rhythm: regular rhythm Heart Sounds: murmur GI Inspection: normal to inspection Skin General: no rashes or lesions noted Neuro General: patient alert, patient awake, patient oriented x3 and moves all extremities Extrem General: capillary refill normal <Jackeline Fraire, DO - Last Filed: 10/19/23 09:40> Initial Vital Signs Initial Vital Signs: Vital Signs Temperature 98.1 F 10/19/23 05:45 Pulse Rate 91 H 10/19/23 05:45 Respiratory Rate 18 10/19/23 05:45 Blood Pressure 190/83 H 10/19/23 05:45 Pulse Oximetry 99 10/19/23 05:45 Oxygen Delivery Method Room Air 10/19/23 05:45 Course <Froylan Gilliam DO - Last Filed: 10/19/23 18:32> Orders Ordered: Discontinued Medications Aspirin (Aspirin 81 Mg Chew Tab) 324 mg PO NOW ONE Stop: 10/19/23 06:10 Last Admin: 10/19/23 06:24 Dose: 324 mg Documented By: MIRA Nitroglycerin (Nitroglycerin 0.4 Mg Sl Tab) 0.4 mg SL [id number] PRN PRN Reason: Chest Pain Last Admin: 10/19/23 06:40 Dose: 0.4 mg Documented By: Admin: 10/19/23 06:33 Dose: 0.4 mg Documented By: Admin: 10/19/23 06:27 Dose: 0.4 mg Documented By: MIRA Vital Signs Vital signs: Vital Signs - 8 hr 10/19/23 05:45 10/19/23 05:49 10/19/23 06:00 Temperature 98.1 F Pulse Rate 91 H 84 81 Respiratory Rate 18 21 22 Blood Pressure 190/83 H Pulse Oximetry 99 100 99 Oxygen Delivery Method Room Air Room Air 10/19/23 06:23 10/19/23 06:23 10/19/23 06:27 Temperature Pulse Rate 80 82 Respiratory Rate 23 Blood Pressure 130/62 130/62 Pulse Oximetry 99 Oxygen Delivery Method 10/19/23 06:30 10/19/23 06:33 10/19/23 06:40 Temperature Pulse Rate 77 79 76 Respiratory Rate 16 Blood Pressure 137/63 140/64 Pulse Oximetry 100 Oxygen Delivery Method Room Air 10/19/23 07:00 10/19/23 07:01 10/19/23 07:01 Temperature Pulse Rate 74 72 Respiratory Rate 15 20 Blood Pressure 130/63 Pulse Oximetry 98 98 Oxygen Delivery Method 10/19/23 07:30 10/19/23 08:00 10/19/23 08:01 Temperature Pulse Rate 69 78 72 Respiratory Rate 18 17 17 Blood Pressure Pulse Oximetry 99 97 98 Oxygen Delivery Method 10/19/23 08:01 10/19/23 08:30 10/19/23 08:30 Temperature Pulse Rate 71 Respiratory Rate 17 Blood Pressure 140/67 129/81 Pulse Oximetry 98 Oxygen Delivery Method 10/19/23 09:00 10/19/23 09:01 10/19/23 09:01 Temperature Pulse Rate 75 89 Respiratory Rate 17 21 Blood Pressure 165/68 H Pulse Oximetry 99 99 Oxygen Delivery Method <Jackeline Fraire DO - Last Filed: 10/19/23 09:40> Orders Ordered: Discontinued Medications Aspirin (Aspirin 81 Mg Chew Tab) 324 mg PO NOW ONE Stop: 10/19/23 06:10 Last Admin: 10/19/23 06:24 Dose: 324 mg Documented By: MIRA Nitroglycerin (Nitroglycerin 0.4 Mg Sl Tab) 0.4 mg SL [id number] PRN PRN Reason: Chest Pain Last Admin: 10/19/23 06:40 Dose: 0.4 mg Documented By: Admin: 10/19/23 06:33 Dose: 0.4 mg Documented By: Admin: 10/19/23 06:27 Dose: 0.4 mg Documented By: MIRA Vital Signs Vital signs: Vital Signs - 8 hr 10/19/23 05:45 10/19/23 05:49 10/19/23 06:00 Temperature 98.1 F Pulse Rate 91 H 84 81 Respiratory Rate 18 21 22 Blood Pressure 190/83 H Pulse Oximetry 99 100 99 Oxygen Delivery Method Room Air Room Air 10/19/23 06:23 10/19/23 06:23 10/19/23 06:27 Temperature Pulse Rate 80 82 Respiratory Rate 23 Blood Pressure 130/62 130/62 Pulse Oximetry 99 Oxygen Delivery Method 10/19/23 06:30 10/19/23 06:33 10/19/23 06:40 Temperature Pulse Rate 77 79 76 Respiratory Rate 16 Blood Pressure 137/63 140/64 Pulse Oximetry 100 Oxygen Delivery Method Room Air 10/19/23 07:00 10/19/23 07:01 10/19/23 07:01 Temperature Pulse Rate 74 72 Respiratory Rate 15 20 Blood Pressure 130/63 Pulse Oximetry 98 98 Oxygen Delivery Method 10/19/23 07:30 10/19/23 08:00 10/19/23 08:01 Temperature Pulse Rate 69 78 72 Respiratory Rate 18 17 17 Blood Pressure Pulse Oximetry 99 97 98 Oxygen Delivery Method 10/19/23 08:01 10/19/23 08:30 10/19/23 08:30 Temperature Pulse Rate 71 Respiratory Rate 17 Blood Pressure 140/67 129/81 Pulse Oximetry 98 Oxygen Delivery Method 10/19/23 09:00 10/19/23 09:01 10/19/23 09:01 Temperature Pulse Rate 75 89 Respiratory Rate 17 21 Blood Pressure 165/68 H Pulse Oximetry 99 99 Oxygen Delivery Method MDM - Chest Pain <Froylan Gilliam, - Last Filed: 10/19/23 18:32> Lab Data 10/19/23 06:56 10/19/23 06:56 Labs: Lab Results 10/19/23 10/19/23 Range/Units 06:56 08:47 WBC 8.6 (4.5-11.0) X10^3/uL RBC 4.86 (4.0-5.2) X10^6/uL Hgb 12.3 (12.0-16.0) g/dL Hct 37.5 (36-46) % MCV 77.2 L (80-100) fL MCH 25.3 L (26-34) PG MCHC 32.7 (30-36) % RDW 15.4 H (11.6-14.8) % Plt Count 168 (150-400) X10^3/uL Neut % (Auto) 67.1 (50-75) % Lymph % (Auto) 18.0 L (25-40) % Jasper % (Auto) 8.3 (3-14) % Eos % (Auto) 5.3 H (2-4) % Baso % (Auto) 1.3 (0-2) % Neut # (Auto) 5800 (4329-8934) /uL Lymph # (Auto) 1600 (6479-5441) /uL Jasper # (Auto) 700 (0-900) /uL Eos # (Auto) 500 H (0-450) /uL Baso # (Auto) 100 (0-100) /uL Sodium 139 (137-145) mmol/L Potassium 4.3 (3.4-5.1) mmol/L Chloride 108 H (98-107) mmol/L Carbon Dioxide 26 (22-32) mmol/L BUN 26 H (7-17) mg/dL Creatinine 1.05 H (0.52-1.04) mg/dL Estimated GFR 53 L (>60) mL/min BUN/Creatinine Ratio 24.8 H (6-22) Glucose 111 H (80-110) mg/dL Calcium 9.5 (8.4-10.2) mg/dL Total Bilirubin 0.5 (0.2-1.3) mg/dL AST 25 (14-36) IU/L ALT 16 (<35) IU/L Alkaline Phosphatase 87 (38-126) U/L Troponin I < 0.012 < 0.012 (0.01-0.034) ng/mL Total Protein 6.7 (6.3-8.2) g/dL Albumin 4.1 (3.5-5.0) g/dL Globulin 2.6 (1.7-4.1) g/dL Albumin/Globulin Ratio 1.6 (1.0-2.8) Lipase 123 (23-300) U/L Imaging Data Chest x-ray: Radiologist's Impression: No acute cardiopulmonary abnormality is identified ECG Data Attestation: I personally reviewed and interpreted this ECG as follows: Interpretation: Sinus rhythm Ventricular rate is 77 Frequent PVCs Left bundle-branch block Normal axis No ST T wave changes MDM Narrative Medical decision making narrative: Patient is having chest discomfort. Has frequent PVCs on her EKG. Chest x-ray is unremarkable. Patient was given an aspirin. He was given nitro. Labs ordered. Care turned over to day provider to follow-up hit disposition. <Jackeline Fraire DO - Last Filed: 10/19/23 09:40> Lab Data Labs: Lab Results 10/19/23 10/19/23 Range/Units 06:56 08:47 WBC 8.6 (4.5-11.0) X10^3/uL RBC 4.86 (4.0-5.2) X10^6/uL Hgb 12.3 (12.0-16.0) g/dL Hct 37.5 (36-46) % MCV 77.2 L (80-100) fL MCH 25.3 L (26-34) PG MCHC 32.7 (30-36) % RDW 15.4 H (11.6-14.8) % Plt Count 168 (150-400) X10^3/uL Neut % (Auto) 67.1 (50-75) % Lymph % (Auto) 18.0 L (25-40) % Jasper % (Auto) 8.3 (3-14) % Eos % (Auto) 5.3 H (2-4) % Baso % (Auto) 1.3 (0-2) % Neut # (Auto) 5800 (4310-8628) /uL Lymph # (Auto) 1600 (5776-8523) /uL Jasper # (Auto) 700 (0-900) /uL Eos # (Auto) 500 H (0-450) /uL Baso # (Auto) 100 (0-100) /uL Sodium 139 (137-145) mmol/L Potassium 4.3 (3.4-5.1) mmol/L Chloride 108 H (98-107) mmol/L Carbon Dioxide 26 (22-32) mmol/L BUN 26 H (7-17) mg/dL Creatinine 1.05 H (0.52-1.04) mg/dL Estimated GFR 53 L (>60) mL/min BUN/Creatinine Ratio 24.8 H (6-22) Glucose 111 H (80-110) mg/dL Calcium 9.5 (8.4-10.2) mg/dL Total Bilirubin 0.5 (0.2-1.3) mg/dL AST 25 (14-36) IU/L ALT 16 (<35) IU/L Alkaline Phosphatase 87 (38-126) U/L Troponin I < 0.012 < 0.012 (0.01-0.034) ng/mL Total Protein 6.7 (6.3-8.2) g/dL Albumin 4.1 (3.5-5.0) g/dL Globulin 2.6 (1.7-4.1) g/dL Albumin/Globulin Ratio 1.6 (1.0-2.8) Lipase 123 (23-300) U/L ECG Data Interpretation: Sinus rhythm Ventricular rate is 77 Frequent PVCs Left bundle-branch block Normal axis No ST T wave changes Yee EKG 2. Sinus rhythm rate 71 frequent PVCs no acute ST changes similar to previous EKGs MDM Narrative Medical decision making narrative: Patient is having chest discomfort. Has frequent PVCs on her EKG. Chest x-ray is unremarkable. Patient was given an aspirin. He was given nitro. Labs ordered. Care turned over to day provider to follow-up hit disposition. Dr. Fraire-patient signed out to me by Dr. Gilliam I have seen evaluated patient myself. She overall appears well and nontoxic. She is frequent PVCs which she has had for some time. She reports that head syncopal episodes back in July in fact she was admitted overnight and monitored. That time she had an increase in her metoprolol from 25-75 mg she then was seen by cardiology who took her back down to 25 mg. She is on her 2nd ZIO patch. She has not had any recurrent episodes of passing out. However yesterday she reports that she had a dull ache in her chest. She constantly feels like flip-flopping she has frequent PVCs as noted on monitoring EKGs she says it yesterday was little bit different. Really nonradiating no significant shortness of breath. She states her blood pressure was hyper last couple of days she is overall feeling better now her blood pressure is 130/70. Records reviewed including admission in July she had an echo new aortic stenosis felt to be moderate level Blood work has been reviewed 2- troponins. CBC shows no anemia or leukocytosis, CMP no MIKE or electrolyte abnormalities normal liver enzymes bilirubin At this time recommend that patient follow up with Cardiology and her PCP. Suspect that she is probably symptomatic from her frequent PACs. 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 Blood work is overall reassuring continue to check blood pressure once daily at home *Continue to take medications as directed *Follow up with your primary care provider in 2-3 days or call [phone] *Return to ER if you should have increasing palpitations passing out chest pain or any new, worsening or concerning symptoms Prescriptions: No Action simvastatin 20 mg tablet 20 mg PO QDAY Qty: 90 3RF omeprazole 40 mg capsule,delayed release(DR/EC) 40 mg PO HS Qty: 90 3RF lisinopril 40 mg tablet 40 mg PO DAILY Qty: 90 3RF cholecalciferol (vitamin D3) 50 mcg (2,000 unit) capsule 50 mcg PO DAILY ibuprofen 200 mg tablet 400 mg PO DAILY ascorbate calcium (vitamin C) 1 cap PO DAILY clonidine HCl 0.2 mg tablet 0.2 mg PO Q4H PRN (Reason: hypertensive emergency) Qty: 60 5RF Rx Instructions: Only instructed to take if BP exceeds/is 200 metoprolol succinate 25 mg tablet extended release 24 hr 75 mg PO DAILY Qty: 270 3RF Referrals: Andrew Gonzalez MD [Primary Care Provider] - Stand Alone Forms: Patient Portal/API
[2023-10-19] MEDS: ASPIRIN 81 MG CHEW TAB 324 MG PO (06:24)
[2023-10-19] MEDS: NITROGLYCERIN 0.4 MG SL TAB SL ×3 (06:27→06:40)
[2023-10-19 07:06] LABS: Add Manual Diff / Slide Review NO; Basophils Absolute Auto 100 /uL (0-100); Basophils Percent Auto 1.3 % (0-2); Eosinophils Absolute Auto 500 /uL (0-450); Eosinophils Percent Auto 5.3 % (2-4); Hematocrit 37.5 % (36-46); Hemoglobin 12.3 g/dL (12.0-16.0); Lymphocytes Absolute Auto 1600 /uL (1100-4500); Mean Corpuscular HGB Conc 32.7 % (30-36); Mean Corpuscular Hemoglobin 25.3 PG (26-34); Mean Corpuscular Volume 77.2 fL (80-100); Monocytes Absolute Auto 700 /uL (0-900); Monocytes Percent Auto 8.3 % (3-14); Neutrophils Absolute Auto 5800 /uL (1500-7000); Neutrophils Percent Auto 67.1 % (50-75); Platelet Count 168 X10^3/uL (150-400); Red Blood Cell Count 4.86 X10^6/uL (4.0-5.2); Red Cell Distribution Width 15.4 % (11.6-14.8); White Blood Cell Count 8.6 X10^3/uL (4.5-11.0)
[2023-10-19 07:19] LABS: Alanine Aminotransferase 16 IU/L (<35); Albumin 4.1 g/dL (3.5-5.0); Albumin Globulin Ratio 1.6 (1.0-2.8); Alkaline Phosphatase 87 U/L (38-126); Aspartate Aminotransferase 25 IU/L (14-36); BUN Creatinine Ratio 24.8 (6-22); Bilirubin Total 0.5 mg/dL (0.2-1.3); Blood Urea Nitrogen 26 mg/dL (7-17); Calcium 9.5 mg/dL (8.4-10.2); Carbon Dioxide 26 mmol/L (22-32); Chloride 108 mmol/L (98-107); Estimated Glomerular Filt Rate 53 mL/min (>60); Globulin 2.6 g/dL (1.7-4.1); Glucose 111 mg/dL (80-110); HEMOLYSIS 20 (0-50); Lipase 123 U/L (23-300); Potassium 4.3 mmol/L (3.4-5.1); Sodium 139 mmol/L (137-145); Total Protein 6.7 g/dL (6.3-8.2)
[2023-10-19 07:29] LABS: Troponin I < 0.012 ng/mL (0.01-0.034)
--- NOTE | 2023-10-19 07:29 | PC.NURSE ---
Intermittent CP; starting last night and got worse. Ongoing palpations/feeling faint--currently wearing a heart monitor. Pt states w/ changing her way of breathing she has been able to control feeling faint. Pt currently denies any cp or discomfort; pt states she is suppose to be getting a pacemaker and has been taking 2 81mg ASA a day.
[2023-10-19 09:20] LABS: Troponin I < 0.012 ng/mL (0.01-0.034)
== END 2023-10-19 09:46 | disposition home or self-care (01) ==
PROVIDERS: Emergency Medicine; Emergency Provider Emergency Medicine; PCP Internal Medicine
DX: I49.3 Ventricular premature depolarization (principal); R07.89 Other chest pain
CPT/HCPCS: 36415; 71045; 80053; 83690; 84484; 85025; 93005; 99284

== ENCOUNTER → 2023-11-16 08:33 | Outpatient (CLI) | payer MEDICARE, SELFPAY ==
[2023-08-08 13:18] VITALS: BMI 26.6
[2023-11-16 09:05] LABS: Hematocrit 39.2 % (36-46); Hemoglobin 12.9 g/dL (12.0-16.0); Mean Corpuscular HGB Conc 32.9 % (30-36); Mean Corpuscular Hemoglobin 25.4 PG (26-34); Mean Corpuscular Volume 77.1 fL (80-100); Platelet Count 208 X10^3/uL (150-400); Red Blood Cell Count 5.08 X10^6/uL (4.0-5.2); Red Cell Distribution Width 15.5 % (11.6-14.8); White Blood Cell Count 9.1 X10^3/uL (4.5-11.0)
[2023-11-16 09:23] LABS: BUN Creatinine Ratio 23.1 (6-22); Blood Urea Nitrogen 25 mg/dL (7-17); Calcium 9.3 mg/dL (8.4-10.2); Carbon Dioxide 22 mmol/L (22-32); Chloride 106 mmol/L (98-107); Estimated Glomerular Filt Rate 52 mL/min (>60); Glucose 117 mg/dL (80-110); HEMOLYSIS < 15 (0-50); Potassium 4.3 mmol/L (3.4-5.1); Sodium 138 mmol/L (137-145)
[2023-11-16 09:29] LABS: NT-proBNP (BNP-Adult 18+) 267 pg/mL (<450)
== END ==
PROVIDERS: PCP Internal Medicine; Referring Provider Internal Medicine Cardiovascular Disease; Visit Provider Internal Medicine Cardiovascular Disease
DX: R06.02 Shortness of breath (principal)
CPT/HCPCS: 36415; 80048; 83880; 85027

== ENCOUNTER → 2023-11-22 15:29 | Outpatient (CLI) | payer MEDICARE, SELFPAY ==
[2023-08-08 13:18] VITALS: BMI 26.6
[2023-11-22 17:39] LABS: Uric Acid 7.7 mg/dL (2.5-6.2)
== END ==
PROVIDERS: PCP Internal Medicine; Referring Provider Internal Medicine Cardiovascular Disease; Visit Provider Internal Medicine Cardiovascular Disease
DX: M10.9 Gout, unspecified (principal)
CPT/HCPCS: 36415; 84550

== ENCOUNTER → 2023-12-18 11:41 | Outpatient (CLI) | payer MEDICARE, SELFPAY ==
[2023-08-08 13:18] VITALS: BMI 26.6
--- NOTE | 2023-12-18 11:43 | DI.MG.S_ITS ---
BILATERAL DIGITAL SCREENING MAMMOGRAM 3D/2D WITH CAD: 12/18/2023 CLINICAL: Routine screening. Personal history of Bilateral Breast Cancer. Comparison is made to exams dated: 11/11/2022 mammogram, 11/10/2021 mammogram, and 11/05/2020 mammogram - [facility]. Both breasts are heterogeneously dense, which may obscure small masses (category c / 51-75% glandular tissue). Current study was also evaluated with a Computer Aided Detection (CAD) system. There are benign post operative findings in both breasts. No significant masses, calcifications, or other findings are seen in either breast. There has been no significant interval change. IMPRESSION: BENIGN There is no mammographic evidence of malignancy. A 1 year screening mammogram is recommended. This exam was interpreted at Station ID: [id number]. NOTE: For mammograms, a report in lay terms will be sent to the patient. Approximately 15% of breast malignancies will not be visualized mammographically. In the management of a palpable breast mass, a negative mammogram must not discourage biopsy of a clinically suspicious lesion. Electronically Signed By: Jessica Yee M.D., Ph.D. nelsy/samantha:12/18/2023 15:39:16 letter sent: Normal Exam ACR BI-RADS Category 2: Benign Finding(s) 3342F
== END ==
PROVIDERS: PCP Internal Medicine; Referring Provider Internal Medicine; Visit Provider Internal Medicine
DX: Z12.31 Encounter for screening mammogram for malignant neoplasm of breast (principal); Z85.3 Personal history of malignant neoplasm of breast; R92.333 Mammographic heterogeneous density, bilateral breasts
CPT/HCPCS: 77063; 77067

== ENCOUNTER → 2024-05-03 08:52 | Outpatient (CLI) | payer MEDICARE, SELFPAY ==
[2023-08-08 13:18] VITALS: BMI 26.6
[2024-05-03 09:42] LABS: Hematocrit 28.7 % (36-46); Hemoglobin 9.5 g/dL (12.0-16.0); Mean Corpuscular Hemoglobin 26.9 PG (26-34); Mean Corpuscular Volume 81.7 fL (80-100); Platelet Count 239 X10^3/uL (150-400); Red Blood Cell Count 3.52 X10^6/uL (4.0-5.2); White Blood Cell Count 7.9 X10^3/uL (4.5-11.0)
[2024-05-03 11:02] LABS: BUN Creatinine Ratio 23.9 (6-22); Blood Urea Nitrogen 43 mg/dL (7-17); Calcium 9.9 mg/dL (8.4-10.2); Carbon Dioxide 23 mmol/L (22-32); Chloride 108 mmol/L (98-107); Cholesterol 180 mg/dL (140-199); Estimated Glomerular Filt Rate 28 mL/min (>60); Glucose 95 mg/dL (80-110); HDL Cholesterol 41 mg/dL (40-60); HEMOLYSIS < 15 (0-50); LDL Cholesterol Calculated 103 mg/dL (<100); Potassium 5.3 mmol/L (3.4-5.1); Sodium 139 mmol/L (137-145); Triglycerides 180 mg/dL (35-150); Uric Acid 8.7 mg/dL (2.5-6.2)
== END ==
PROVIDERS: PCP Internal Medicine; Referring Provider Internal Medicine Cardiovascular Disease; Visit Provider Internal Medicine Cardiovascular Disease
DX: E78.5 Hyperlipidemia, unspecified (principal); I50.32 Chronic diastolic (congestive) heart failure; M10.9 Gout, unspecified
CPT/HCPCS: 36415; 80048; 80061; 84550; 85027

== ENCOUNTER → 2024-05-07 15:08 | Outpatient (CLI) | payer MEDICARE, SELFPAY ==
[2023-08-08 13:18] VITALS: BMI 26.6
[2024-05-07 17:46] LABS: Hematocrit 28.7 % (36-46); Hemoglobin 9.4 g/dL (12.0-16.0); Mean Corpuscular HGB Conc 32.8 % (30-36); Mean Corpuscular Hemoglobin 26.5 PG (26-34); Mean Corpuscular Volume 80.7 fL (80-100); Platelet Count 239 X10^3/uL (150-400); Red Blood Cell Count 3.56 X10^6/uL (4.0-5.2); Red Cell Distribution Width 14.6 % (11.6-14.8); White Blood Cell Count 9.7 X10^3/uL (4.5-11.0)
[2024-05-07 18:01] LABS: Reticulocyte Count, Percent 1.9 % (1.1-2.6)
[2024-05-07 20:10] LABS: Neutrophils Absolute Manual 6790 /uL (3000-5900); RBC Morphology Normal Morphology; Total Cells Counted 100
[2024-05-07 21:12] LABS: Lactate Dehydrogenase 187 U/L (120-246)
[2024-05-07 21:15] LABS: HEMOLYSIS < 15 (0-50); Iron 18 ug/dL (37-170)
[2024-05-07 21:43] LABS: Carcinoembryonic Antigen 0.9 ng/mL (0.1-3.0)
[2024-05-07 21:47] LABS: Ferritin 32 ng/mL (11-264)
[2024-05-07 21:49] LABS: Percent Iron Saturation 5 % (15-50); Total Iron Binding Capacity 329 ug/dL (265-497); Transferrin 307 mg/dL (206-381)
[2024-05-07 21:55] LABS: TSH w/ Reflex to FT4 1.85 uIU/mL (0.47-4.68)
[2024-05-07 22:31] LABS: Folate 7.6 ng/mL (2.76-20.0)
[2024-05-07 23:02] LABS: Vitamin B12 435 pg/mL (239-931)
[2024-05-09 03:36] LABS: Haptoglobin 406 mg/dL (41-333)
== END ==
LOC: LAB 15:09
PROVIDERS: PCP Internal Medicine; Referring Provider Internal Medicine; Visit Provider Internal Medicine
DX: D64.9 Anemia, unspecified (principal); C18.9 Malignant neoplasm of colon, unspecified
CPT/HCPCS: 36415; 82378; 82607; 82668; 82728; 82746; 83010; 83540; 83550; 83615; 84443; 85025; 85045

== ENCOUNTER → 2024-06-20 13:03 | Outpatient (CLI) | payer MEDICARE, SELFPAY ==
[2023-08-08 13:18] VITALS: BMI 26.6
[2024-06-20 13:26] LABS: Add Manual Diff / Slide Review NO; Basophils Absolute Auto 100 /uL (0-100); Basophils Percent Auto 0.8 % (0-2); Eosinophils Absolute Auto 400 /uL (0-450); Eosinophils Percent Auto 4.2 % (2-4); Hematocrit 34.6 % (36-46); Hemoglobin 11.3 g/dL (12.0-16.0); Lymphocytes Absolute Auto 1400 /uL (1100-4500); Lymphocytes Percent Auto 15.1 % (25-40); Mean Corpuscular HGB Conc 32.6 % (30-36); Mean Corpuscular Hemoglobin 25.6 PG (26-34); Mean Corpuscular Volume 78.4 fL (80-100); Monocytes Absolute Auto 1100 /uL (0-900); Monocytes Percent Auto 11.2 % (3-14); Neutrophils Absolute Auto 6500 /uL (1500-7000); Neutrophils Percent Auto 68.7 % (50-75); Platelet Count 231 X10^3/uL (150-400); Red Blood Cell Count 4.41 X10^6/uL (4.0-5.2); Red Cell Distribution Width 17.1 % (11.6-14.8); White Blood Cell Count 9.4 X10^3/uL (4.5-11.0)
[2024-06-20 13:48] LABS: HEMOLYSIS < 15 (0-50); Iron 92 ug/dL (37-170)
[2024-06-20 13:54] LABS: Alanine Aminotransferase 22 IU/L (<35); Albumin 4.5 g/dL (3.5-5.0); Albumin Globulin Ratio 1.8 (1.0-2.8); Alkaline Phosphatase 75 U/L (38-126); Aspartate Aminotransferase 27 IU/L (14-36); BUN Creatinine Ratio 22.8 (6-22); Bilirubin Total 0.3 mg/dL (0.2-1.3); Blood Urea Nitrogen 36 mg/dL (7-17); Calcium 9.6 mg/dL (8.4-10.2); Carbon Dioxide 24 mmol/L (22-32); Chloride 105 mmol/L (98-107); Estimated Glomerular Filt Rate 33 mL/min (>60); Globulin 2.5 g/dL (1.7-4.1); Glucose 86 mg/dL (80-110); HEMOLYSIS < 15 (0-50); Sodium 138 mmol/L (137-145)
[2024-06-20 13:59] LABS: Percent Iron Saturation 27 % (15-50); Total Iron Binding Capacity 344 ug/dL (265-497); Transferrin 338 mg/dL (206-381)
== END ==
PROVIDERS: PCP Internal Medicine; Referring Provider Internal Medicine; Visit Provider Internal Medicine
DX: D50.9 Iron deficiency anemia, unspecified (principal)
CPT/HCPCS: 36415; 80053; 83540; 83550; 85025

== ENCOUNTER → 2024-07-25 09:54 | Outpatient (CLI) | payer MEDICARE, SELFPAY ==
[2023-08-08 13:18] VITALS: BMI 26.6
[2024-07-25 11:06] LABS: Add Manual Diff / Slide Review NO; Basophils Absolute Auto 100 /uL (0-100); Basophils Percent Auto 0.8 % (0-2); Eosinophils Absolute Auto 300 /uL (0-450); Eosinophils Percent Auto 3.9 % (2-4); Hematocrit 38.3 % (36-46); Hemoglobin 12.1 g/dL (12.0-16.0); Lymphocytes Absolute Auto 1100 /uL (1100-4500); Lymphocytes Percent Auto 13.2 % (25-40); Mean Corpuscular HGB Conc 31.7 % (30-36); Mean Corpuscular Volume 78.9 fL (80-100); Monocytes Absolute Auto 800 /uL (0-900); Monocytes Percent Auto 9.1 % (3-14); Neutrophils Absolute Auto 6400 /uL (1500-7000); Platelet Count 219 X10^3/uL (150-400); Red Blood Cell Count 4.85 X10^6/uL (4.0-5.2); Red Cell Distribution Width 17.5 % (11.6-14.8); White Blood Cell Count 8.7 X10^3/uL (4.5-11.0)
[2024-07-25 11:21] LABS: HEMOLYSIS < 15 (0-50); Iron 63 ug/dL (37-170)
[2024-07-25 11:34] LABS: Percent Iron Saturation 19 % (15-50); Total Iron Binding Capacity 327 ug/dL (265-497); Transferrin 315 mg/dL (206-381)
== END ==
PROVIDERS: PCP Internal Medicine; Referring Provider Internal Medicine; Visit Provider Internal Medicine
DX: D50.9 Iron deficiency anemia, unspecified (principal)
CPT/HCPCS: 36415; 83540; 83550; 85025

== ENCOUNTER → 2024-08-28 09:13 | Outpatient (CLI) | payer MEDICARE, SELFPAY ==
[2023-08-08 13:18] VITALS: BMI 26.6
--- NOTE | 2024-08-28 09:14 | DI.ECHO.S_ITS ---
[place] +---------+ [facility] : : [address] : [address] : : [id number] : : Phone: [phone] Echocardiogram Report + + :Name: JORDAN GONSALVES Study Date: 08/28/2024 Height: 66.5 in: :[facility] ReadingLocation: Weight: 169 lb : : Gender: Female BSA: 1.9 m2 : :: 1940 Age: 83 yrs BP: 160/70 mmHg: :Reason For Study: AORTIC VALVE STENOSIS : :Ordering Physician: DIANA, : :GERARD Performed By: Laura Anguiano : :Referring: GERARD MONTIEL : + + Interpretation Summary 1) Normal left ventricular thickness, size, wall motion, and systolic function (EF 60-65%). 2) Normal right ventricular size and function. 3) There is mild mitral stenosis (mean inflow gradient is 4.7 mmHg). 4) There is moderate mitral regurgitation. 5) There is moderate aortic stenosis (valve area 0.9cm2, mean gradient 38mmHg, severity ratio 0.31). 6) There is mild to moderate aortic regurgitation. 7) There is moderate tricuspid regurgitation. 8) The right ventricular systolic pressure is estimated to be at least 61 mmHg based on an estimated right atrial pressure of 3 mm Hg. 9) Compared to the Echo done 08/08/2023, mitral regurgitation has increased from mild-moderate to moderate on this study. Procedure: A two-dimensional transthoracic echocardiogram with color flow and Doppler was performed. The study quality was technically adequate. Comparison is made with the echocardiogram of 08/08/2023. The heart rate ranged between 60-71 bpm during the study. Left Ventricle: The left ventricle is normal in size and wall thickness. The ejection fraction is estimated to be 60-65%. Left ventricular systolic function appears normal without focal wall motion abnormalities. Right Ventricle: The right ventricle is normal in size and function. Atria: The left atrium is moderately dilated. Right atrial size is normal. There is no Doppler evidence for an interatrial shunt. Mitral Valve: The mitral valve leaflets are mildly calcified. There is mild to moderate mitral annular calcification. The mitral valve mean gradient is 4.7 mmHg. There is mild mitral stenosis. There is moderate mitral regurgitation. Aortic Valve: The aortic valve is trileaflet. The aortic valve is severely calcified. The peak aortic velocity is 4.07 m/sec. The aortic valve mean gradient is 38 mmHg. The calculated aortic valve area is 0.9 cm2. There is moderate aortic stenosis. There is mild to moderate aortic regurgitation. Tricuspid Valve: The tricuspid valve leaflets are thin and pliable. There is moderate tricuspid regurgitation. The right ventricular systolic pressure is estimated to be at least 61 mmHg based on an estimated right atrial pressure of 3 mm Hg. Pulmonic Valve: The pulmonic valve leaflets are thin and pliable; valve motion is normal. There is mild pulmonic regurgitation. Great Vessels: The aortic root is normal size. The dimensions of the ascending aorta are normal. The IVC is of normal diameter and collapses greater than 50% with a sniff. This suggests a low right atrial pressure of 3 mm Hg. Pericardium/ Pleura There is no pericardial effusion. There is no pleural effusion. MMode/2D Measurements & Calculations LVIDd: 4.8 cm LVOT diam: 2.0 cm LVIDs: 3.3 cm Ao root diam: 2.4 cm FS: 30.9 % asc Aorta Diam: 3.4 cm EPSS: 0.67 cm Ao Arch Diam (Prox Trans): 3.1 cm IVSd: 0.87 cm LVPWd: 0.96 cm LV martinez. diameter/BSA (cm/m^2): 2.5 LV sys. diameter/BSA (cm/m^2): 1.8 LA A2 area: 23.2 cm2 RA long axis: 5.1 cm LA A4 area: 21.6 cm2 RA area: 15.1 cm2 LA length (vol): 5.4 cm RA vol: 38.0 ml LA vol: 78.2 ml RA : 20.3 ml/m2 LA vol index: 41.7 ml/m2 IVC diam: 1.8 cm RVD1 (basal): 3.1 cm RVD2 (mid): 3.1 cm TAPSE: 2.2 cm Doppler Measurements & Calculations Ao V2 max: 407.9 cm/sec LVOT Max Rainer: 120.5 cm/sec Ao V2 mean: 280.8 cm/sec LV V1 max P.8 mmHg Ao max P.2 mmHg LV V1 VTI: 32.4 cm Ao mean P.6 mmHg SVETLANA(I,D): 0.98 cm2 Ao V2 VTI: 104.3 cm SVETLANA(V,D): 0.93 cm2 sev ratio: 0.31 SVETLANA indexed to BSA (cm^2/m^2): 0.52 AI P1/2t: 489.7 msec AI dec slope: 245.5 cm/sec2 MV E max rainer: 118.2 cm/sec TR max rainer: 382.1 cm/sec MV A max rainer: 95.2 cm/sec TR max P.4 mmHg MV E/A: 1.2 PA V2 max: 128.0 cm/sec Med Peak E' Rainer: 6.3 cm/sec PA V2 mean: 76.8 cm/sec E/E' med: 18.9 PA mean P.7 mmHg Lat Peak E' Rainer: 6.7 cm/sec E/E' lat: 17.7 E/e' average: 18.3 MV dec time: 0.23 sec MVA(VTI): 2.1 cm2 MR ERO: 0.19 cm2 MV V2 mean: 94.0 cm/sec MR PISA: 2.9 cm2 MV mean P.7 mmHg MR flow rate: 117.4 cm3/sec MV V2 VTI: 49.8 cm MR PISA radius: 0.68 cm SV(LVOT): 102.2 ml Reading Physician:10:42 AM
== END ==
PROVIDERS: PCP Internal Medicine; Referring Provider Internal Medicine Cardiovascular Disease; Visit Provider Internal Medicine Cardiovascular Disease
DX: I08.3 Combined rheumatic disorders of mitral, aortic and tricuspid valves (principal)
CPT/HCPCS: 93306

== ENCOUNTER → 2024-09-11 12:33 | Outpatient (CLI) | payer MEDICARE, SELFPAY ==
[2023-08-08 13:18] VITALS: BMI 26.6
[2024-09-11 13:50] LABS: Add Manual Diff / Slide Review NO; Basophils Absolute Auto 100 /uL (0-100); Basophils Percent Auto 0.8 % (0-2); Eosinophils Absolute Auto 300 /uL (0-450); Hemoglobin 12.7 g/dL (12.0-16.0); Lymphocytes Absolute Auto 1200 /uL (1100-4500); Mean Corpuscular HGB Conc 32.6 % (30-36); Mean Corpuscular Hemoglobin 25.9 PG (26-34); Mean Corpuscular Volume 79.6 fL (80-100); Monocytes Absolute Auto 700 /uL (0-900); Monocytes Percent Auto 7.6 % (3-14); Neutrophils Absolute Auto 7400 /uL (1500-7000); Neutrophils Percent Auto 76.6 % (50-75); Platelet Count 255 X10^3/uL (150-400); Red Cell Distribution Width 17.6 % (11.6-14.8); White Blood Cell Count 9.7 X10^3/uL (4.5-11.0)
== END ==
PROVIDERS: PCP Internal Medicine; Referring Provider Internal Medicine Cardiovascular Disease; Visit Provider Internal Medicine Cardiovascular Disease
DX: I48.91 Unspecified atrial fibrillation (principal)
CPT/HCPCS: 36415; 85025

== ENCOUNTER → 2024-12-18 12:51 | Outpatient (CLI) | payer MEDICARE, SELFPAY ==
[2023-08-08 13:18] VITALS: BMI 26.6
--- NOTE | 2024-12-18 13:10 | DI.MG.S_ITS ---
Patient Name: JORDAN GONSALVES date: 1940 Sex: F Attending Physician: Lisa Indications: Date: 12/18/2024 20:39 At the request of: MAURO RODRIGUEZ Procedure: MM screening mammo BI MM screening mammo BI: 12/18/2024. BI-RADS: 0 CLINICAL: 84-year old female for bilateral screening mammogram. No Tyrer-Cuzick risk score calculation due to the patient's personal history of breast cancer. Patient reports a history of bilateral breast carcinoma diagnosed at age 59. Status-post bilateral lumpectomies with radiation therapy and hormonal therapy. No first-degree family history of breast cancer. The patient had prior bilateral breast biopsies. PRIOR EXAMS 12/18/2023, 11/11/2022, 11/10/2021, 11/05/2020, MAMMOGRAPHY TECHNIQUE: 2D and 3D (tomosynthesis) digital mammographic views obtained, with additional images as needed for full coverage. Current study was also evaluated with a Computer Aided Detection (CAD) system. DENSITY C. The breasts are heterogeneously dense, which may obscure small masses. MAMMOGRAPHY FINDINGS Right: No suspicious mass, asymmetry, microcalcification, or other abnormality seen. Left: Lower Inner at 7:00, Anterior depth: Calcifications needing additional imaging evaluation. Possible increasing heterogeneous, punctate calcifications. IMPRESSION: Right * No evidence of malignancy. Left (Calcification): Lower Inner at 7:00, Anterior depth Continued Report - Page 2 of 2 Patient Name: JORDAN GONSALVES date: 1940 Sex: F Attending Physician: Lisa Indications: Date: 12/18/2024 20:39 At the request of: MAURO RODRIGUEZ Procedure: MM screening mammo BI * Incomplete - calcification needing additional imaging evaluation. RECOMMENDATIONS Left: Lower Inner at 7:00, Anterior depth * Further evaluation with diagnostic mammography. OVERALL ASSESSMENT CATEGORY BI-RADS-0: Incomplete - Need Additional Imaging Evaluation. ELECTRONICALLY SIGNED: Max Mckenzie M.D. on 12/18/2024 at 08:39:23 PM PT Interpreting Station ID: [id number]
== END ==
LOC: MAMMO 12:52
PROVIDERS: PCP Internal Medicine; Referring Provider Internal Medicine; Visit Provider Internal Medicine
DX: Z12.31 Encounter for screening mammogram for malignant neoplasm of breast (principal); Z85.3 Personal history of malignant neoplasm of breast; R92.333 Mammographic heterogeneous density, bilateral breasts; R92.1 Mammographic calcification found on diagnostic imaging of breast
CPT/HCPCS: 77063; 77067

== ENCOUNTER → 2025-02-27 10:53 | Outpatient (CLI) | payer MEDICARE, SELFPAY ==
[2023-08-08 13:18] VITALS: BMI 26.6
[2025-02-27 11:29] LABS: Hematocrit 37.9 % (36-46); Hemoglobin 12.5 g/dL (12.0-16.0); Mean Corpuscular HGB Conc 32.9 % (30-36); Mean Corpuscular Hemoglobin 26.9 PG (26-34); Mean Corpuscular Volume 81.6 fL (80-100); Platelet Count 218 X10^3/uL (150-400)
[2025-02-27 12:22] LABS: Blood Urea Nitrogen 25 mg/dL (7-17); Calcium 9.5 mg/dL (8.4-10.2); Carbon Dioxide 23 mmol/L (22-32); Chloride 105 mmol/L (98-107); Estimated Glomerular Filt Rate 34 mL/min (>60); Glucose 106 mg/dL (70-99); HEMOLYSIS < 15 (0-50); Potassium 4.9 mmol/L (3.4-5.1); Sodium 138 mmol/L (137-145)
== END ==
PROVIDERS: PCP Internal Medicine; Referring Provider Internal Medicine Cardiovascular Disease; Visit Provider Internal Medicine Cardiovascular Disease
DX: I50.32 Chronic diastolic (congestive) heart failure (principal)
CPT/HCPCS: 80048; 85027

== ENCOUNTER 2025-05-02 04:41 | Emergency (ER) | payer MEDICARE, SELFPAY ==
[2023-08-08 13:18] VITALS: BMI 26.6
[2025-05-02 04:48] VITALS: BP 207/84; PULSE 75; RESP 14; TEMP 36.6; O2SAT 100; BMI 25.8
[2025-05-02 05:17] VITALS: BP 177/81; PULSE 63; PULSE 64; RESP 14; RESP 16; O2SAT 99
--- NOTE | 2025-05-02 05:18 | DI.RAD.S_ITS ---
PROCEDURE: XR CHEST 1V INDICATIONS: chest pain TECHNIQUE: One view of the chest was acquired. COMPARISON: [facility], CR, XR CHEST 1V, 10/19/2023, 5:43. FINDINGS: Surgical changes and devices: 2 lead cardiac pacemaker. Surgical clips along the left chest wall and projecting over the right lower lung. Lungs and pleura: Faint interstitial markings. No focal consolidation. No pleural effusions or pneumothorax. Mediastinum: Mediastinal contours appear normal. Heart size is normal. Bones and chest wall: No suspicious bony lesions. Overlying soft tissues appear unremarkable. IMPRESSION: No acute cardiopulmonary abnormality is seen. Dictated by: Josiah Jenkins M.D. on 05/02/2025 at 8:01 Approved by: Josiah Jenkins M.D. on 05/02/2025 at 8:04
[2025-05-02 05:29] LABS: Add Manual Diff / Slide Review NO; Hematocrit 37.4 % (36-46); Hemoglobin 12.5 g/dL (12.0-16.0); Lymphocytes Absolute Auto 1800 /uL (1100-4500); Mean Corpuscular HGB Conc 33.5 % (30-36); Mean Corpuscular Hemoglobin 27.2 PG (26-34); Mean Corpuscular Volume 81.2 fL (80-100); Platelet Count 192 X10^3/uL (150-400)
[2025-05-02 05:30] VITALS: BP 149/65; PULSE 60; RESP 15; O2SAT 98
--- NOTE | 2025-05-02 05:30 | ED.ARRPALP ---
HPI - Arrhythmia/Palpitations General Chief Complaint: Arrhythmia/Palpitations Stated Complaint: Irregular heart beat, has pacemaker, Poss HBP Time Seen by Provider: 05/02/25 05:04 Source: patient Mode of arrival: Ambulatory History of Present Illness HPI narrative: Patient is a 84-year-old female history of atrial fibrillation, hypertension on Eliquis with pacemaker presenting today with heart palpitations. She feels like it woke her up from her sleep tonight. Not dizzy or lightheaded denies any syncope. He has noted that she says increase the blood pressure that her blood pressure is not as well as control does not use to be. She denies any headache she is not having any chest pain now. But does occasionally feel the PVC on the monitor. Related Data Home Medications ?Medication ?Instructions ?Recorded ?Confirmed cholecalciferol (vitamin D3) 50 50 mcg PO DAILY 03/03/20 05/02/25 mcg (2,000 unit) capsule ascorbate calcium (vitamin C) 1 cap PO DAILY vitamin 03/19/21 05/02/25 spironolactone 25 mg tablet 25 mg PO DAILY 11/03/23 05/02/25 allopurinol 100 mg tablet 100 mg PO DAILY PRN gout 01/30/24 05/02/25 apixaban 5 mg tablet (Eliquis) 2.5 mg PO BID 04/08/25 05/02/25 Previous Rx's ?Medication ?Instructions ?Recorded lisinopril 40 mg tablet 40 mg PO DAILY #90 tabs 09/09/24 simvastatin 20 mg tablet 20 mg PO QDAY #90 tabs 11/19/24 omeprazole 40 mg capsule,delayed 40 mg PO HS #90 caps 02/10/25 release metoprolol succinate 25 mg 25 mg PO BID #180 tabs 04/18/25 tablet,extended release 24 hr propranolol 10 mg tablet 10 mg PO QID PRN hypertension #30 04/18/25 tabs Allergies Allergy/AdvReac Type Severity Reaction Status Date / Time No Known Drug Allergies Allergy Verified 05/02/25 04:46 Patient History Medical History Paroxysmal atrial fibrillation Frequent PVCs Syncope Aortic stenosis (~07/2023) Chronic gout Chronic renal failure, stage 3a Elevated liver enzymes (~2017) Difficulty swallowing Bilateral breast cancer Cardiac murmur Carotid bruit Hypertension Cholelithiasis (~01/2016) Pancreatitis Gastroesophageal reflux disease (02/07/14) History of malignant neoplasm of breast (08/31/11) Hyperlipidemia (08/31/11) Essential hypertension (08/31/11) Surgical History History of permanent cardiac pacemaker placement S/P knee replacement (~06/2019) Hx of bilateral cataract extraction (~10/2018) History of lumpectomy of both breasts History of colonoscopy Hx of tonsillectomy Status post laparoscopic cholecystectomy (04/07/16) Status post appendectomy (~1958) Social History marital status: number of children: 4 household members: none lives independently: Yes caregiver/support person: No housing: house pets and animals: No education level: college occupational status: employed current occupational exposures/hazards: Yes prince/yazidism: Orthodox travel history: recent leisure activities: exercise and other Smoking Status: Never smoker Tobacco: How many years used: 0 quit status: quit date established second hand exposure: No alcohol intake: current substance use type: does not use Smoking Status: Never smoker alcohol intake frequency: holidays/special occasions only Exam Initial Vital Signs Initial Vital Signs: Vital Signs Temperature 97.8 F 05/02/25 04:48 Pulse Rate 75 05/02/25 04:48 Respiratory Rate 14 05/02/25 04:48 Blood Pressure 207/84 H 05/02/25 04:48 Pulse Oximetry 100 05/02/25 04:48 Oxygen Delivery Method Room Air 05/02/25 04:48 GENERAL: Alert well-appearing 84-year-old female and in no acute distress. HEENT: Head atraumatic,EOMI, pupils reactive, face symmetric, moist mucous membranes CARDIOVASCULAR: Regular rate and rhythm without murmurs, rubs or gallops. RESPIRATORY: Breath sounds equal bilaterally, no wheezes rales or rhonchi. ABDOMEN: Soft, nontender. Normoactive bowel sounds all 4 quadrants. No guarding or rebound. EXTREMITIES: Normal range of motion, no clubbing or edema. Neurovascularly intact NEUROLOGICAL: Alert and oriented x4.Normal gait and speech. Cranial nerves II through XII grossly intact. SKIN: Warm, dry, no laceration, no petechiae, no rashes or lesions. Course Orders Ordered: ED Orders 05/02/25 05:05 Complete Blood Count AUTO DIFF Stat Comprehensive Metabolic Panel Stat Lipase Stat Magnesium Stat NT-proBNP (BNP-Adult 18+) Stat PTT Partial Thromboplastin Gino Stat Prothrombin Time INR Stat Troponin I Stat 05/02/25 05:18 XR chest 1V Stat EKG-12 Lead Stat Vital Signs Vital signs: Vital Signs - 8 hr 05/02/25 04:48 05/02/25 05:17 05/02/25 05:17 Temperature 97.8 F Pulse Rate 75 63 64 Respiratory Rate 14 16 14 Blood Pressure 207/84 H 177/81 H Pulse Oximetry 100 99 99 Oxygen Delivery Method Room Air Room Air 05/02/25 05:30 05/02/25 05:30 05/02/25 06:00 Temperature Pulse Rate 60 60 Respiratory Rate 15 14 Blood Pressure 149/65 H Pulse Oximetry 98 97 Oxygen Delivery Method 05/02/25 06:00 Temperature Pulse Rate Respiratory Rate Blood Pressure 144/63 H Pulse Oximetry Oxygen Delivery Method MDM - Arrhythmia/Palpitations Lab Data 05/02/25 05:05 05/02/25 05:05 Labs: Lab Results 05/02/25 Range/Units 05:05 WBC 7.7 (4.5-11.0) X10^3/uL RBC 4.60 (4.0-5.2) X10^6/uL Hgb 12.5 (12.0-16.0) g/dL Hct 37.4 (36-46) % MCV 81.2 (80-100) fL MCH 27.2 (26-34) PG MCHC 33.5 (30-36) % RDW 15.0 H (11.6-14.8) % Plt Count 192 (150-400) X10^3/uL Neut % (Auto) 61.5 (50-75) % Lymph % (Auto) 22.9 L (25-40) % [place] % (Auto) 9.8 (3-14) % Eos % (Auto) 4.8 H (2-4) % Baso % (Auto) 1.0 (0-2) % Neut # (Auto) 4700 (8574-9649) /uL Lymph # (Auto) 1800 (9210-3291) /uL [place] # (Auto) 800 (0-900) /uL Eos # (Auto) 400 (0-450) /uL Baso # (Auto) 100 (0-100) /uL PT 13.2 H (9.4-12.5) SECONDS INR 1.2 (0.9-1.3) APTT 34 (25.1-36.5) SECONDS Sodium 141 (137-145) mmol/L Potassium 4.4 (3.4-5.1) mmol/L Chloride 109 H (98-107) mmol/L Carbon Dioxide 21 L (22-32) mmol/L BUN 31 H (7-17) mg/dL Creatinine 1.36 H (0.52-1.04) mg/dL Estimated GFR 39 L (>60) mL/min BUN/Creatinine Ratio 22.8 H (6-22) Glucose 95 (70-99) mg/dL Calcium 9.5 (8.4-10.2) mg/dL Magnesium 1.8 (1.6-2.3) mg/dL Total Bilirubin 0.4 (0.2-1.3) mg/dL AST 26 (14-36) IU/L ALT 17 (<35) IU/L Alkaline Phosphatase 78 (38-126) U/L Troponin I 0.013 (0.01-0.034) ng/mL NT-Pro-B Natriuret Pep 1060 H (<450) pg/mL Total Protein 7.6 (6.3-8.2) g/dL Albumin 4.5 (3.5-5.0) g/dL Globulin 3.1 (1.7-4.1) g/dL Albumin/Globulin Ratio 1.5 (1.0-2.8) Lipase 177 (23-300) U/L Imaging Data Chest x-ray: My Impression: Pacemaker in place no acute cardiopulmonary process ECG Data Attestation: I personally reviewed and interpreted this ECG as follows: Interpretation: Paced rhythm rate [address] changes no ischemia MDM Narrative Medical decision making narrative: Patient has not 84-year-old female history of atrial fibrillation pacemaker on Eliquis presenting today with chest pain and palpitations. She appears to be in sinus rhythm on the monitor with an occasional PVC. Pacemaker is being interrogated Blood work has been reviewed CBC no abnormalities CMP appear stable creatinine 1.36 which is improved from previously at 1.52 Troponin negative BNP elevated 1060 Bilirubin liver enzymes within normal limits PVCs noted on monitor but rhythm is paced not in AFib Pacemaker interrogation is unremarkable Overall patient feeling back to normal she is in sinus rhythm feels ready able to go. At this time no need for any further workup Discharge Plan Departure Patient Disposition: Home Clinical Impression: PVC (premature ventricular contraction) Instructions: Premature Ventricular Beats Activity Restrictions/Additional Instructions: *You have been diagnosed with PVCs palpitations *What to do: At this time blood work is overall reassuring please follow up with Cardiology in your primary care *Continue to take medications as directed *Follow up with your primary care provider in 2-3 days or call [phone] *Return to ER if you should have increasing palpitations says in his chest pain shortness of breath or any new, worsening or concerning symptoms Prescriptions: No Action lisinopril 40 mg tablet 40 mg PO DAILY Qty: 90 3RF simvastatin 20 mg tablet 20 mg PO QDAY Qty: 90 3RF omeprazole 40 mg capsule,delayed release(DR/EC) 40 mg PO HS Qty: 90 0RF spironolactone 25 mg tablet 25 mg PO DAILY Eliquis 5 mg tablet 2.5 mg PO BID allopurinol 100 mg tablet 100 mg PO DAILY PRN (Reason: gout) cholecalciferol (vitamin D3) 50 mcg (2,000 unit) capsule 50 mcg PO DAILY ascorbate calcium (vitamin C) 1 cap PO DAILY propranolol 10 mg tablet 10 mg PO QID PRN (Reason: hypertension) Qty: 30 8RF metoprolol succinate 25 mg tablet extended release 24 hr 25 mg PO BID Qty: 180 3RF Referrals: Andrew Gonzalez MD [Primary Care Provider, Internal Medicine] Stand Alone Forms: Patient Portal/API
[2025-05-02 05:35] LABS: INR 1.2 (0.9-1.3); Prothrombin Time 13.2 SECONDS (9.4-12.5)
[2025-05-02 05:38] LABS: PTT Partial Thromboplastin Tim 34 SECONDS (25.1-36.5)
[2025-05-02 05:39] LABS: Alanine Aminotransferase 17 IU/L (<35); Albumin 4.5 g/dL (3.5-5.0); Albumin Globulin Ratio 1.5 (1.0-2.8); Alkaline Phosphatase 78 U/L (38-126); Blood Urea Nitrogen 31 mg/dL (7-17); Calcium 9.5 mg/dL (8.4-10.2); Carbon Dioxide 21 mmol/L (22-32); Chloride 109 mmol/L (98-107); Estimated Glomerular Filt Rate 39 mL/min (>60); Globulin 3.1 g/dL (1.7-4.1); Glucose 95 mg/dL (70-99); HEMOLYSIS 17 (0-50); Lipase 177 U/L (23-300); Magnesium 1.8 mg/dL (1.6-2.3); Potassium 4.4 mmol/L (3.4-5.1); Sodium 141 mmol/L (137-145); Total Protein 7.6 g/dL (6.3-8.2)
--- NOTE | 2025-05-02 05:40 | EKG_ITS ---
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
[2025-05-02 05:51] LABS: NT-proBNP (BNP-Adult 18+) 1060 pg/mL (<450); Troponin I 0.013 ng/mL (0.01-0.034)
[2025-05-02 06:00] VITALS: BP 144/63; PULSE 60; RESP 14; O2SAT 97
[2025-05-02 06:29] VITALS: BP 163/72; PULSE 62; RESP 16; O2SAT 98
== END 2025-05-02 06:30 | disposition home or self-care (01) ==
PROVIDERS: Emergency Provider Emergency Medicine; PCP Internal Medicine
DX: I49.3 Ventricular premature depolarization (principal); I48.91 Unspecified atrial fibrillation; R07.9 Chest pain, unspecified; I10 Essential (primary) hypertension; Z79.01 Long term (current) use of anticoagulants; Z95.0 Presence of cardiac pacemaker
CPT/HCPCS: 36415; 71045; 80053; 83690; 83735; 83880; 84484; 85025; 85610; 85730; 93005; 99283; 99284